=== PATIENT | male | born 1950 | race Caucasian/White ===

== ENCOUNTER 2016-03-14 17:41 | Inpatient (IN) | payer MEDICARE, OTHER ==
[~2016-03-14] VITALS: Ht 170.2 cm; Wt 72.0 kg
[~2016-03-14 17:41] MED LIST: ACET325T45 GTB; ALBU2.5V3 NEB; ASCO500C7 GTB; ASPI-535 GTB; BACL20TA GTB; BISA10SU58 PR; CHLO10TA4 GTB; CHOL2000 GTB; CRAN3875 GTB; DICY10CA60 GTB; DIPH25CA6 GTB; DOCU-159 PO; ENOX40DI14 SC; ESCI10TA48 GTB; FENO145T19 GTB; GLAT40SY SQ; HIPR1 GTB; IBAN3DIS2 IV; KEP100S GTB; LANS30CA GTB; LORA1TAB GTB; MAGN400O4 GTB; NA P118E PR; OMEG100011 GTB; POTA20LI5 GTB; SACC250C GTB; SALI44.32 MM; TYL500 GTB; UBID100T7 GTB; ZOLP5TAB6 GTB
[2016-03-14 18:00] VITALS: TEMP 97.8
[2016-03-14] MEDS ORDERED: SODIUM CHLORIDE 0.9% 1L BAG IV* STA (18:03)
[2016-03-14] MEDS ORDERED: CEFEPIME 2GM/50 ML (PMX) 50 ML IVPB STA (18:03)
[2016-03-14] MEDS ORDERED: ESCI10TA GTB (18:19)
[2016-03-14] MEDS ORDERED: FENO145T25 GTB (18:19)
[2016-03-14] MEDS ORDERED: LORA1TAB GTB (18:20)
[2016-03-14] MEDS ORDERED: ZOLP5TAB GTB (18:21)
[2016-03-14] MEDS ORDERED: LANS30CA GTB (18:22)
[2016-03-14 18:27] LABS: BASOPHILS % 0.6 % (0.0-2.0); EOSINOPHILS # 0.5 10^3/ul (0.0-0.5); EOSINOPHILS % 8.3 % (0.0-7.0); HEMATOCRIT 41.4 % (42.0-52.0); HEMOGLOBIN 13.8 g/dl (14.0-18.0); LYMPHOCYTES # 1.5 10^3/ul (0.8-2.9); LYMPHOCYTES % 26.5 % (15.0-51.0); MEAN CORPUSCULAR HEMOGLOBIN 31.8 pg (29.0-33.0); MEAN CORPUSCULAR HGB CONC 33.3 g/dl (32.0-37.0); MEAN CORPUSCULAR VOLUME 95.2 fl (82.0-101.0); MEAN PLATELET VOLUME 10.4 fl (7.4-10.4); MONOCYTE # 0.6 10^3/ul (0.3-0.9); MONOCYTES % 11.1 % (0.0-11.0); NEUTROPHIL # 2.9 10^3/ul (1.6-7.5); NEUTROPHILS % 53.5 % (39.0-77.0); PLATELET COUNT 230 10^3/UL (140-440); RED BLOOD COUNT 4.35 10^6/ul (4.70-6.10); RED CELL DISTRIBUTION WIDTH 13.7 % (11.5-14.5); UNCORRECTED WBC 5.5 10^3/ul (4.8-10.8); WHITE BLOOD COUNT 5.5 10^3/ul (4.8-10.8)
[2016-03-14] MEDS ORDERED: ENOX40DI14 SC (18:27)
[2016-03-14 18:28] LABS: CONDITION 1
[2016-03-14] MEDS ORDERED: VANCOMYCIN 1 GM (PMX) 250 ML IVPB ONE (18:30)
[2016-03-14 18:38] LABS: INR 1.04; PROTIME 13.6 Sec (12.2-14.2); PT RATIO 1.1
[2016-03-14 18:39] LABS: ALBUMIN 4.1 g/dl (3.3-4.9); CHLORIDE 102 mmol/L (97-110); PARTIAL THROMBOPLASTIN TIME 32.7 Sec (25.0-35.0); SODIUM 143 mmol/L (135-144)
[2016-03-14 18:41] LABS: CREATININE 0.72 mg/dl (0.61-1.24)
[2016-03-14 18:42] LABS: ALANINE AMINOTRANSFERASE 23 IU/L (13-69); ALBUMIN/GLOBULIN RATIO 1.07; ALKALINE PHOSPHATASE 55 IU/L (42-121); ANION GAP 16 (8-16); ASPARTATE AMINO TRANSFERASE 20 IU/L (15-46); BILIRUBIN,INDIRECT 0.1 mg/dl (0-1.1); BILIRUBIN,TOTAL 0.1 mg/dl (0.2-1.3); BLOOD UREA NITROGEN 12 mg/dl (7-20); CALCIUM 9.3 mg/dl (8.4-10.2); CARBON DIOXIDE 29 mmol/L (21-31); GLUCOSE 87 mg/dl (70-220); TOTAL PROTEIN 7.9 g/dl (6.1-8.1)
[2016-03-14 18:46] LABS: ADD UMIC YES; URINE BILIRUBIN (Dip) NEGATIVE (NEGATIVE); URINE BLOOD (Dip) 3+ (NEGATIVE); URINE COLOR DK. RED (YELLOW); URINE KETONES (Dip) 15 (NEGATIVE); URINE LEUKOCYTE ESTERASE (Dip) 2+ (NEGATIVE); URINE NITRITE (Dip) POSITIVE (NEGATIVE); URINE TOTAL PROTEIN (Dip) 4+ (NEGATIVE); URINE UROBILINOGEN (Dip) 4.0 E.U./dL (0.1-1.0)
[2016-03-14 18:50] LABS: URINE RBCS >200 /HPF (0)
[2016-03-14 18:51] LABS: BACTERIA,URINE FEW; SQUAMOUS EPITHELIAL CELL,UR OCCASIONAL
--- NOTE | 2016-03-14 18:52 | RADRPT ---
PROCEDURE: XR Chest. CLINICAL INDICATION: Sepsis TECHNIQUE: Anterior chest x-ray. COMPARISON: 01/11/2016 FINDINGS: Exam is limited due to rotated positioning. Tracheostomy is unchanged from previous exam. The lungs are clear. No pleural effusion identified. There is no evidence of pneumothorax. The cardiomediastinal silhouette is unremarkable. The soft tissues are normal. Osseous structures are unremarkable. IMPRESSION: 1. No acute disease is seen in the chest. No significant change from previous exam. RPTAT: QQ .Matheus Hearn MD, MD Date Time Electronically viewed and signed by .Matheus Hearn MD, MD on 03/14/2016 18:51 .M/
[2016-03-14 18:57] LABS: TROPONIN-I < 0.012 ng/ml (0.00-0.12)
[2016-03-14] MEDS ORDERED: ONDANSETRON 4 MG INJ IV PRN ×3 (19:30→22:00)
[2016-03-14] MEDS ORDERED: ACETAMINOPHEN 325 MG TAB PO PRN (19:30)
--- NOTE | 2016-03-14 19:51 | ERA ---
ER Documentation Chief Complaint Date/Time DATE: 03/14/16 TIME: 19:48 Chief Complaint blood in urine since this morning HPI Patient is a 65-year-old male with multiple sclerosis and previous UTI who presents with blood in his Brock catheter. He has a history of sepsis and UTI. He came from a nursing facility. He has a history of ESBL in the urine per the . His blood started this morning in the Brock catheter. He had fever night. His primary doctors Dr. Brown and his urologist in the past is Dr. Douglas. Upon review of old medical records this is the patient's ninth visit to the ER since 2009. ROS All systems reviewed and are negative except as per history of present illness. Medications Home Meds Reported Medications Enoxaparin Sodium* (Lovenox*) 40 Mg/0.4 Ml Syringe, 40 MG SC DAILY, SYR 03/14/16 Lansoprazole* (Lansoprazole*) 30 Mg Capsule.dr, 30 MG GTB DAILY, CAP 03/14/16 Zolpidem Tartrate* (Ambien*) 5 Mg Tablet, 5 MG GTB QHS Y for INSOMNIA, #30 TAB 03/14/16 Lorazepam* (Lorazepam*) 1 Mg Tablet, 1 MG GTB HS, #30 TAB 03/14/16 Fenofibrate Nanocrystallized* (Tricor*) 145 Mg Tablet, 145 MG GTB QHS, TAB 03/14/16 Escitalopram Oxalate* (Lexapro*) 10 Mg Tablet, 10 MG GTB DAILY, #30 TAB 03/14/16 Diphenhydramine Hcl* (Diphenhydramine Hcl*) 25 Mg Capsule, 25 MG GTB DAILY Y for ITCHING, CAP 01/11/16 Ubidecarenone (COENZYME Q10) 100 Mg Tablet, 200 MG GTB DAILY, TAB 07/18/15 Saliva Stimulant Agents Comb.2 (Biotene Oralbalance) 44.3 Ml Liquid, 1 TBS MM Q6 RINSE FOR 30 SECONDS THEN SPIT OUT 10/11/14 Saccharomyces Boulardii* (Florastor*) 250 Mg Cap, 250 MG GTB BID, CAP 10/11/14 Potassium Chloride* (Potassium Chloride*) 20 Meq/15 Ml Liquid, 20 MEQ GTB DAILY , ML 10/11/14 Voss-3 Fatty Acids/Fish Oil* (Fish Oil *) 1,000 Mg Capsule, 1000 MG GTB DAILY, CAP 10/11/14 Levetiracetam* (Keppra* (Ped)) 100 Mg/Ml Liq, 1000 MG GTB BID for 30 Days, BOTTLE 10/11/14 Ibandronate Sodium (Boniva) 3 Mg/3 Ml/Box Syringekit, 3 MG IV Q90 DAYS 10/11/14 Glatiramer Acetate (Copaxone) 40 Mg/1 Ml Syringe, 40 MG SQ MON,WED,Wed10/11/14 Dicyclomine Hcl* (Bentyl*) 10 Mg Capsule, 10 MG GTB BID, CAP 10/11/14 Cholecalciferol* (Vitamin D3*) 2,000 Unit Cap, 2000 UNIT GTB DAILY, CAP 10/11/14 Chlorpromazine Hcl* (Chlorpromazine Hcl*) 10 Mg Tablet, 10 MG GTB Q12 PRN, TAB 10/11/14 Baclofen* (Baclofen*) 20 Mg Tablet, 20 MG GTB QID, TAB 10/11/14 Methenamine Hippurate* (Hiprex*) 1 Gm Tab, 1 GM GTB BID 11/29/12 Aspirin Ec (Aspir 81) 81 Mg Tablet.dr, 81 MG GTB DAILY 11/29/12 Discontinued Reported Medications Escitalopram Oxalate* (Escitalopram Oxalate*) 10 Mg Tablet, 10 MG GTB DAILY, # 30 TAB 01/11/16 Docusate Sodium* (Docusate Sodium*) 100 Mg Capsule, 200 MG PO BID, #60 CAP 01/11/16 Lorazepam* (Lorazepam*) 1 Mg Tablet, 1 MG GTB DAILY Y for MUSCLE SPASMS, #30 TAB 01/11/16 Zolpidem Tartrate* (Zolpidem Tartrate*) 5 Mg Tablet, 5 MG GTB QHS Y for INSOMNIA , #30 TAB 01/11/16 Fenofibrate Nanocrystallized* (Fenofibrate*) 145 Mg Tablet, 145 MG GTB QHS, TAB 01/11/16 Acetaminophen* (Acetaminophen*) 325 Mg Tablet, 650 MG GTB Q6 Y for TEMP >101F, # 30 TAB 01/11/16 Ascorbic Acid* (Vitamin C*) 500 Mg Capsule.sa, 500 MG GTB DAILY, CAP 07/18/15 Cran/Vitc/Mannose/Inulin/Brom (Uti-Stat Liquid) 3,875 Mg/30 Ml Liquid, 3875 MG GTB 07/18/15 Magnesium Hydroxide* (Milk Of Magnesia*) 400 Mg/5 Ml Oral.susp, 30 ML GTB DAILY , ML 07/18/15 Na Phos,M-B/Na Phos,Di-Ba* (Fleet* Enema) 118 Ml Enema, 118 ML WV Q48H Y for CONSTIPATION, ENEMA 07/18/15 Bisacodyl* (Dulcolax*) 10 Mg/Supp.rect Supp.rect, 10 MG WV DAILY Y for CONSTIPATION, SUPP.RECT 07/18/15 Acetaminophen* (Tylenol*) 500 Mg Tab, 1000 MG GTB Q8H Y for PAIN 4-6, TAB TAKE EVERY DAY FOR PAIN AND PRIOR TO IVIG INFUSION 10/11/14 Albuterol Sulfate* (Albuterol Sulfate* Neb) 0.083%-3 Ml Neb, 2.5 MG NEB Q6 Y for WHEEZING AND SOB, EA WITH ATROVENT 0.5 MG UD VIA Q6H 10/11/14 Lansoprazole* (Lansoprazole*) 30 Mg Capsule.dr, 30 MG GTB DAILY, CAP 10/11/14 Enoxaparin Sodium* (Lovenox*) 40 Mg/0.4 Ml Syringe, 40 MG SC DAILY, SYR 10/11/14 Allergies Allergies: Coded Allergies: phenobarbital (Verified Allergy, Mild, UNK, 03/14/16) phenytoin (Verified Allergy, Mild, UNK, 03/14/16) PMhx/Soc History of Surgery: Yes (PEG, TRACH, RENAL STONES REMOVAL) Anesthesia Reaction: No Hx Neurological Disorder: Yes (MS) Hx Respiratory Disorders: Yes (VENT DEPENDENT) Hx Cardiac Disorders: Yes (CHF) Hx Psychiatric Problems: Yes Hx Miscellaneous Medical Probl: No Hx Alcohol Use: Yes Hx Substance Use: No Hx Tobacco Use: No Smoking Status: Unknown if ever smoked FmHx Family History: No diabetes Physical Exam Vitals Vital Signs Date Time Temp Pulse Resp B/P Pulse Ox O2 Delivery O2 Flow Rate FiO2 03/14/16 19:32 73 18 104/68 100 Room Air Trach Collar 03/14/16 18:00 97.8 74 20 107/65 97 Room Air 03/14/16 17:46 97.8 82 20 113/59 97 Physical Exam Const: Chronically ill Head: Atraumatic Eyes: Normal Conjunctiva ENT: Normal External Ears, Nose and Mouth. Neck: Full range of motion..~ No meningismus. Resp: Clear to auscultation bilaterally Cardio: Regular rate and rhythm, no murmurs Abd: Soft, non tender, non distended. Normal bowel sounds, G-tube in place Skin: No petechiae or rashes Back: No midline or flank tenderness Ext: No cyanosis, or edema Neur: Awake and alert : Brock catheter in place with gross hematuria in the tube and bag Result Diagram: 03/14/16181403/14/161814 Results 24 hrs Laboratory Tests Test 03/14/16 18:15 03/14/16 18:25 Activated Partial Thromboplast Time 32.7Sec Alanine Aminotransferase (ALT/SGPT) 23IU/L Albumin 4.1g/dl Albumin/Globulin Ratio 1.07 Alkaline Phosphatase 55IU/L Anion Gap 16 Aspartate Amino Transf (AST/SGOT) 20IU/L Basophils # 0.010^3/ul Basophils % 0.6% Blood Urea Nitrogen 12mg/dl Calcium Level 9.3mg/dl Carbon Dioxide Level 29mmol/L Chloride Level 102mmol/L Creatinine 0.72mg/dl Direct Bilirubin 0.00mg/dl Eosinophils # 0.510^3/ul Eosinophils % 8.3% Globulin 3.80g/dl Glucose Level 87mg/dl Hematocrit 41.4% Hemoglobin 13.8g/dl INR International Normalized Ratio 1.04 Indirect Bilirubin 0.1mg/dl Lactic Acid Level 1.2mmol/L Lymphocytes # 1.510^3/ul Lymphocytes % 26.5% Mean Corpuscular Hemoglobin 31.8pg Mean Corpuscular Hemoglobin Concent 33.3g/dl Mean Corpuscular Volume 95.2fl Mean Platelet Volume 10.4fl Monocytes # 0.610^3/ul Monocytes % 11.1% Neutrophils # 2.910^3/ul Neutrophils % 53.5% Nucleated Red Blood Cells # 0.010^3/ul Nucleated Red Blood Cells % 0.0/100WBC Platelet Count 71508^3/UL Potassium Level 4.0mmol/L Prothrombin Time 13.6Sec Prothrombin Time Ratio 1.1 Red Blood Count 4.3510^6/ul Red Cell Distribution Width 13.7% Sodium Level 143mmol/L Total Bilirubin 0.1mg/dl Total Protein 7.9g/dl Troponin I < 0.012ng/ml White Blood Count 5.510^3/ul Urine Bacteria FEW Urine Bilirubin NEGATIVE Urine Clarity BLOODY Urine Color DK. RED Urine Glucose 0.1%% Urine Hemoglobin 3+ Urine Ketones 15 Urine Leukocyte Esterase 2+ Urine Microscopic RBC >200/HPF Urine Microscopic WBC 10-25/HPF Urine Nitrite POSITIVE Urine Specific [place] 1.010 Urine Squamous Epithelial Cells OCCASIONAL Urine Total Protein 4+ Urine Urobilinogen 4.0 E.U./dL Urine pH 7.0 Current Medications Medications (Trade) Dose Ordered Sig/Kobe Route PRN Reason Start Time Stop Time Status Last Admin Dose Admin Sodium Chloride 2230 ml 2,230 ml BOLUS OVER 2 HOURS STAT IV* 03/14/16 18:03 03/14/16 18:05 DC 03/14/16 18:29 Cefepime HCl 50 ml @ 100 mls/hr ONCE STAT IVPB 03/14/16 18:03 03/14/16 18:32 DC 03/14/16 18:29 Vancomycin HCl (Vancocin) 250 ml @ 125 mls/hr ONCE ONCE IVPB 03/14/16 18:30 03/14/16 20:29 Ondansetron HCl (Zofran Inj) 4 mg BRIDGE ORDER PRN IV NAUSEA AND/OR VOMITING 03/14/16 19:30 03/15/16 19:29 Acetaminophen (Tylenol Tab) 650 mg ER BRIDGE PRN PO MILD PAIN/FEVER 03/14/16 19:30 03/15/16 19:29 Procedures/MDM EKG read by me: Rate/Rhythm: Regular rate and rhythm at a normal rate Intervals: Normal Impression: No evidence of ischemia or arrhythmia Chest x-ray negative per radiology. Patient is a 65-year-old male who presents with acute cystitis. He is complicated given the fact that he has MS and a chronic indwelling Brock catheter. The patient was given broad-spectrum antibiotics of vancomycin and cefepime. He was given at 30 mL/kg fluid bolus for fluid resuscitation as well. However at this point I doubt sepsis. I believe the patient has hematuria secondary to the cystitis. The patient will be admitted to the care of Dr. Hale who is covering for Dr. Brown. I will leave consultation for urology up to the inpatient team given the fact that treatment of the UTI may help the hematuria as well. The patient will be admitted to a medical surgical bed. I do believe that inpatient admission is required. The patient has anemia but no need for transfusion at this time. Departure Diagnosis: Primary Impression: Hematuria Additional Impressions: UTI (urinary tract infection) Qualified Code: N30.01 - Acute cystitis with hematuria Anemia Qualified Code: D64.9 - Anemia, unspecified type Condition: MARIE Stephen MD Mar 14, 2016 19:51
[2016-03-14 20:48] VITALS: Ht 170.2 cm; Wt 72.0 kg
[2016-03-14 21:03] VITALS: BP 121/60; PULSE 66; RESP 18
[2016-03-14] MEDS ORDERED: morphine 2 MG INJ IV PRN (21:30)
[2016-03-14] MEDS ORDERED: ZOLPIDEM 5 MG TAB GTB PRN (21:30)
[2016-03-14] MEDS ORDERED: NON-FORMULARY/PATIENT OWN MED (Glatiramer Acetate (Copaxone) 40 MG) SQ SCH (21:30)
[2016-03-14] MEDS ORDERED: IBANDRONATE SODIUM XX SCH (21:30)
[2016-03-14] MEDS: ALBUTEROL 0.083% (NEB) 2.5 MG/3 ML AMP HHN PRN (22:34)
[2016-03-15] MEDS: LORAZEPAM 1 MG TAB GTB SCH ×3 (00:40→23:49)
[2016-03-15 06:16] LABS: HEMATOCRIT 37.2 % (42.0-52.0); HEMOGLOBIN 12.6 g/dl (14.0-18.0); LYMPHOCYTES % 17.9 % (15.0-51.0); MEAN CORPUSCULAR HGB CONC 33.9 g/dl (32.0-37.0); MEAN CORPUSCULAR VOLUME 94.3 fl (82.0-101.0); MEAN PLATELET VOLUME 11.1 fl (7.4-10.4); NEUTROPHILS % 64.7 % (39.0-77.0); PLATELET COUNT 193 10^3/UL (140-440); RED BLOOD COUNT 3.95 10^6/ul (4.70-6.10); RED CELL DISTRIBUTION WIDTH 13.6 % (11.5-14.5); UNCORRECTED WBC 6.3 10^3/ul (4.8-10.8); WHITE BLOOD COUNT 6.3 10^3/ul (4.8-10.8)
[2016-03-15 06:17] LABS: BASOPHILS % 0.6 % (0.0-2.0); EOSINOPHILS # 0.5 10^3/ul (0.0-0.5); EOSINOPHILS % 7.8 % (0.0-7.0); LYMPHOCYTES # 1.1 10^3/ul (0.8-2.9); MONOCYTE # 0.6 10^3/ul (0.3-0.9); NEUTROPHIL # 4.1 10^3/ul (1.6-7.5)
[2016-03-15 06:18] LABS: POTASSIUM 3.8 mmol/L (3.5-5.1)
[2016-03-15 06:20] LABS: CREATININE 0.67 mg/dl (0.61-1.24)
[2016-03-15 06:21] LABS: CALCIUM 8.4 mg/dl (8.4-10.2)
[2016-03-15] MEDS: LANSOPRAZOLE 30 MG CAP GTB SCH (06:21)
[2016-03-15 07:01] LABS: CONDITION 1
[2016-03-15 08:10] VITALS: BP 105/60; RESP 18
[2016-03-15] MEDS: ALBUTEROL 0.083% (NEB) 2.5 MG/3 ML AMP HHN PRN (08:28)
[2016-03-15] MEDS: ASPIRIN (EC) 81 MG TAB PO SCH (09:00)
[2016-03-15] MEDS ORDERED: POTASSIUM CHLORIDE (1.33 MEQ/ML PO SYG) GTB SCH (09:00)
[2016-03-15] MEDS ORDERED: LEVETIRACETAM (100 MG/ML PO SYG) GTB SCH (09:00)
[2016-03-15] MEDS ORDERED: UBIDECARENONE 200 MG GTB SCH (09:00)
[2016-03-15] MEDS: ENOXAPARIN 30 MG/0.3 ML SYG SC SCH ×2 (09:00→21:00)
[2016-03-15] MEDS ORDERED: E LYTES MM PRN (10:30)
[2016-03-15] MEDS ORDERED: [UNRECOGNIZED DRUG - OTHER] MM PRN (10:30)
[2016-03-15] MEDS: ESCITALOPRAM 10 MG TAB GTB SCH (10:31)
[2016-03-15] MEDS: FISH OIL 1,000 MG CAP PO SCH (10:31)
[2016-03-15] MEDS: METHENAMINE 1 GM TAB GTB SCH ×2 (10:31→21:59)
[2016-03-15] MEDS: BACLOFEN 10 MG TAB GTB SCH ×4 (10:32→21:56)
[2016-03-15] MEDS: CHOLECALCIFEROL 2,000 UNIT CAP GTB SCH (10:32)
[2016-03-15] MEDS: SACCHAROMYCES BOULARDII 250 MG CAP GTB SCH ×2 (10:32→21:57)
[2016-03-15] MEDS: DICYCLOMINE 10 MG CAP GTB SCH ×2 (10:32→21:57)
[2016-03-15] MEDS: LEVETIRACETAM (100 MG/ML) 5ML CUP GTB SCH ×2 (10:32→21:56)
[2016-03-15] MEDS: CHLORPROMAZINE 10 MG TAB GTB SCH ×2 (10:33→21:00)
[2016-03-15] MEDS: POTASSIUM CHLORIDE 20 MEQ POWDER FOR ORAL SOLN GTB SCH (10:33)
[2016-03-15] MEDS: CEFEPIME 1GM/50 ML (PMX) 50 ML IVPB SCH ×2 (10:34→21:57)
--- NOTE | 2016-03-15 11:42 | HP ---
Date/Time of Note Date/Time of Note DATE: 03/15/16 TIME: 11:40 Assessment/Plan VTE Prophylaxis VTE Prophylaxis Intervention: other Lines/Catheters Urinary Cath still in place: Yes Reason Cath still needed: skin wounds contaminated by urine Assessment/Plan Chief Complaint/Hosp Course 1) hematuria - IV antibiotics - consult urology 2) respiratory failure - appear to be stable at this point 3) MS - continue medications 4) seizure disorder - continue medications Problems: HPI/ROS Admit Date/Time Admit Date/Time Mar 14, 2016 at 19:18 Hx of Present Illness Patient with multiple sclerosis, respiratory failure, and seizure disorder comes in with large amounts of hematuria. Patient has had this problem in the past. PMH/Family/Social Past Medical History multiple sclerosis seizure disorder respiratory failure Social History Alcohol Use: none Smoking Status: Never smoker Exam/Review of Systems Vital Signs Vitals Vital Signs Date Time Temp Pulse Resp B/P Pulse Ox O2 Delivery O2 Flow Rate FiO2 03/15/16 08:28 67 16 98 Nasal Cannula 2.0 03/15/16 08:10 97.4 105/60 03/14/16 22:35 21 Intake and Output 03/14/16 03/14/16 03/15/16 15:00 23:00 07:00 Intake Total 50 ml Output Total 600 ml Balance 50 ml -600 ml Exam Constitutional: alert, well developed Head: atraumatic, normocephalic Neck: supple Respiratory: clear to auscultation Cardiovascular: regular rate and rhythm Gastrointestinal: non-tender, soft Extremities: normal pulses Labs Result Diagram: 03/15/16 0500 03/15/16 0500 Medications Medications Current Medications Cefepime HCl (Maxipime 1gm/50 ml (Pmx)) 50 ml @ 100 mls/hr Q12 IVPB Last administered on 03/15/16 10:34; Admin Dose 100 MLS/HR; Start 03/15/16 at 09:00 Enoxaparin Sodium (Lovenox) 30 mg BID SC ; Start 03/15/16 at 09:00 Morphine Sulfate (morphine) 2 mg Q4H PRN IV pain; Start 03/14/16 at 21:30 Aspirin (Halfprin) 81 mg DAILY PO ; Start 03/15/16 at 09:00 Baclofen (Lioresal) 20 mg QID GTB Last administered on 03/15/16 10:32; Admin Dose 20 MG; Start 03/15/16 at 09:00 Chlorpromazine (Thorazine) 10 mg BID GTB Last administered on 03/15/16 10:33; Admin Dose 10 MG; Start 03/15/16 at 09:00 Cholecalciferol (Vitamin D) 2,000 unit DAILY GTB Last administered on 03/15/16 10:32; Admin Dose 2,000 UNIT; Start 03/15/16 at 09:00 Dicyclomine HCl (Bentyl) 10 mg BID GTB Last administered on 03/15/16 10:32; Admin Dose 10 MG; Start 03/15/16 at 09:00 Diphenhydramine HCl (Benadryl) 25 mg DAILY PRN GTB ITCHING; Start 03/14/16 at 21:30 Escitalopram Oxalate (Lexapro) 10 mg DAILY GTB Last administered on 03/15/16 10 :31; Admin Dose 10 MG; Start 03/15/16 at 09:00 Fenofibrate (Tricor) 145 mg QHS GTB ; Start 03/15/16 at 21:00 Lansoprazole (Prevacid) 30 mg DAILY@06 GTB Last administered on 03/15/16 06:21 ; Admin Dose 30 MG; Start 03/15/16 at 06:00 Lorazepam (Ativan) 1 mg HS GTB Last administered on 03/15/16 00:40; Admin Dose 1 MG; Start 03/15/16 at 00:00 Methenamine (Hiprex) 1 gm BID GTB Last administered on 03/15/16 10:31; Admin Dose 1 GM; Start 03/15/16 at 09:00 Fish Oil (Fish Oil) 1,000 mg DAILY PO Last administered on 03/15/16 10:31; Admin Dose 1,000 MG; Start 03/15/16 at 09:00 Saccharomyces Boulardii (Florastor) 250 mg BID GTB Last administered on 10:32; Admin Dose 250 MG; Start 03/15/16 at 09:00 Zolpidem Tartrate (Ambien) 5 mg QHS PRN GTB INSOMNIA; Start 03/14/16 at 21:30 Miscellaneous Information 40 mg MON,WED,FRI SQ ; Start 03/14/16 at 21:30; Status UNV Miscellaneous Information 1 tbs Q6 MM ; Start 03/15/16 at 00:00; Status UNV Levetiracetam (Keppra Liquid) 1,000 mg BID GTB Last administered on 03/15/16 10 :32; Admin Dose 1,000 MG; Start 03/15/16 at 09:00 Ondansetron HCl (Zofran Inj) 4 mg Q6H PRN IV NAUSEA AND/OR VOMITING; Start at 22:00 Potassium Chloride (Potassium Chloride Pwd/Soln) 20 meq DAILY GTB Last administered on 03/15/16 10:33; Admin Dose 20 MEQ; Start 03/15/16 at 09:00 Miscellaneous Information (*Order Clarification Bulletin) GLATIRAMER (COPAXONE) PLEASE H... Q8H XX ; Start 03/15/16 at 10:00 Miscellaneous Information (*Order Clarification Bulletin) IBANDRONATE (BONIVA) 3MG IV Q90DA... Q8H XX ; Start 03/15/16 at 10:00 RYAN MULLER Mar 15, 2016 11:42
[2016-03-15] MEDS: ALBUTEROL 0.083% (NEB) 2.5 MG/3 ML AMP HHN SCH ×3 (15:02→23:45)
--- NOTE | 2016-03-15 19:16 | CONS ---
DATE OF ADMISSION: 03/14/2016 DATE OF CONSULTATION: 03/15/2016 REQUESTING PHYSICIAN: Dr. Lupe Hale/Dr. Brown HISTORY OF PRESENT ILLNESS: This is a 65-year-old male who is well known to me for many years. He is known to have a history of multiple sclerosis and neurogenic bladder, history of urinary retentio n, urethral stricture, bladder stones, recurrent urinary tract infections. The patient was admitted to the hospital from the half-way facility because of gross hematuria. He did have gross he maturia in his catheter, then they removed the catheter, put a new one. He continued to have hematu jalen and therefore he was sent to the hospital and admitted. Patient was here earlier in December and at that time also was having a urinary tract infection. The patient also has a history of respirat ory failure, in fact he has a tracheostomy, seizure disorder, which the patient is bedridden and has a chronic indwelling Brock catheter. SOCIAL HISTORY: The patient does not smoke, does not drink any alcohol, and there is no history of drug abuse. ALLERGIES: ALLERGIC TO 1. PHENOBARBITAL. 2. PHENYTOIN. PHYSICAL EXAMINATION: GENERAL: Reveals a 65-year-old male who is bedridden and has a tracheostomy tube in place. ABDOMEN: Soft. There is no abdominal mass palpable. GENITOURINARY: The patient does have an indwelling Brock catheter that seems to be in good position and is draining blood-tinged urine. VITAL SIGNS: Temperature is 97.4, the pulse is 68, respiration 18, blood pressure 105/60. LABORATORY DATA: His CBC shows a white count of 6.3, hemoglobin 12.6, hematocrit 37.2, and the plat elet count is 193,000. BUN is 12, creatinine 0.67, sodium 144, potassium 3.8, chloride 105, CO2 28. PT is 13.6, INR 1.04. Urine culture is too young to evaluate. The blood culture is no growth. IMPRESSION: Gross hematuria in a patient with a history of bladder stones in the past and urinary t ract infection. PLAN: To continue him on the antibiotic. He is already on cefepime and will get the KUB to see tomeka t there are no bladder stones and we will continue him on the antibiotic and if there is any bladder stones, we will address that later on. I do thank you for allowing me to help in his care. Dictated By: ARIAN CORTES/DORON Conf#: [id number] DID#: [id number]
[2016-03-15 19:45] VITALS: BP 105/59; RESP 20
[2016-03-15] MEDS: FENOFIBRATE 145 MG TAB GTB SCH (21:57)
--- NOTE | 2016-03-16 02:07 | RADRPT ---
PROCEDURE: XR Abdomen. CLINICAL INDICATION: Bladder stones. TECHNIQUE: AP abdomen x-ray. COMPARISON: 08/11/2015 FINDINGS: An enterostomy tube is seen in the left abdomen. There is no evidence of bowel obstruction. There a re calcifications overlying both renal shadows most compatible with nonobstructive calculi. A oblon g, 2.1 cm long by 8 mm wide calcification is seen in the right hemipelvis, likely within the distal ureter. IMPRESSION: Bilateral nephrolithiasis. Probable calculus in the right distal ureter. RPTAT: HIKT .Jarad Arthur MD, MD Date Time Electronically viewed and signed by .Jarad Arthur MD, MD on 03/16/2016 02:07 .T/
[2016-03-16] MEDS: LANSOPRAZOLE 30 MG CAP GTB SCH (06:26)
[2016-03-16] MEDS: ALBUTEROL 0.083% (NEB) 2.5 MG/3 ML AMP HHN SCH ×3 (07:57→20:03)
[2016-03-16 08:11] VITALS: BP 96/57; RESP 16
[2016-03-16] MEDS: FISH OIL 1,000 MG CAP PO SCH (08:53)
[2016-03-16] MEDS: DICYCLOMINE 10 MG CAP GTB SCH ×2 (08:53→21:50)
[2016-03-16] MEDS: CHLORPROMAZINE 10 MG TAB GTB SCH ×2 (08:54→21:00)
[2016-03-16] MEDS: BACLOFEN 10 MG TAB GTB SCH ×4 (08:54→21:50)
[2016-03-16] MEDS: METHENAMINE 1 GM TAB GTB SCH ×2 (08:54→21:50)
[2016-03-16] MEDS: LEVETIRACETAM (100 MG/ML) 5ML CUP GTB SCH ×2 (08:54→22:07)
[2016-03-16] MEDS: ESCITALOPRAM 10 MG TAB GTB SCH (08:54)
[2016-03-16] MEDS: CHOLECALCIFEROL 2,000 UNIT CAP GTB SCH (08:54)
[2016-03-16] MEDS: POTASSIUM CHLORIDE 20 MEQ POWDER FOR ORAL SOLN GTB SCH (08:54)
[2016-03-16] MEDS: SACCHAROMYCES BOULARDII 250 MG CAP GTB SCH ×2 (08:54→21:50)
[2016-03-16] MEDS: ENOXAPARIN 30 MG/0.3 ML SYG SC SCH ×2 (08:55→21:00)
[2016-03-16] MEDS: ASPIRIN (EC) 81 MG TAB PO SCH (08:55)
[2016-03-16] MEDS: CEFEPIME 1GM/50 ML (PMX) 50 ML IVPB SCH ×2 (08:55→21:50)
--- NOTE | 2016-03-16 10:09 | PN ---
DATE: 03/16/2016 SUBJECTIVE: Gross hematuria. The patient has a chronic indwelling Brock catheter for urinary reten tion secondary to neurogenic bladder from multiple sclerosis, history of bladder stones. The patient is comfortable and has no complaints this morning. OBJECTIVE: VITAL SIGNS: His temperature is 97.8, pulse is 68, respiration is 16, blood pressure 96/57. ABDOMEN: Soft. There is no tenderness. Brock catheter is draining blood-tinged urine. IMAGING: The patient did have a KUB done yesterday, and that was reported as that there are bilatera l kidney stones and there is a possible stone in the distal right ureter measuring 2.1 cm x 8 mm. Th e patient is not taking any oral pills to think that this could be a pill in the bowel, so because o f the hematuria and that calcification and also the question of possibly even a bladder stone, the p manish is to do a CT scan of the abdomen and pelvis without IV contrast. LABORATORY: The laboratory data is from yesterday: His BUN is 12, creatinine 0.67. CBC: White coun t 6.3, hemoglobin 12.6, hematocrit 37 . IMPRESSION AND PLAN: I discussed the possible findings with the patient and his and will wait f or the result of the CT scan. Dictated By: ARIAN CORTES/DORON Conf#: [id number] DID#: [id number]
--- NOTE | 2016-03-16 12:48 | PN ---
Date/Time of Note Date/Time of Note DATE: 03/16/16 TIME: 12:47 Assessment/Plan VTE Prophylaxis VTE Prophylaxis Intervention: LMWH Lines/Catheters IV Catheter Type (from Nrs): Saline Lock Urinary Cath still in place: Yes Reason Cath still needed: skin wounds contaminated by urine Assessment/Plan Chief Complaint/Hosp Course 1) hematuria - IV antibiotics - appreciate urology input - seem to be improving 2) respiratory failure - appear to be stable at this point 3) MS - continue medications 4) seizure disorder - continue medications Problems: Subjective 24 Hr Interval Summary Free Text/Dictation Patient has no complaints Exam/Review of Systems Vital Signs Vitals Vital Signs Date Time Temp Pulse Resp B/P Pulse Ox O2 Delivery O2 Flow Rate FiO2 03/16/16 08:11 97.8 68 16 96/57 100 03/16/16 08:03 21 03/15/16 08:28 Nasal Cannula 2.0 Intake and Output 03/15/16 03/15/16 03/16/16 14:59 22:59 06:59 Intake Total 1250 ml 50 ml Output Total 900 ml 700 ml Balance 350 ml -650 ml Exam Constitutional: well developed Neck: supple Respiratory: clear to auscultation Cardiovascular: regular rate and rhythm Gastrointestinal: non-tender, soft Extremities: normal pulses Results Result Diagram: 03/15/16 0500 03/15/16 0500 Medications Medications Current Medications Cefepime HCl (Maxipime 1gm/50 ml (Pmx)) 50 ml @ 100 mls/hr Q12 IVPB Last administered on 03/16/16 08:55; Admin Dose 100 MLS/HR; Start 03/15/16 at 09:00 Enoxaparin Sodium (Lovenox) 30 mg BID SC ; Start 03/15/16 at 09:00 Morphine Sulfate (morphine) 2 mg Q4H PRN IV pain; Start 03/14/16 at 21:30 Aspirin (Halfprin) 81 mg DAILY PO ; Start 03/15/16 at 09:00 Baclofen (Lioresal) 20 mg QID GTB Last administered on 03/16/16 12:08; Admin Dose 20 MG; Start 03/15/16 at 09:00 Chlorpromazine (Thorazine) 10 mg BID GTB Last administered on 03/16/16 08:54; Admin Dose 10 MG; Start 03/15/16 at 09:00 Cholecalciferol (Vitamin D) 2,000 unit DAILY GTB Last administered on 03/16/16 08:54; Admin Dose 2,000 UNIT; Start 03/15/16 at 09:00 Dicyclomine HCl (Bentyl) 10 mg BID GTB Last administered on 03/16/16 08:53; Admin Dose 10 MG; Start 03/15/16 at 09:00 Diphenhydramine HCl (Benadryl) 25 mg DAILY PRN GTB ITCHING; Start 03/14/16 at 21:30 Escitalopram Oxalate (Lexapro) 10 mg DAILY GTB Last administered on 03/16/16 08 :54; Admin Dose 10 MG; Start 03/15/16 at 09:00 Fenofibrate (Tricor) 145 mg QHS GTB Last administered on 03/15/16 21:57; Admin Dose 145 MG; Start 03/15/16 at 21:00 Lansoprazole (Prevacid) 30 mg DAILY@06 GTB Last administered on 03/16/16 06:26 ; Admin Dose 30 MG; Start 03/15/16 at 06:00 Lorazepam (Ativan) 1 mg HS GTB Last administered on 03/15/16 23:49; Admin Dose 1 MG; Start 03/15/16 at 00:00 Methenamine (Hiprex) 1 gm BID GTB Last administered on 03/16/16 08:54; Admin Dose 1 GM; Start 03/15/16 at 09:00 Fish Oil (Fish Oil) 1,000 mg DAILY PO Last administered on 03/16/16 08:53; Admin Dose 1,000 MG; Start 03/15/16 at 09:00 Saccharomyces Boulardii (Florastor) 250 mg BID GTB Last administered on 08:54; Admin Dose 250 MG; Start 03/15/16 at 09:00 Zolpidem Tartrate (Ambien) 5 mg QHS PRN GTB INSOMNIA; Start 03/14/16 at 21:30 Miscellaneous Information 40 mg MON,WED,FRI SQ ; Start 03/14/16 at 21:30; Status UNV Miscellaneous Information 1 tbs Q6 MM ; Start 03/15/16 at 00:00; Status UNV Levetiracetam (Keppra Liquid) 1,000 mg BID GTB Last administered on 03/16/16 08 :54; Admin Dose 1,000 MG; Start 03/15/16 at 09:00 Ondansetron HCl (Zofran Inj) 4 mg Q6H PRN IV NAUSEA AND/OR VOMITING; Start at 22:00 Potassium Chloride (Potassium Chloride Pwd/Soln) 20 meq DAILY GTB Last administered on 03/16/16 08:54; Admin Dose 20 MEQ; Start 03/15/16 at 09:00 RYAN MULLER Mar 16, 2016 12:48
--- NOTE | 2016-03-16 15:30 | RADRPT ---
PROCEDURE: CT Abdomen and Pelvis without contrast. CLINICAL INDICATION: Flank pain. Renal stones. TECHNIQUE: CT scan of the abdomen and pelvis without contrast was performed on a multidetector hig h-resolution CT scanner. The patient was scanned without intravenous contrast. Coronal and sagittal reformatted images were obtained from the axial source images. Images were reviewed on a high-resol [employer] PACS workstation. The total exam CTDI equals 12.71 mGy and the total exam DLP equals 740.38 mG y-cm. One or more of the following dose reduction techniques were used: Automated exposure control. Adjustment of the mA and/or kV according to patient size. Use of iterative reconstruction technique. COMPARISON: KUB 03/15/2016 and 08/11/2015 FINDINGS: CT abdomen: The lung bases are remarkable for mild bibasilar atelectasis. The heart size is normal, without per icardial thickening or effusion. The liver is normal in size and density without focal mass or intr ahepatic biliary dilatation. The spleen is normal in size and homogeneous in density. Gastrostomy tube is in place. The stomach is partially collapsed, but is grossly unremarkable. The pancreas as visualized is normal. The gallbladder is remarkable for multiple calcified gallstones. biliary murtaza e are unremarkable and there is no evidence for biliary dilatation. The adrenal glands are symmetri c and normal. There are multiple bilateral renal stones measures up to 7 mm in the interpolar region of the left k idney and 6 mm in the lower pole right kidney. There is no hydronephrosis. There is approximately 2 x 0.8 cm stone in the distal right ureter. There is no definite stone in the urinary bladder. Th e urinary bladder is decompressed with Brock catheter in place. There is mild perivesical fatty str anding. Multifocal cortical atrophy of the upper and lower pole of the of the right kidney. There is approximately 2.2 cm partially exophytic cyst in the interpolar region of the left kidney. The aorta is of normal caliber. Aortic vascular calcifications are present. There is no retroperit solares lymphadenopathy. The jarocho hepatis region is clear. The bowel and mesentery, as visualized, are equally unremarkable. CT pelvis: The small bowel loops situated within the pelvis are unremarkable. There is mild prostatomegaly. Th e pelvic sidewalls and inguinal regions are clear. The sigmoid colon and rectum are unremarkable. No mass, lymphadenopathy, or free fluid is seen. No acute inflammation is seen. The surrounding os seous structures are remarkable for degenerative spondylosis of the spine. No osteolytic or osteobl astic lesion is detected. IMPRESSION: 1. Multiple bilateral nonobstructing renal stones measures up to 7 mm in the left kidney and 6 mm in the lower pole right kidney. 2. Approximately 2 x 0.8 cm stone in the distal right ureter. No hydronephrosis. 3. Multifocal cortical scarring in the right kidney. 4. Decompressed urinary bladder with perivesical fatty stranding. Brock catheter is identified in the urinary bladder. 5. Mild prostatomegaly. 6. Cholelithiasis without evidence of acute cholecystitis. 7. Gastrostomy tube is in satisfactory position. 8. Scattered aortic vascular calcifications. RPTAT: BB .Gabriela Chapa MD, Date Time Electronically viewed and signed by .Gabriela Chapa MD, on 03/16/2016 15:30 .O/
[2016-03-16] MEDS: DIPHENHYDRAMINE 25 MG CAP GTB PRN (16:05)
[2016-03-16 20:17] VITALS: BP 106/58; RESP 17
[2016-03-16] MEDS: LORAZEPAM 1 MG TAB GTB SCH (21:00)
[2016-03-16] MEDS: FENOFIBRATE 145 MG TAB GTB SCH (21:50)
[2016-03-17] MEDS: ALBUTEROL 0.083% (NEB) 2.5 MG/3 ML AMP HHN SCH ×4 (01:39→19:33)
[2016-03-17] MEDS: LANSOPRAZOLE 30 MG CAP GTB SCH (06:25)
[2016-03-17 08:04] VITALS: BP 109/56; RESP 18
[2016-03-17] MEDS: CEFEPIME 1GM/50 ML (PMX) 50 ML IVPB SCH ×2 (10:57→21:24)
[2016-03-17] MEDS: LEVETIRACETAM (100 MG/ML) 5ML CUP GTB SCH ×2 (10:57→21:24)
[2016-03-17] MEDS: ESCITALOPRAM 10 MG TAB GTB SCH (10:59)
[2016-03-17] MEDS: POTASSIUM CHLORIDE 20 MEQ POWDER FOR ORAL SOLN GTB SCH (10:59)
[2016-03-17] MEDS: FISH OIL 1,000 MG CAP PO SCH (10:59)
[2016-03-17] MEDS: SACCHAROMYCES BOULARDII 250 MG CAP GTB SCH ×2 (10:59→21:25)
[2016-03-17] MEDS: DICYCLOMINE 10 MG CAP GTB SCH ×2 (10:59→21:25)
[2016-03-17] MEDS: CHOLECALCIFEROL 2,000 UNIT CAP GTB SCH (10:59)
[2016-03-17] MEDS: BACLOFEN 10 MG TAB GTB SCH ×4 (11:00→21:24)
[2016-03-17] MEDS: ASPIRIN (EC) 81 MG TAB PO SCH (11:00)
[2016-03-17] MEDS: METHENAMINE 1 GM TAB GTB SCH ×2 (11:00→21:25)
[2016-03-17] MEDS: CHLORPROMAZINE 10 MG TAB GTB SCH ×2 (11:00→21:25)
[2016-03-17] MEDS: ENOXAPARIN 30 MG/0.3 ML SYG SC SCH ×2 (11:09→21:40)
--- NOTE | 2016-03-17 11:39 | PN ---
Date/Time of Note Date/Time of Note DATE: 03/17/16 TIME: 11:37 Assessment/Plan VTE Prophylaxis VTE Prophylaxis Intervention: LMWH Lines/Catheters IV Catheter Type (from Nrs): Saline Lock Urinary Cath still in place: Yes Reason Cath still needed: skin wounds contaminated by urine Assessment/Plan Chief Complaint/Hosp Course 1) hematuria, found to have kidney stones - IV antibiotics - urology to evaluate - seem to be improving 2) respiratory failure - appear to be stable at this point 3) MS - continue medications 4) seizure disorder - continue medications Problems: Subjective 24 Hr Interval Summary Free Text/Dictation Patient is doing ok, has no complaints Exam/Review of Systems Vital Signs Vitals Vital Signs Date Time Temp Pulse Resp B/P Pulse Ox O2 Delivery O2 Flow Rate FiO2 03/17/16 08:04 98.2 70 18 109/56 96 03/17/16 01:39 21 03/15/16 08:28 Nasal Cannula 2.0 Intake and Output 03/16/16 03/16/16 03/17/16 15:00 23:00 07:00 Intake Total 50 ml 950 ml Output Total 950 ml 600 ml Balance -900 ml 350 ml Exam Constitutional: well developed Head: atraumatic, normocephalic Neck: supple Respiratory: diminished breath sounds Cardiovascular: regular rate and rhythm Gastrointestinal: non-tender, soft Extremities: normal pulses Results Result Diagram: 03/15/16 0500 03/15/16 0500 Medications Medications Current Medications Cefepime HCl (Maxipime 1gm/50 ml (Pmx)) 50 ml @ 100 mls/hr Q12 IVPB Last administered on 03/17/16 10:57; Admin Dose 100 MLS/HR; Start 03/15/16 at 09:00 Enoxaparin Sodium (Lovenox) 30 mg BID SC Last administered on 03/17/16 11:09; Admin Dose 30 MG; Start 03/15/16 at 09:00 Morphine Sulfate (morphine) 2 mg Q4H PRN IV pain; Start 03/14/16 at 21:30 Aspirin (Halfprin) 81 mg DAILY PO Last administered on 03/17/16 11:00; Admin Dose 81 MG; Start 03/15/16 at 09:00 Baclofen (Lioresal) 20 mg QID GTB Last administered on 03/17/16 11:00; Admin Dose 20 MG; Start 03/15/16 at 09:00 Chlorpromazine (Thorazine) 10 mg BID GTB Last administered on 03/17/16 11:00; Admin Dose 10 MG; Start 03/15/16 at 09:00 Cholecalciferol (Vitamin D) 2,000 unit DAILY GTB Last administered on 03/17/16 10:59; Admin Dose 2,000 UNIT; Start 03/15/16 at 09:00 Dicyclomine HCl (Bentyl) 10 mg BID GTB Last administered on 03/17/16 10:59; Admin Dose 10 MG; Start 03/15/16 at 09:00 Diphenhydramine HCl (Benadryl) 25 mg DAILY PRN GTB ITCHING Last administered on 03/16/16 16:05; Admin Dose 25 MG; Start 03/14/16 at 21:30 Escitalopram Oxalate (Lexapro) 10 mg DAILY GTB Last administered on 03/17/16 10 :59; Admin Dose 10 MG; Start 03/15/16 at 09:00 Fenofibrate (Tricor) 145 mg QHS GTB Last administered on 03/16/16 21:50; Admin Dose 145 MG; Start 03/15/16 at 21:00 Lansoprazole (Prevacid) 30 mg DAILY@06 GTB Last administered on 03/17/16 06:25 ; Admin Dose 30 MG; Start 03/15/16 at 06:00 Lorazepam (Ativan) 1 mg HS GTB Last administered on 03/17/16 00:00; Admin Dose 1 MG; Start 03/15/16 at 00:00 Methenamine (Hiprex) 1 gm BID GTB Last administered on 03/17/16 11:00; Admin Dose 1 GM; Start 03/15/16 at 09:00 Fish Oil (Fish Oil) 1,000 mg DAILY PO Last administered on 03/17/16 10:59; Admin Dose 1,000 MG; Start 03/15/16 at 09:00 Saccharomyces Boulardii (Florastor) 250 mg BID GTB Last administered on 10:59; Admin Dose 250 MG; Start 03/15/16 at 09:00 Zolpidem Tartrate (Ambien) 5 mg QHS PRN GTB INSOMNIA; Start 03/14/16 at 21:30 Miscellaneous Information 40 mg MON,WED,FRI SQ ; Start 03/14/16 at 21:30; Status UNV Miscellaneous Information 1 tbs Q6 MM ; Start 03/15/16 at 00:00; Status UNV Levetiracetam (Keppra Liquid) 1,000 mg BID GTB Last administered on 03/17/16 10 :57; Admin Dose 1,000 MG; Start 03/15/16 at 09:00 Ondansetron HCl (Zofran Inj) 4 mg Q6H PRN IV NAUSEA AND/OR VOMITING; Start at 22:00 Potassium Chloride (Potassium Chloride Pwd/Soln) 20 meq DAILY GTB Last administered on 03/17/16 10:59; Admin Dose 20 MEQ; Start 03/15/16 at 09:00 RYAN MULLER Mar 17, 2016 11:39
--- NOTE | 2016-03-17 13:30 | PN ---
DATE: 03/17/2016 SUBJECTIVE: Urinary retention, urinary tract infection, right ureteral stone and bilateral kidney s tones. The patient himself has a history of neurogenic bladder secondary to multiple sclerosis and he does not complain of any pain. OBJECTIVE: The patient is afebrile. His temperature is 98.2, respiration is 18, pulse is 70, blood pressure 109/56. He did have a KUB that raised the possibility of a stone in the distal right ureter, and because of that, we did do a CT scan of the abdomen and pelvis, and the CT scan of the abdomen and pelvis indee d did show a 2 x 0.8 cm stone in the distal right ureter, and there are multiple bilateral nonobstru cting renal stones measuring up to 7 mm in the left kidney and 6 mm in the lower pole of the right k idney. The patient does also have gallstones without evidence of cholecystitis, mild prostatomegaly , gastrostomy tube in satisfactory position, and aortic calcifications and multifocal cortical scarr ing in the right kidney. The patient has pseudomonas and Providencia stuartii in his urine. MEDICATIONS: He is on includes cefepime. LABORATORY DATA: The CBC shows a white count of 6.3, hemoglobin 12.6, hematocrit 37.2. BUN is 12, creatinine 0.67. Electrolytes are normal. IMPRESSION: A 2 x 0.8 cm stone in the distal right ureter and there is a possible stone in the blad yaya. PLAN: To do a cystoscopy, right ureteroscopy, laser lithotripsy and insertion of a JJ stent. The p rocedure, the benefits, the risks and the complications were discussed with the patient, especially that this patient is bedridden with a tracheostomy and also a G tube in place and the infection that he has. He did understand that and he is agreeable to proceed. Dictated By: ARIAN CORTES/DORON Conf#: [id number] DID#: [id number]
[2016-03-17 20:13] VITALS: BP 110/58; RESP 18
[2016-03-17] MEDS: FENOFIBRATE 145 MG TAB GTB SCH (21:25)
[2016-03-17] MEDS: LORAZEPAM 1 MG TAB GTB SCH ×2 (23:03)
[2016-03-18] VITALS (24 sets, daily range): BP systolic 102–143; BP diastolic 55–72; PULSE 64–88; RESP 13–20
[2016-03-18] MEDS: ALBUTEROL 0.083% (NEB) 2.5 MG/3 ML AMP HHN SCH ×4 (01:01→19:52)
[2016-03-18] MEDS: LANSOPRAZOLE 30 MG CAP GTB SCH (06:00)
[2016-03-18] MEDS ORDERED: DEXAMETHASONE 4 MG/ML 1 ML INJ ONE (07:00)
[2016-03-18] MEDS ORDERED: ONDANSETRON 4 MG INJ ONE (07:00)
[2016-03-18] MEDS ORDERED: IOHEXOL 300MG/ML 30 ML BTL ONE (07:08)
[2016-03-18] MEDS ORDERED: LIDOCAINE 2% 20 ML UROJET SYRINGE ONE (07:17)
[2016-03-18] MEDS ORDERED: PROPOFOL 20 ML ONE (07:43)
[2016-03-18] MEDS ORDERED: MIDAZOLAM 1 MG/ML 2 ML INJ ONE ×2 (07:52→08:04)
[2016-03-18] MEDS ORDERED: PHENYLephrine (100 MCG/ML) 5ML SYG ONE (08:24)
[2016-03-18] MEDS: ENOXAPARIN 30 MG/0.3 ML SYG SC SCH ×2 (09:00→21:44)
[2016-03-18] MEDS ORDERED: EPHEDrine SULFATE 50 MG/5 ML SYG IV PRN (09:30)
[2016-03-18] MEDS ORDERED: FENTAnyl 50 MCG/ML VIAL IV PRN ×3 (09:30)
[2016-03-18] MEDS ORDERED: DIPHENHYDRAMINE 50 MG INJ IV PRN (09:30)
[2016-03-18] MEDS ORDERED: ONDANSETRON 4 MG INJ IV PRN (09:30)
[2016-03-18] MEDS ORDERED: morphine (1 MG/ML) 10ML SYRINGE IV PRN ×3 (09:30)
[2016-03-18] MEDS ORDERED: PROPOFOL 100 ML ONE (09:37)
[2016-03-18] MEDS: LEVETIRACETAM (100 MG/ML) 5ML CUP GTB SCH ×2 (11:31→21:30)
[2016-03-18] MEDS: DICYCLOMINE 10 MG CAP GTB SCH ×2 (11:32→21:30)
[2016-03-18] MEDS: ASPIRIN (EC) 81 MG TAB PO SCH (11:32)
[2016-03-18] MEDS: BACLOFEN 10 MG TAB GTB SCH ×4 (11:32→21:30)
[2016-03-18] MEDS: CHLORPROMAZINE 10 MG TAB GTB SCH ×2 (11:33→21:30)
[2016-03-18] MEDS: METHENAMINE 1 GM TAB GTB SCH ×2 (11:33→21:30)
[2016-03-18] MEDS: SACCHAROMYCES BOULARDII 250 MG CAP GTB SCH ×2 (11:33→21:29)
[2016-03-18] MEDS: FISH OIL 1,000 MG CAP PO SCH (11:33)
[2016-03-18] MEDS: CHOLECALCIFEROL 2,000 UNIT CAP GTB SCH (11:33)
[2016-03-18] MEDS: ESCITALOPRAM 10 MG TAB GTB SCH (11:33)
[2016-03-18] MEDS: POTASSIUM CHLORIDE 20 MEQ POWDER FOR ORAL SOLN GTB SCH (11:33)
[2016-03-18] MEDS: CEFEPIME 1GM/50 ML (PMX) 50 ML IVPB SCH ×2 (11:34→21:30)
--- NOTE | 2016-03-18 11:57 | PN ---
Date/Time of Note Date/Time of Note DATE: 03/18/16 TIME: 11:56 Assessment/Plan VTE Prophylaxis VTE Prophylaxis Intervention: LMWH Lines/Catheters IV Catheter Type (from Nrs): Peripheral IV Urinary Cath still in place: Yes Reason Cath still needed: skin wounds contaminated by urine Assessment/Plan Chief Complaint/Hosp Course 1) hematuria, found to have kidney stones - IV antibiotics - urology to evaluate - seem to be improving 2) respiratory failure - appear to be stable at this point 3) MS - continue medications 4) seizure disorder - continue medications Problems: Subjective 24 Hr Interval Summary Free Text/Dictation Patient just returned from procedure with Dr. Douglas. Exam/Review of Systems Vital Signs Vitals Vital Signs Date Time Temp Pulse Resp B/P Pulse Ox O2 Delivery O2 Flow Rate FiO2 03/18/16 11:11 98.2 71 18 121/61 94 Room Air 03/18/16 10:49 8.0 03/18/16 01:01 21 Intake and Output 03/17/16 03/17/16 03/18/16 15:00 23:00 07:00 Intake Total 50 ml 1270 ml Output Total 2000 ml Balance 50 ml -730 ml Exam Constitutional: well developed Head: atraumatic, normocephalic Neck: supple Respiratory: clear to auscultation Cardiovascular: regular rate and rhythm Gastrointestinal: non-tender, soft Extremities: normal pulses Results Result Diagram: 03/15/16 0500 03/15/16 0500 Medications Medications Current Medications Cefepime HCl (Maxipime 1gm/50 ml (Pmx)) 50 ml @ 100 mls/hr Q12 IVPB Last administered on 03/18/16 11:34; Admin Dose 100 MLS/HR; Start 03/15/16 at 09:00 Enoxaparin Sodium (Lovenox) 30 mg BID SC Last administered on 03/17/16 21:40; Admin Dose 30 MG; Start 03/15/16 at 09:00 Morphine Sulfate (morphine) 2 mg Q4H PRN IV pain; Start 03/14/16 at 21:30 Aspirin (Halfprin) 81 mg DAILY PO Last administered on 03/18/16 11:32; Admin Dose 81 MG; Start 03/15/16 at 09:00 Baclofen (Lioresal) 20 mg QID GTB Last administered on 03/18/16 11:32; Admin Dose 20 MG; Start 03/15/16 at 09:00 Chlorpromazine (Thorazine) 10 mg BID GTB Last administered on 03/18/16 11:33; Admin Dose 10 MG; Start 03/15/16 at 09:00 Cholecalciferol (Vitamin D) 2,000 unit DAILY GTB Last administered on 03/18/16 11:33; Admin Dose 2,000 UNIT; Start 03/15/16 at 09:00 Dicyclomine HCl (Bentyl) 10 mg BID GTB Last administered on 03/18/16 11:32; Admin Dose 10 MG; Start 03/15/16 at 09:00 Diphenhydramine HCl (Benadryl) 25 mg DAILY PRN GTB ITCHING Last administered on 03/16/16 16:05; Admin Dose 25 MG; Start 03/14/16 at 21:30 Escitalopram Oxalate (Lexapro) 10 mg DAILY GTB Last administered on 03/18/16 11 :33; Admin Dose 10 MG; Start 03/15/16 at 09:00 Fenofibrate (Tricor) 145 mg QHS GTB Last administered on 03/17/16 21:25; Admin Dose 145 MG; Start 03/15/16 at 21:00 Lansoprazole (Prevacid) 30 mg DAILY@06 GTB Last administered on 03/17/16 06:25 ; Admin Dose 30 MG; Start 03/15/16 at 06:00 Lorazepam (Ativan) 1 mg HS GTB Last administered on 03/17/16 23:03; Admin Dose 1 MG; Start 03/15/16 at 00:00 Methenamine (Hiprex) 1 gm BID GTB Last administered on 03/18/16 11:33; Admin Dose 1 GM; Start 03/15/16 at 09:00 Fish Oil (Fish Oil) 1,000 mg DAILY PO Last administered on 03/18/16 11:33; Admin Dose 1,000 MG; Start 03/15/16 at 09:00 Saccharomyces Boulardii (Florastor) 250 mg BID GTB Last administered on 11:33; Admin Dose 250 MG; Start 03/15/16 at 09:00 Zolpidem Tartrate (Ambien) 5 mg QHS PRN GTB INSOMNIA; Start 03/14/16 at 21:30 Miscellaneous Information 40 mg MON,WED,FRI SQ ; Start 03/14/16 at 21:30; Status UNV Miscellaneous Information 1 tbs Q6 MM ; Start 03/15/16 at 00:00; Status UNV Levetiracetam (Keppra Liquid) 1,000 mg BID GTB Last administered on 03/18/16 11 :31; Admin Dose 1,000 MG; Start 03/15/16 at 09:00 Ondansetron HCl (Zofran Inj) 4 mg Q6H PRN IV NAUSEA AND/OR VOMITING; Start at 22:00 Potassium Chloride (Potassium Chloride Pwd/Soln) 20 meq DAILY GTB Last administered on 03/18/16 11:33; Admin Dose 20 MEQ; Start 03/15/16 at 09:00 RYAN MULLER Mar 18, 2016 11:56
[2016-03-18] MEDS ORDERED: [UNRECOGNIZED DRUG - REMARK] XX SCH (14:30)
--- NOTE | 2016-03-18 14:46 | RADRPT ---
PROCEDURE: X-ray fluoroscopy guidance CLINICAL INDICATION: Cystoscopy fluoroscopic guidance. TECHNIQUE: Fluoroscopic guidance was utilized for an intraoperative procedure. COMPARISON: None available FINDINGS: Fluoroscopic guidance was utilized for and intraoperative procedure. 0.7 minutes of fluoroscopy ti me was utilized for the procedure. 7 intraoperative images obtained. IMPRESSION: 1. X-ray fluoroscopic guidance utilized for intraoperative procedure. RPTAT: PP Elvi Cordero Physician Date Time Electronically viewed and signed by Physician Alvarado on 03/18/2016 12:15 ABNER/
--- NOTE | 2016-03-18 17:05 | RADRPT ---
PROCEDURE: XR Abdomen. CLINICAL INDICATION: Abdomen pain. TECHNIQUE: AP supine abdomen x-ray. COMPARISON: 03/15/2016. FINDINGS: The bowel gas pattern is normal with no evidence of obstruction. There is a gastrostomy tube overlying the stomach. A right ureteral stent is present in satisfactor y position. Bilateral renal calculi are noted as seen previously. There are degenerative changes of the spine. IMPRESSION: 1. Gastrostomy tube overlying the stomach. 2. Right ureteral stent in satisfactory position. 3. Bilateral renal calculi as seen previously. 4. Degenerative changes of the spine. RPTAT: QQ .Jasen Spicer MD, MD Date Time Electronically viewed and signed by .Jasen Spicer MD, MD on 03/18/2016 17:05 .R/
--- NOTE | 2016-03-18 17:38 | OPR ---
DATE OF OPERATION: 03/18/2016 POSTOPERATIVE DIAGNOSIS: Distal right ureteral stone. OPERATION PERFORMED: Cystoscopy and right ureteroscopy, laser lithotripsy, and insertion of right u reteral JJ stent. POSTOPERATIVE DIAGNOSIS: Distal right ureteral stone. TECHNIQUE: The patient was brought to the operating room. He has a tracheostomy that was capped; t herefore, the anesthesiologist, with the help of the respiratory therapy team, removed the tracheost huma and put another one where he could inflate the balloon around it and then gave him general anest hesia. Then the patient was positioned in the lithotomy position, and his lower extremity were cont racted, but we managed to get him in the proper position. Then the genital area was prepped and josue ped in the usual sterile manner. Time out was done. The patient was identified by his name, the pro cedure, and the site of the procedure. As far as antibiotic, he was on antibiotic, and he was due t o have the antibiotic around 9:00, so we got the antibiotic and gave it to him at the time of the pr ocedure. Then I passed a #21 Maldivian cystoscope sheath under direct vision through the penile urethr a all the way to the bladder. Once in the bladder, the right ureteral orifice was identified and th en cannulated with a 5-Maldivian open-ended ureteral catheter. A Glidewire was passed all the way up t o the kidney, and then the open-ended was removed, leaving the Glidewire in. Then another Glidewire was passed through the second working channel and again passed all the way up to the kidney. Once the 2 Glidewires were up to the kidney, then at that moment, the scope was removed, leaving the [address] One Glidewire was used as a safety wire, and the other wire was used to advance the rigid ureteroscope on it. That was advanced all the way into the bladder and into the right ure ter, and I passed it, and the stone in the right ureter was visualized. Then the Glidewire was jayjay naomie, and the 365 micron laser fiber was passed into the working channel of the ureteroscope, and the stone was broken into numerous smaller pieces. Then I basketed these pieces with the 1.9 Maldivian 0- tip basket. I did have to, however, treat the stone multiple times because there were fragments tomeka t were larger and would not come out when basketed, so I had to dislodge them from the basket and tr eat them again with the holmium laser to break them into smaller pieces. Once all these were broken into small pieces, then all the pieces were basketed and dropped into the bladder. At the end, I r emoved the ureteroscope, and the ureter was clean from stone fragments. I then passed the cystoscop e and drained out all the stone fragments. Once the stone fragments were drained, then I removed th e cystoscope and reintroduced it this time on the safety wire, and then on the safety wire, I passed a 6-Maldivian x 22 cm long JJ stent. It had its proximal end curling into the kidney and the distal e nd curling into the bladder. The distal end is attached to a black string that was brought through the penile urethra all the way to the outside. Then I inserted an 18 Maldivian Brock catheter. I infl ated the balloon with 10 mL of sterile water and taped the string of the JJ stent on the Brock sandra ter so later on, in about 3, 4, or 5 days, we could take out the JJ stent without having to do a cys toscopy. The Brock catheter was then connected to a drainage bag, and the patient was transferred b [facility] to the recovery room in stable and satisfactory condition. Dictated By: ARIAN CORTES/DORON Conf#: [id number] DID#: [id number]
[2016-03-18] MEDS: FENOFIBRATE 145 MG TAB GTB SCH (21:30)
[2016-03-18] MEDS: LORAZEPAM 1 MG TAB GTB SCH (23:09)
[2016-03-19] MEDS: ALBUTEROL 0.083% (NEB) 2.5 MG/3 ML AMP HHN SCH ×5 (01:57→20:49)
[2016-03-19] MEDS: LANSOPRAZOLE 30 MG CAP GTB SCH (05:49)
[2016-03-19 08:06] VITALS: BP 109/71; RESP 18
[2016-03-19] MEDS: LEVETIRACETAM (100 MG/ML) 5ML CUP GTB SCH ×2 (08:38→21:12)
[2016-03-19] MEDS: SACCHAROMYCES BOULARDII 250 MG CAP GTB SCH ×2 (08:39→21:12)
[2016-03-19] MEDS: METHENAMINE 1 GM TAB GTB SCH ×2 (08:39→21:14)
[2016-03-19] MEDS: ASPIRIN (EC) 81 MG TAB PO SCH (08:39)
[2016-03-19] MEDS: DICYCLOMINE 10 MG CAP GTB SCH ×2 (08:39→21:11)
[2016-03-19] MEDS: ESCITALOPRAM 10 MG TAB GTB SCH (08:39)
[2016-03-19] MEDS: FISH OIL 1,000 MG CAP PO SCH (08:39)
[2016-03-19] MEDS: SOD CHLORIDE 0.9% 1,000 ML IV SCH ×3 (08:39→20:03)
[2016-03-19] MEDS: CHLORPROMAZINE 10 MG TAB GTB SCH ×2 (08:39→21:00)
[2016-03-19] MEDS: POTASSIUM CHLORIDE 20 MEQ POWDER FOR ORAL SOLN GTB SCH (08:39)
[2016-03-19] MEDS: BACLOFEN 10 MG TAB GTB SCH ×4 (08:39→21:13)
[2016-03-19] MEDS: CHOLECALCIFEROL 2,000 UNIT CAP GTB SCH (08:39)
[2016-03-19] MEDS: CEFEPIME 1GM/50 ML (PMX) 50 ML IVPB SCH ×2 (08:40→21:14)
[2016-03-19] MEDS: ENOXAPARIN 30 MG/0.3 ML SYG SC SCH (09:00)
--- NOTE | 2016-03-19 11:33 | PN ---
DATE: 03/19/2016 SUBJECTIVE: The patient is status post right ureteroscopy, laser lithotripsy and insertion of a JJ stent yesterday. The patient is comfortable. The urine is bloody dark old blood. The patient als o has multiple sclerosis and he does not feel much pain in the area of the bladder. OBJECTIVE VITAL SIGNS: Show temperature of 98.6, pulse is 82, respiration 18, blood pressure 109/71. ABDOMEN: Soft. There is no mass palpable. There is no tenderness. He does have the G-tube in shalonda ce. Brock catheter is draining bloody urine. It is dark old blood. The urine culture that he has had on March 18, no growth after 24 hours. PLAN: To give him some IV fluid, increase some water into his G-tube to hydrate him in an effort to flush the blood out of the catheter, and also hold on his Lovenox for the time being until the urin e is clear. Dictated By: ARIAN CORTES/DORON Conf#: [id number] DID#: [id number]
--- NOTE | 2016-03-19 12:08 | PN ---
Date/Time of Note Date/Time of Note DATE: 03/19/16 TIME: 12:07 Assessment/Plan VTE Prophylaxis VTE Prophylaxis Intervention: LMWH Lines/Catheters IV Catheter Type (from Nrs): Peripheral IV Urinary Cath still in place: Yes Reason Cath still needed: skin wounds contaminated by urine Assessment/Plan Chief Complaint/Hosp Course 1) hematuria, found to have kidney stones - IV antibiotics - urology to evaluate - seem to be improving 2) respiratory failure - appear to be stable at this point 3) MS - continue medications 4) seizure disorder - continue medications Problems: Subjective 24 Hr Interval Summary Free Text/Dictation Nurse notes redness around PEG, still has hematuria Exam/Review of Systems Vital Signs Vitals Vital Signs Date Time Temp Pulse Resp B/P Pulse Ox O2 Delivery O2 Flow Rate FiO2 03/19/16 08:18 96 21 03/19/16 08:18 76 20 03/19/16 08:06 98.6 109/71 03/18/16 11:40 Mask 03/18/16 11:20 5.0 Intake and Output 03/18/16 03/18/16 03/19/16 15:00 23:00 07:00 Intake Total 1420 ml 750 ml Output Total 0 ml 500 ml 800 ml Balance 1420 ml 250 ml -800 ml Exam skin on abdomen around PEG is slightly red but does not appear to have the signs of cellulitis at this time Constitutional: well developed Head: atraumatic, normocephalic Neck: supple Respiratory: clear to auscultation Cardiovascular: regular rate and rhythm Gastrointestinal: non-tender, soft Extremities: normal pulses Results Result Diagram: 03/15/16 0500 03/15/16 0500 Medications Medications Current Medications Cefepime HCl (Maxipime 1gm/50 ml (Pmx)) 50 ml @ 100 mls/hr Q12 IVPB Last administered on 03/19/16 08:40; Admin Dose 100 MLS/HR; Start 03/15/16 at 09:00 Enoxaparin Sodium (Lovenox) 30 mg BID SC Last administered on 03/18/16 21:44; Admin Dose 30 MG; Start 03/15/16 at 09:00 Morphine Sulfate (morphine) 2 mg Q4H PRN IV pain; Start 03/14/16 at 21:30 Aspirin (Halfprin) 81 mg DAILY PO Last administered on 03/19/16 08:39; Admin Dose 81 MG; Start 03/15/16 at 09:00 Baclofen (Lioresal) 20 mg QID GTB Last administered on 03/19/16 08:39; Admin Dose 20 MG; Start 03/15/16 at 09:00 Chlorpromazine (Thorazine) 10 mg BID GTB Last administered on 03/19/16 08:39; Admin Dose 10 MG; Start 03/15/16 at 09:00 Cholecalciferol (Vitamin D) 2,000 unit DAILY GTB Last administered on 03/19/16 08:39; Admin Dose 2,000 UNIT; Start 03/15/16 at 09:00 Dicyclomine HCl (Bentyl) 10 mg BID GTB Last administered on 03/19/16 08:39; Admin Dose 10 MG; Start 03/15/16 at 09:00 Diphenhydramine HCl (Benadryl) 25 mg DAILY PRN GTB ITCHING Last administered on 03/16/16 16:05; Admin Dose 25 MG; Start 03/14/16 at 21:30 Escitalopram Oxalate (Lexapro) 10 mg DAILY GTB Last administered on 03/19/16 08 :39; Admin Dose 10 MG; Start 03/15/16 at 09:00 Fenofibrate (Tricor) 145 mg QHS GTB Last administered on 03/18/16 21:30; Admin Dose 145 MG; Start 03/15/16 at 21:00 Lansoprazole (Prevacid) 30 mg DAILY@06 GTB Last administered on 03/19/16 05:49 ; Admin Dose 30 MG; Start 03/15/16 at 06:00 Lorazepam (Ativan) 1 mg HS GTB Last administered on 03/18/16 23:09; Admin Dose 1 MG; Start 03/15/16 at 00:00 Methenamine (Hiprex) 1 gm BID GTB Last administered on 03/19/16 08:39; Admin Dose 1 GM; Start 03/15/16 at 09:00 Fish Oil (Fish Oil) 1,000 mg DAILY PO Last administered on 03/19/16 08:39; Admin Dose 1,000 MG; Start 03/15/16 at 09:00 Saccharomyces Boulardii (Florastor) 250 mg BID GTB Last administered on 08:39; Admin Dose 250 MG; Start 03/15/16 at 09:00 Zolpidem Tartrate (Ambien) 5 mg QHS PRN GTB INSOMNIA; Start 03/14/16 at 21:30 Miscellaneous Information 1 tbs Q6 MM ; Start 03/15/16 at 00:00; Status UNV Levetiracetam (Keppra Liquid) 1,000 mg BID GTB Last administered on 03/19/16 08 :38; Admin Dose 1,000 MG; Start 03/15/16 at 09:00 Ondansetron HCl (Zofran Inj) 4 mg Q6H PRN IV NAUSEA AND/OR VOMITING; Start at 22:00 Potassium Chloride 20 meq 20 meq DAILY GTB Last administered on 03/19/16 08:39 ; Admin Dose 20 MEQ; Start 03/15/16 at 09:00 Sodium Chloride (NS) 1,000 ml @ 100 mls/hr Q10H IV Last administered on 08:39; Admin Dose 100 MLS/HR; Start 03/19/16 at 08:00; Stop 03/20/16 at 09:00 RYAN MULLER Mar 19, 2016 12:08
[2016-03-19 19:38] VITALS: BP 101/52; RESP 16
[2016-03-19] MEDS: LORAZEPAM 1 MG TAB GTB SCH (21:00)
[2016-03-19] MEDS: FENOFIBRATE 145 MG TAB GTB SCH (21:14)
[2016-03-20] MEDS: LORAZEPAM 1 MG TAB GTB SCH ×2 (00:26→23:06)
[2016-03-20] MEDS: ALBUTEROL 0.083% (NEB) 2.5 MG/3 ML AMP HHN SCH ×4 (01:27→20:04)
[2016-03-20 02:00] VITALS: BP 105/62; PULSE 74
[2016-03-20 05:47] LABS: POTASSIUM 3.5 mmol/L (3.5-5.1)
[2016-03-20 05:50] LABS: CREATININE 0.64 mg/dl (0.61-1.24)
[2016-03-20 05:50] LABS: BASOPHILS % 0.4 % (0.0-2.0); EOSINOPHILS # 0.3 10^3/ul (0.0-0.5); EOSINOPHILS % 4.7 % (0.0-7.0); HEMATOCRIT 32.2 % (42.0-52.0); LYMPHOCYTES # 1.2 10^3/ul (0.8-2.9); LYMPHOCYTES % 17.5 % (15.0-51.0); MEAN CORPUSCULAR HEMOGLOBIN 32.1 pg (29.0-33.0); MEAN CORPUSCULAR HGB CONC 34.1 g/dl (32.0-37.0); MEAN CORPUSCULAR VOLUME 94.1 fl (82.0-101.0); MEAN PLATELET VOLUME 10.5 fl (7.4-10.4); MONOCYTE # 0.7 10^3/ul (0.3-0.9); MONOCYTES % 9.7 % (0.0-11.0); NEUTROPHIL # 4.8 10^3/ul (1.6-7.5); NEUTROPHILS % 67.7 % (39.0-77.0); PLATELET COUNT 185 10^3/UL (140-440); RED BLOOD COUNT 3.42 10^6/ul (4.70-6.10); RED CELL DISTRIBUTION WIDTH 13.7 % (11.5-14.5); UNCORRECTED WBC 7.1 10^3/ul (4.8-10.8); WHITE BLOOD COUNT 7.1 10^3/ul (4.8-10.8)
[2016-03-20 05:51] LABS: CONDITION 1
[2016-03-20 05:51] LABS: CALCIUM 8.3 mg/dl (8.4-10.2)
[2016-03-20] MEDS: LANSOPRAZOLE 30 MG CAP GTB SCH (06:03)
[2016-03-20 07:20] VITALS: BP 107/57; RESP 18
[2016-03-20] MEDS: CHLORPROMAZINE 10 MG TAB GTB SCH ×2 (09:00→21:00)
--- NOTE | 2016-03-20 09:09 | PN ---
DATE: 03/20/2016 SUBJECTIVE: Gross hematuria, status post cystoscopy, right ureteroscopy, laser lithotripsy and jayjay belle of distal right ureteral stone. The patient himself is feeling comfortable and has no complaints . OBJECTIVE: VITAL SIGNS: His temperature is 98.1, pulse is 75, respirations are 18, blood pressure 107/57. ABDOMEN: Soft and the Brock catheter is draining bloody urine. 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 LABORATORY DATA: CBC shows a white count of 7.1, hemoglobin 11.0, hematocrit 32.2. BUN is 11, creat inine 0.64. Electrolytes are normal. The urine culture that was done on 03/18/2016 is reported no growth after 24 hours. We still need the final report on that. The patient is on cefepime and IV a ntibiotic and he is also getting some IV fluid to hydrate him well and also some extra fluid in the G-tube to try to make more urine and flush the blood out. He does have the JJ stent in place. PLAN: To keep him hydrated, continue his IV antibiotic, and once the urine is clear, then I will ta ke out the JJ stent. Dictated By: ARIAN CORTES/DORON Conf#: [id number] DID#: [id number]
[2016-03-20] MEDS: LEVETIRACETAM (100 MG/ML) 5ML CUP GTB SCH ×2 (09:57→21:39)
[2016-03-20] MEDS: CEFEPIME 1GM/50 ML (PMX) 50 ML IVPB SCH ×2 (09:57→21:39)
[2016-03-20] MEDS: BACLOFEN 10 MG TAB GTB SCH ×4 (09:58→21:39)
[2016-03-20] MEDS: METHENAMINE 1 GM TAB GTB SCH ×2 (09:58→21:38)
[2016-03-20] MEDS: FISH OIL 1,000 MG CAP PO SCH (09:58)
[2016-03-20] MEDS: SACCHAROMYCES BOULARDII 250 MG CAP GTB SCH ×2 (09:58→21:39)
[2016-03-20] MEDS: POTASSIUM CHLORIDE 20 MEQ POWDER FOR ORAL SOLN GTB SCH (09:59)
[2016-03-20] MEDS: ESCITALOPRAM 10 MG TAB GTB SCH (09:59)
[2016-03-20] MEDS: CHOLECALCIFEROL 2,000 UNIT CAP GTB SCH (09:59)
[2016-03-20] MEDS: ASPIRIN (EC) 81 MG TAB PO SCH (09:59)
[2016-03-20] MEDS: SOD CHLORIDE 0.9% 1,000 ML IV SCH ×3 (10:01→21:49)
[2016-03-20] MEDS: DICYCLOMINE 10 MG CAP GTB SCH ×2 (10:02→21:38)
--- NOTE | 2016-03-20 14:30 | PN ---
Date/Time of Note Date/Time of Note DATE: 03/20/16 TIME: 14:29 Assessment/Plan VTE Prophylaxis VTE Prophylaxis Intervention: LMWH Lines/Catheters [facility] IV Urinary Cath still in place: Yes Assessment/Plan Chief Complaint/Hosp Course 1) hematuria, found to have kidney stones - IV antibiotics - urology to evaluate - seem to be improving 2) respiratory failure - appear to be stable at this point 3) MS - continue medications 4) seizure disorder - continue medications Problems: Subjective 24 Hr Interval Summary Free Text/Dictation Patient denies dysuria but still have significant hematuria Exam/Review of Systems Vital Signs Vitals Vital Signs Date Time Temp Pulse Resp B/P Pulse Ox O2 Delivery O2 Flow Rate FiO2 03/20/16 13:13 69 20 96 21 03/20/16 07:20 98.1 107/57 03/18/16 11:40 Mask 03/18/16 11:20 5.0 Intake and Output 03/19/16 03/19/16 03/20/16 15:00 23:00 07:00 Intake Total 3600 ml 2700 ml Output Total 1700 ml 800 ml Balance 1900 ml 1900 ml Results Result Diagram: 03/20/16 0448 03/20/16 0445 Results 24 hrs Laboratory Tests Test 03/20/16 04:45 03/20/16 04:48 Anion Gap 14 Blood Urea Nitrogen 11 Calcium Level 8.3 L Carbon Dioxide Level 28 Chloride Level 106 Creatinine 0.64 Glucose Level 96 Potassium Level 3.5 Sodium Level 144 Basophils # 0.0 Basophils % 0.4 Blood Morphology Comment Eosinophils # 0.3 Eosinophils % 4.7 Hematocrit 32.2 L Hemoglobin 11.0 L Lymphocytes # 1.2 Lymphocytes % 17.5 Mean Corpuscular Hemoglobin 32.1 Mean Corpuscular Hemoglobin Concent 34.1 Mean Corpuscular Volume 94.1 Mean Platelet Volume 10.5 H Monocytes # 0.7 Monocytes % 9.7 Neutrophils # 4.8 Neutrophils % 67.7 Nucleated Red Blood Cells # 0.0 Nucleated Red Blood Cells % 0.0 Platelet Count 185 Red Blood Count 3.42 L Red Cell Distribution Width 13.7 White Blood Count 7.1 Medications Medications Current Medications Cefepime HCl (Maxipime 1gm/50 ml (Pmx)) 50 ml @ 100 mls/hr Q12 IVPB Last administered on 03/20/16 09:57; Admin Dose 100 MLS/HR; Start 03/15/16 at 09:00 Enoxaparin Sodium (Lovenox) 30 mg BID SC Last administered on 03/18/16 21:44; Admin Dose 30 MG; Start 03/15/16 at 09:00; Status Future Hold Morphine Sulfate (morphine) 2 mg Q4H PRN IV pain; Start 03/14/16 at 21:30 Aspirin (Halfprin) 81 mg DAILY PO Last administered on 03/20/16 09:59; Admin Dose 81 MG; Start 03/15/16 at 09:00 Baclofen (Lioresal) 20 mg QID GTB Last administered on 03/20/16 13:50; Admin Dose 20 MG; Start 03/15/16 at 09:00 Chlorpromazine (Thorazine) 10 mg BID GTB Last administered on 03/19/16 08:39; Admin Dose 10 MG; Start 03/15/16 at 09:00 Cholecalciferol (Vitamin D) 2,000 unit DAILY GTB Last administered on 03/20/16 09:59; Admin Dose 2,000 UNIT; Start 03/15/16 at 09:00 Dicyclomine HCl (Bentyl) 10 mg BID GTB Last administered on 03/20/16 10:02; Admin Dose 10 MG; Start 03/15/16 at 09:00 Diphenhydramine HCl (Benadryl) 25 mg DAILY PRN GTB ITCHING Last administered on 03/16/16 16:05; Admin Dose 25 MG; Start 03/14/16 at 21:30 Escitalopram Oxalate (Lexapro) 10 mg DAILY GTB Last administered on 03/20/16 09 :59; Admin Dose 10 MG; Start 03/15/16 at 09:00 Fenofibrate (Tricor) 145 mg QHS GTB Last administered on 03/19/16 21:14; Admin Dose 145 MG; Start 03/15/16 at 21:00 Lansoprazole (Prevacid) 30 mg DAILY@06 GTB Last administered on 03/20/16 06:03 ; Admin Dose 30 MG; Start 03/15/16 at 06:00 Lorazepam (Ativan) 1 mg HS GTB Last administered on 03/20/16 00:26; Admin Dose 1 MG; Start 03/15/16 at 00:00 Methenamine (Hiprex) 1 gm BID GTB Last administered on 03/20/16 09:58; Admin Dose 1 GM; Start 03/15/16 at 09:00 Fish Oil (Fish Oil) 1,000 mg DAILY PO Last administered on 03/20/16 09:58; Admin Dose 1,000 MG; Start 03/15/16 at 09:00 Saccharomyces Boulardii (Florastor) 250 mg BID GTB Last administered on 09:58; Admin Dose 250 MG; Start 03/15/16 at 09:00 Zolpidem Tartrate (Ambien) 5 mg QHS PRN GTB INSOMNIA; Start 03/14/16 at 21:30 Miscellaneous Information 1 tbs Q6 MM ; Start 03/15/16 at 00:00; Status UNV Levetiracetam (Keppra Liquid) 1,000 mg BID GTB Last administered on 03/20/16 09 :57; Admin Dose 1,000 MG; Start 03/15/16 at 09:00 Ondansetron HCl (Zofran Inj) 4 mg Q6H PRN IV NAUSEA AND/OR VOMITING; Start at 22:00 Potassium Chloride 20 meq 20 meq DAILY GTB Last administered on 03/20/16 09:59 ; Admin Dose 20 MEQ; Start 03/15/16 at 09:00 Sodium Chloride (NS) 1,000 ml @ 100 mls/hr Q10H IV Last administered on 10:01; Admin Dose 100 MLS/HR; Start 03/20/16 at 08:15 RYAN MULLER Mar 20, 2016 14:30
[2016-03-20 19:49] VITALS: BP 118/58; RESP 20
[2016-03-20] MEDS: FENOFIBRATE 145 MG TAB GTB SCH (21:38)
[2016-03-21] MEDS: ALBUTEROL 0.083% (NEB) 2.5 MG/3 ML AMP HHN SCH ×4 (01:14→19:30)
[2016-03-21] MEDS: SOD CHLORIDE 0.9% 1,000 ML IV SCH ×2 (04:15→16:18)
[2016-03-21] MEDS: LANSOPRAZOLE 30 MG CAP GTB SCH (06:14)
[2016-03-21 07:40] VITALS: BP 130/57; RESP 18
[2016-03-21] MEDS: CEFEPIME 1GM/50 ML (PMX) 50 ML IVPB SCH ×2 (10:00→21:27)
[2016-03-21] MEDS: LEVETIRACETAM (100 MG/ML) 5ML CUP GTB SCH ×2 (10:01→21:23)
[2016-03-21] MEDS: BACLOFEN 10 MG TAB GTB SCH ×4 (10:01→21:24)
[2016-03-21] MEDS: FISH OIL 1,000 MG CAP PO SCH (10:01)
[2016-03-21] MEDS: SACCHAROMYCES BOULARDII 250 MG CAP GTB SCH ×2 (10:01→21:26)
[2016-03-21] MEDS: DICYCLOMINE 10 MG CAP GTB SCH ×2 (10:02→21:26)
[2016-03-21] MEDS: ASPIRIN (EC) 81 MG TAB PO SCH (10:02)
[2016-03-21] MEDS: CHOLECALCIFEROL 2,000 UNIT CAP GTB SCH (10:02)
[2016-03-21] MEDS: ESCITALOPRAM 10 MG TAB GTB SCH (10:02)
[2016-03-21] MEDS: CHLORPROMAZINE 10 MG TAB GTB SCH ×2 (10:02→21:00)
[2016-03-21] MEDS: METHENAMINE 1 GM TAB GTB SCH ×2 (10:02→21:25)
[2016-03-21] MEDS: POTASSIUM CHLORIDE 20 MEQ POWDER FOR ORAL SOLN GTB SCH (10:02)
--- NOTE | 2016-03-21 11:28 | PN ---
Date/Time of Note Date/Time of Note DATE: 03/21/16 TIME: 11:28 Assessment/Plan VTE Prophylaxis VTE Prophylaxis Intervention: LMWH Lines/Catheters IV Catheter Type (from Nrsg): Peripheral IV Urinary Cath still in place: Yes Reason Cath still needed: skin wounds contaminated by urine Assessment/Plan Chief Complaint/Hosp Course 1) hematuria, found to have kidney stones - IV antibiotics - urology to evaluate - seem to be improving 2) respiratory failure - appear to be stable at this point 3) MS - continue medications 4) seizure disorder - continue medications Problems: Subjective 24 Hr Interval Summary Free Text/Dictation Patient is feeling ok, still has hematuria Exam/Review of Systems Vital Signs Vitals Vital Signs Date Time Temp Pulse Resp B/P Pulse Ox O2 Delivery O2 Flow Rate FiO2 03/21/16 08:27 78 16 93 21 03/21/16 07:40 98.5 130/57 03/18/16 11:40 Mask 03/18/16 11:20 5.0 Intake and Output 03/20/16 03/20/16 03/21/16 15:00 23:00 07:00 Intake Total 1300 ml 1900 ml Output Total 2450 ml 1000 ml Balance -1150 ml 900 ml Exam Constitutional: well developed Head: atraumatic, normocephalic Neck: supple Respiratory: clear to auscultation Cardiovascular: regular rate and rhythm Gastrointestinal: non-tender, soft Extremities: normal pulses Results Result Diagram: 03/20/168 03/20/16444 Medications Medications Current Medications Cefepime HCl (Maxipime 1gm/50 ml (Pmx)) 50 ml @ 100 mls/hr Q12 IVPB Last administered on 03/21/16 10:00; Admin Dose 100 MLS/HR; Start 03/15/16 at 09:00 Enoxaparin Sodium (Lovenox) 30 mg BID SC Last administered on 03/18/16 21:44; Admin Dose 30 MG; Start 03/15/16 at 09:00; Status Future Hold Morphine Sulfate (morphine) 2 mg Q4H PRN IV pain; Start 03/14/16 at 21:30 Aspirin (Halfprin) 81 mg DAILY PO Last administered on 03/21/16 10:02; Admin Dose 81 MG; Start 03/15/16 at 09:00 Baclofen (Lioresal) 20 mg QID GTB Last administered on 03/21/16 10:01; Admin Dose 20 MG; Start 03/15/16 at 09:00 Chlorpromazine (Thorazine) 10 mg BID GTB Last administered on 03/19/16 08:39; Admin Dose 10 MG; Start 03/15/16 at 09:00 Cholecalciferol (Vitamin D) 2,000 unit DAILY GTB Last administered on 03/21/16 10:02; Admin Dose 2,000 UNIT; Start 03/15/16 at 09:00 Dicyclomine HCl (Bentyl) 10 mg BID GTB Last administered on 03/21/16 10:02; Admin Dose 10 MG; Start 03/15/16 at 09:00 Diphenhydramine HCl (Benadryl) 25 mg DAILY PRN GTB ITCHING Last administered on 03/16/16 16:05; Admin Dose 25 MG; Start 03/14/16 at 21:30 Escitalopram Oxalate (Lexapro) 10 mg DAILY GTB Last administered on 03/21/16 10 :02; Admin Dose 10 MG; Start 03/15/16 at 09:00 Fenofibrate (Tricor) 145 mg QHS GTB Last administered on 03/20/16 21:38; Admin Dose 145 MG; Start 03/15/16 at 21:00 Lansoprazole (Prevacid) 30 mg DAILY@06 GTB Last administered on 03/21/16 06:14 ; Admin Dose 30 MG; Start 03/15/16 at 06:00 Lorazepam (Ativan) 1 mg HS GTB Last administered on 03/20/16 23:06; Admin Dose 1 MG; Start 03/15/16 at 00:00 Methenamine (Hiprex) 1 gm BID GTB Last administered on 03/21/16 10:02; Admin Dose 1 GM; Start 03/15/16 at 09:00 Fish Oil (Fish Oil) 1,000 mg DAILY PO Last administered on 03/21/16 10:01; Admin Dose 1,000 MG; Start 03/15/16 at 09:00 Saccharomyces Boulardii (Florastor) 250 mg BID GTB Last administered on 10:01; Admin Dose 250 MG; Start 03/15/16 at 09:00 Zolpidem Tartrate (Ambien) 5 mg QHS PRN GTB INSOMNIA; Start 03/14/16 at 21:30 Miscellaneous Information 1 tbs Q6 MM ; Start 03/15/16 at 00:00; Status UNV Levetiracetam (Keppra Liquid) 1,000 mg BID GTB Last administered on 03/21/16 10 :01; Admin Dose 1,000 MG; Start 03/15/16 at 09:00 Ondansetron HCl (Zofran Inj) 4 mg Q6H PRN IV NAUSEA AND/OR VOMITING; Start at 22:00 Potassium Chloride 20 meq 20 meq DAILY GTB Last administered on 03/21/16 10:02 ; Admin Dose 20 MEQ; Start 03/15/16 at 09:00 Sodium Chloride (NS) 1,000 ml @ 100 mls/hr Q10H IV Last administered on 21:49; Admin Dose 100 MLS/HR; Start 03/20/16 at 08:15 RYAN MULLER Mar 21, 2016 11:28
[2016-03-21 20:04] VITALS: BP 108/54; RESP 18
--- NOTE | 2016-03-21 20:41 | PN ---
DATE: 03/21/2016 SUBJECTIVE: The patient is status post right ureteroscopy and laser lithotripsy to a large distal r ight ureteral stone and insertion of a JJ stent. Patient has gross hematuria. The patient himself is comfortable and denies having any pain. He does have a history of multiple sclerosis, and neurog enic bladder, and urinary retention, and has had urinary tract infections in the past, and bladder s tones as well. OBJECTIVE VITAL SIGNS: His temperature today is 98.5, respirations 18, blood pressure is 130/57, pulse is 80. ABDOMEN: Brock catheter is draining more clear urine today. If not bloody as it was yesterday, but it has still some stains in it of blood. LABORATORY DATA: Urine culture showed no growth after 48 hours. The CBC from yesterday shows a whi te count of 7.1, hemoglobin 11.2, hematocrit 32.2. BUN is 11, creatinine 0.64. Electrolytes are no rmal. IMPRESSION: Gross hematuria that has cleared, status post right ureteroscopy, laser lithotripsy, an d removal of right ureteral stone and insertion of a JJ stent. PLAN: To watch him today, keep him hydrated, and tomorrow if the urine remains clear, then I will t jennifer the JJ stent out and keep the Brock catheter in place. Dictated By: ARIAN CORTES/DORON Conf#: [id number] DID#: [id number]
[2016-03-21] MEDS: FENOFIBRATE 145 MG TAB GTB SCH (21:23)
[2016-03-21] MEDS: LORAZEPAM 1 MG TAB GTB SCH (23:17)
[2016-03-22] MEDS: ALBUTEROL 0.083% (NEB) 2.5 MG/3 ML AMP HHN SCH ×4 (02:07→19:41)
[2016-03-22] MEDS: LANSOPRAZOLE 30 MG CAP GTB SCH (06:06)
[2016-03-22 07:35] VITALS: BP 130/59; RESP 17
[2016-03-22] MEDS: CHLORPROMAZINE 10 MG TAB GTB SCH ×2 (09:00→21:19)
[2016-03-22] MEDS: ESCITALOPRAM 10 MG TAB GTB SCH (09:18)
[2016-03-22] MEDS: CHOLECALCIFEROL 2,000 UNIT CAP GTB SCH (09:18)
[2016-03-22] MEDS: BACLOFEN 10 MG TAB GTB SCH ×4 (09:18→21:20)
[2016-03-22] MEDS: FISH OIL 1,000 MG CAP PO SCH (09:18)
[2016-03-22] MEDS: LEVETIRACETAM (100 MG/ML) 5ML CUP GTB SCH ×2 (09:18→21:20)
[2016-03-22] MEDS: ASPIRIN (EC) 81 MG TAB PO SCH (09:19)
[2016-03-22] MEDS: SACCHAROMYCES BOULARDII 250 MG CAP GTB SCH ×2 (09:19→21:19)
[2016-03-22] MEDS: METHENAMINE 1 GM TAB GTB SCH ×2 (09:19→21:19)
[2016-03-22] MEDS: POTASSIUM CHLORIDE 20 MEQ POWDER FOR ORAL SOLN GTB SCH (09:20)
[2016-03-22] MEDS: DICYCLOMINE 10 MG CAP GTB SCH ×2 (09:20→21:19)
[2016-03-22] MEDS: SOD CHLORIDE 0.9% 1,000 ML IV SCH ×2 (09:22→12:41)
[2016-03-22] MEDS: CEFEPIME 1GM/50 ML (PMX) 50 ML IVPB SCH ×2 (09:30→21:20)
--- NOTE | 2016-03-22 11:16 | PN ---
Date/Time of Note Date/Time of Note DATE: 03/22/16 TIME: 11:16 Assessment/Plan VTE Prophylaxis VTE Prophylaxis Intervention: LMWH Lines/Catheters IV Catheter Type (from Nrsg): Peripheral IV Urinary Cath still in place: Yes Reason Cath still needed: skin wounds contaminated by urine Assessment/Plan Chief Complaint/Hosp Course 1) hematuria, found to have kidney stones - IV antibiotics - urology to evaluate - seem to be improving 2) respiratory failure - appear to be stable at this point 3) MS - continue medications 4) seizure disorder - continue medications Problems: Subjective 24 Hr Interval Summary Free Text/Dictation Patient has no complaints, hematuria is improved Exam/Review of Systems Vital Signs Vitals Vital Signs Date Time Temp Pulse Resp B/P Pulse Ox O2 Delivery O2 Flow Rate FiO2 03/22/16 09:03 96 21 03/22/16 08:56 66 18 03/22/16 07:35 97.7 130/59 03/18/16 11:40 Mask 03/18/16 11:20 5.0 Intake and Output 03/21/16 03/21/16 03/22/16 15:00 23:00 07:00 Intake Total 850 ml 230 ml Output Total 1700 ml Balance -850 ml 230 ml Exam Head: atraumatic, normocephalic Neck: supple Respiratory: clear to auscultation Cardiovascular: regular rate and rhythm Gastrointestinal: non-tender, soft Results Result Diagram: 03/20/16 0448 03/20/16 0445 Medications Medications Current Medications Cefepime HCl (Maxipime 1gm/50 ml (Pmx)) 50 ml @ 100 mls/hr Q12 IVPB Last administered on 03/22/16 09:30; Admin Dose 100 MLS/HR; Start 03/15/16 at 09:00 Enoxaparin Sodium (Lovenox) 30 mg BID SC Last administered on 03/18/16 21:44; Admin Dose 30 MG; Start 03/15/16 at 09:00; Status Future Hold Morphine Sulfate (morphine) 2 mg Q4H PRN IV pain; Start 03/14/16 at 21:30 Aspirin (Halfprin) 81 mg DAILY PO Last administered on 03/22/16 09:19; Admin Dose 81 MG; Start 03/15/16 at 09:00 Baclofen (Lioresal) 20 mg QID GTB Last administered on 03/22/16 09:18; Admin Dose 20 MG; Start 03/15/16 at 09:00 Chlorpromazine (Thorazine) 10 mg BID GTB Last administered on 03/19/16 08:39; Admin Dose 10 MG; Start 03/15/16 at 09:00 Cholecalciferol (Vitamin D) 2,000 unit DAILY GTB Last administered on 03/22/16 09:18; Admin Dose 2,000 UNIT; Start 03/15/16 at 09:00 Dicyclomine HCl (Bentyl) 10 mg BID GTB Last administered on 03/22/16 09:20; Admin Dose 10 MG; Start 03/15/16 at 09:00 Diphenhydramine HCl (Benadryl) 25 mg DAILY PRN GTB ITCHING Last administered on 03/16/16 16:05; Admin Dose 25 MG; Start 03/14/16 at 21:30 Escitalopram Oxalate (Lexapro) 10 mg DAILY GTB Last administered on 03/22/16 09 :18; Admin Dose 10 MG; Start 03/15/16 at 09:00 Fenofibrate (Tricor) 145 mg QHS GTB Last administered on 03/21/16 21:23; Admin Dose 145 MG; Start 03/15/16 at 21:00 Lansoprazole (Prevacid) 30 mg DAILY@06 GTB Last administered on 03/22/16 06:06 ; Admin Dose 30 MG; Start 03/15/16 at 06:00 Lorazepam (Ativan) 1 mg HS GTB Last administered on 03/21/16 23:17; Admin Dose 1 MG; Start 03/15/16 at 00:00 Methenamine (Hiprex) 1 gm BID GTB Last administered on 03/22/16 09:19; Admin Dose 1 GM; Start 03/15/16 at 09:00 Fish Oil (Fish Oil) 1,000 mg DAILY PO Last administered on 03/22/16 09:18; Admin Dose 1,000 MG; Start 03/15/16 at 09:00 Saccharomyces Boulardii (Florastor) 250 mg BID GTB Last administered on 09:19; Admin Dose 250 MG; Start 03/15/16 at 09:00 Zolpidem Tartrate (Ambien) 5 mg QHS PRN GTB INSOMNIA; Start 03/14/16 at 21:30 Miscellaneous Information 1 tbs Q6 MM ; Start 03/15/16 at 00:00; Status UNV Levetiracetam (Keppra Liquid) 1,000 mg BID GTB Last administered on 03/22/16 09 :18; Admin Dose 1,000 MG; Start 03/15/16 at 09:00 Ondansetron HCl (Zofran Inj) 4 mg Q6H PRN IV NAUSEA AND/OR VOMITING; Start at 22:00 Potassium Chloride 20 meq 20 meq DAILY GTB Last administered on 03/22/16 09:20 ; Admin Dose 20 MEQ; Start 03/15/16 at 09:00 Sodium Chloride (NS) 1,000 ml @ 50 mls/hr Q20H IV Last administered on 16:18; Admin Dose 50 MLS/HR; Start 03/20/16 at 08:15 RYAN MULLER Mar 22, 2016 11:16
--- NOTE | 2016-03-22 18:18 | PN ---
DATE: 03/22/2016 SUBJECTIVE: The patient is status post right ureteroscopy, laser lithotripsy and insertion of a JJ stent. The patient had gross hematuria and he does have a history of multiple sclerosis, neurogenic bladder, urinary retention and urinary tract infection. The patient has been hydrated and the urin e has gradually cleared and the patient has no pain and he is tolerating his diet well. OBJECTIVE VITAL SIGNS: His temperature is 97.7, pulse 74, respiration is 17, blood pressure 130/59. ABDOMEN: Soft. The Brock catheter is draining clear urine with the string of the JJ stent taped on to it. IMPRESSION: Improving and clearing hematuria status post right ureteroscopy, removal of right urete ral stone and insertion of a JJ stent. PLAN: To remove the JJ stent, indeed I did go ahead and separate the string of the JJ stent from the Brock catheter that he has and then pulled it out and it came out intact and the patient had no cecelia n. Plan is that from a urological standpoint if his vitals are normal and he is afebrile he may be discharged back to the intermediate facility tomorrow. Dictated By: ARIAN CORTES/DORON Conf#: [id number] DID#: [id number]
[2016-03-22 19:29] VITALS: BP 130/73; RESP 18
[2016-03-22] MEDS: LORAZEPAM 1 MG TAB GTB SCH (21:19)
[2016-03-22] MEDS: FENOFIBRATE 145 MG TAB GTB SCH (21:19)
[2016-03-23] MEDS: ALBUTEROL 0.083% (NEB) 2.5 MG/3 ML AMP HHN SCH ×4 (01:15→20:40)
[2016-03-23] MEDS: LANSOPRAZOLE 30 MG CAP GTB SCH (05:29)
[2016-03-23 06:25] LABS: BASOPHILS % 0.3 % (0.0-2.0); EOSINOPHILS # 0.4 10^3/ul (0.0-0.5); EOSINOPHILS % 4.2 % (0.0-7.0); HEMATOCRIT 36.7 % (42.0-52.0); HEMOGLOBIN 12.3 g/dl (14.0-18.0); LYMPHOCYTES # 1.4 10^3/ul (0.8-2.9); LYMPHOCYTES % 14.3 % (15.0-51.0); MEAN CORPUSCULAR HEMOGLOBIN 31.6 pg (29.0-33.0); MEAN CORPUSCULAR HGB CONC 33.5 g/dl (32.0-37.0); MEAN CORPUSCULAR VOLUME 94.3 fl (82.0-101.0); MEAN PLATELET VOLUME 11.4 fl (7.4-10.4); MONOCYTE # 0.7 10^3/ul (0.3-0.9); MONOCYTES % 6.9 % (0.0-11.0); NEUTROPHIL # 7.3 10^3/ul (1.6-7.5); NEUTROPHILS % 74.3 % (39.0-77.0); PLATELET COUNT 234 10^3/UL (140-440); RED CELL DISTRIBUTION WIDTH 13.3 % (11.5-14.5); UNCORRECTED WBC 9.8 10^3/ul (4.8-10.8); WHITE BLOOD COUNT 9.8 10^3/ul (4.8-10.8)
[2016-03-23 06:28] LABS: CONDITION 1
[2016-03-23 06:40] LABS: POTASSIUM 4.1 mmol/L (3.5-5.1)
[2016-03-23 06:43] LABS: CREATININE 0.73 mg/dl (0.61-1.24)
[2016-03-23 07:57] VITALS: BP 144/66; RESP 18
[2016-03-23] MEDS: CHLORPROMAZINE 10 MG TAB GTB SCH ×2 (09:00→21:00)
[2016-03-23] MEDS: FISH OIL 1,000 MG CAP PO SCH (09:03)
[2016-03-23] MEDS: SACCHAROMYCES BOULARDII 250 MG CAP GTB SCH ×2 (09:03→21:14)
[2016-03-23] MEDS: LEVETIRACETAM (100 MG/ML) 5ML CUP GTB SCH ×2 (09:03→21:14)
[2016-03-23] MEDS: ESCITALOPRAM 10 MG TAB GTB SCH (09:03)
[2016-03-23] MEDS: ASPIRIN (EC) 81 MG TAB PO SCH (09:03)
[2016-03-23] MEDS: CHOLECALCIFEROL 2,000 UNIT CAP GTB SCH (09:04)
[2016-03-23] MEDS: DICYCLOMINE 10 MG CAP GTB SCH ×2 (09:04→21:14)
[2016-03-23] MEDS: BACLOFEN 10 MG TAB GTB SCH ×4 (09:04→21:14)
[2016-03-23] MEDS: POTASSIUM CHLORIDE 20 MEQ POWDER FOR ORAL SOLN GTB SCH (09:05)
[2016-03-23] MEDS: SOD CHLORIDE 0.9% 1,000 ML IV SCH (09:17)
[2016-03-23] MEDS: CEFEPIME 1GM/50 ML (PMX) 50 ML IVPB SCH ×2 (09:17→21:13)
[2016-03-23] MEDS: METHENAMINE 1 GM TAB GTB SCH ×2 (09:17→21:14)
--- NOTE | 2016-03-23 17:52 | PN ---
DATE: 03/23/2016 SUBJECTIVE: Follow up on 65-year-old gentleman with advanced multiple sclerosis, tracheostomy and G -tube, cystitis. The patient is status post removal of JJ stent by Dr. Douglas, continues to have h ematuria. The patient denies any fever, chills, denies nausea, vomiting. OBJECTIVE: VITAL SIGNS: Temperature is 98.0, pulse is 85, blood pressure 144/66, respiratory rate 18, oxygen s aturation 93% on 21% FIO2. GENERAL: Well-developed, well-nourished male in no acute disease. HEENT: Head is atraumatic, normocephalic. PERRLA. NECK: Supple. Tracheostomy is in place. LUNGS: Scattered rhonchi bilaterally. HEART: Normal S1, S2. No murmurs, gallops, clicks, rubs noted. ABDOMEN: Round, soft, nondistended, nontender. G-tube present. EXTREMITIES: No edema, clubbing, cyanosis. Pulses equal bilaterally 2+. SKIN: There is no rash, petechiae noted. NEUROLOGIC: Patient is awake, alert and oriented x3. LABORATORY AND DIAGNOSTIC DATA FOR TODAY: CBC: White blood cells 9.8, hemoglobin 12.3, hematocrit 36.7, platelets 234. Chemistry: Sodium is 143, potassium 4.1, chloride 103, carbon dioxide 26, ani on gap 18, BUN is 16, creatinine 0.73, glucose 91, calcium 9.0. ASSESSMENT AND PLAN: 1. Acute cystitis, continue patient on cefepime. 2. Kidney stones, status post cystoscopy and right ureteroscopy, laser lithotripsy and insertion of right ureteral JJ stent and subsequent removal of JJ stent. The patient is followed by Dr. Douglas in urology consultation. Continues to have mild hematuria. Continue to monitor. Continue IV fluid s. Monitor hemoglobin and hematocrit. 3. Advanced multiple sclerosis. Continue Bentyl. 4. Hyperlipidemia. Continue Tricor. 5. Chronic respiratory failure with tracheostomy. Continue breathing treatment and oxygen suppleme ntation. 6. Dysphagia with G-tube. Continue aspiration precaution. Continue G-tube feeding, monitor residu al. We will continue sequential compression device for deep venous thrombosis prophylaxis and Prevacid f or peptic ulcer disease prophylaxis. Further recommendations based on clinical course. Plan of car e discussed with Dr. Brown. Dictated By: TAYA PATINO WET MIXER for IGNACIO BROWN MD SR/NTS Conf#: [id number] DID#: [id number]
[2016-03-23 20:10] VITALS: BP 122/66; RESP 18
[2016-03-23] MEDS: FENOFIBRATE 145 MG TAB GTB SCH (21:14)
[2016-03-23] MEDS: LORAZEPAM 1 MG TAB GTB SCH (21:15)
[2016-03-24] MEDS: ALBUTEROL 0.083% (NEB) 2.5 MG/3 ML AMP HHN SCH ×4 (02:09→19:31)
[2016-03-24] MEDS: SOD CHLORIDE 0.9% 1,000 ML IV SCH (05:16)
[2016-03-24] MEDS: LANSOPRAZOLE 30 MG CAP GTB SCH (05:16)
[2016-03-24 06:01] LABS: POTASSIUM 3.9 mmol/L (3.5-5.1)
[2016-03-24 06:03] LABS: CREATININE 0.76 mg/dl (0.61-1.24)
[2016-03-24 06:04] LABS: CALCIUM 9.6 mg/dl (8.4-10.2)
[2016-03-24 07:08] LABS: BASOPHILS % 0.4 % (0.0-2.0); EOSINOPHILS # 0.4 10^3/ul (0.0-0.5); EOSINOPHILS % 3.5 % (0.0-7.0); HEMATOCRIT 37.1 % (42.0-52.0); HEMOGLOBIN 12.5 g/dl (14.0-18.0); LYMPHOCYTES # 1.5 10^3/ul (0.8-2.9); LYMPHOCYTES % 14.6 % (15.0-51.0); MEAN CORPUSCULAR HEMOGLOBIN 32.1 pg (29.0-33.0); MEAN CORPUSCULAR HGB CONC 33.7 g/dl (32.0-37.0); MEAN CORPUSCULAR VOLUME 95.2 fl (82.0-101.0); MEAN PLATELET VOLUME 11.8 fl (7.4-10.4); MONOCYTE # 0.7 10^3/ul (0.3-0.9); MONOCYTES % 6.6 % (0.0-11.0); NEUTROPHIL # 7.6 10^3/ul (1.6-7.5); NEUTROPHILS % 74.9 % (39.0-77.0); PLATELET COUNT 227 10^3/UL (140-440); RED CELL DISTRIBUTION WIDTH 13.4 % (11.5-14.5); UNCORRECTED WBC 10.2 10^3/ul (4.8-10.8); WHITE BLOOD COUNT 10.2 10^3/ul (4.8-10.8)
[2016-03-24 07:15] LABS: CONDITION 1
[2016-03-24 08:44] VITALS: BP 112/58; RESP 20
[2016-03-24] MEDS: CHLORPROMAZINE 10 MG TAB GTB SCH ×2 (09:00→22:22)
[2016-03-24] MEDS: LEVETIRACETAM (100 MG/ML) 5ML CUP GTB SCH ×2 (09:25→22:22)
[2016-03-24] MEDS: CEFEPIME 1GM/50 ML (PMX) 50 ML IVPB SCH ×2 (09:25→22:21)
[2016-03-24] MEDS: POTASSIUM CHLORIDE 20 MEQ POWDER FOR ORAL SOLN GTB SCH (09:26)
[2016-03-24] MEDS: BACLOFEN 10 MG TAB GTB SCH ×4 (09:26→22:23)
[2016-03-24] MEDS: FISH OIL 1,000 MG CAP PO SCH (09:26)
[2016-03-24] MEDS: ESCITALOPRAM 10 MG TAB GTB SCH (09:26)
[2016-03-24] MEDS: CHOLECALCIFEROL 2,000 UNIT CAP GTB SCH (09:26)
[2016-03-24] MEDS: DICYCLOMINE 10 MG CAP GTB SCH ×2 (09:26→22:22)
[2016-03-24] MEDS: METHENAMINE 1 GM TAB GTB SCH ×2 (09:26→22:23)
[2016-03-24] MEDS: ASPIRIN (EC) 81 MG TAB PO SCH (09:27)
[2016-03-24] MEDS: SACCHAROMYCES BOULARDII 250 MG CAP GTB SCH ×2 (09:28→22:22)
--- NOTE | 2016-03-24 17:46 | PN ---
Date/Time of Note Date/Time of Note DATE: 03/24/16 TIME: 17:44 Assessment/Plan VTE Prophylaxis VTE Prophylaxis Intervention: SCD's Lines/Catheters IV [facility]ter Type (from [facility]): Peripheral IV Urinary Cath still in place: Yes Reason Cath still needed: urinary retention Assessment/Plan Chief Complaint/Hosp Course ASSESSMENT AND PLAN: 1. Acute cystitis, continue patient on cefepime. 2. Kidney stones, status post cystoscopy and right ureteroscopy, laser lithotripsy and insertion of right ureteral JJ stent and subsequent removal of JJ stent. The patient is followed by Dr. Douglas in urology consultation. Continues to have mild hematuria. Continue to monitor. Continue IV fluids. Monitor hemoglobin and hematocrit. 3. Advanced multiple sclerosis. Continue Bentyl. 4. Hyperlipidemia. Continue Tricor. 5. Chronic respiratory failure with tracheostomy. Continue breathing treatment and oxygen supplementation. 6. Dysphagia with G-tube. Continue aspiration precaution. Continue G-tube feeding, monitor residual. Continue sequential compression device for deep venous thrombosis prophylaxis and Prevacid for peptic ulcer disease prophylaxis. Further recommendations based on clinical course. Plan of care discussed with Dr. Brown. Problems: Subjective 24 Hr Interval Summary Free Text/Dictation Patient continues to have mild hematuria however improved compared to yesterday. Exam/Review of Systems Vital Signs Vitals Vital Signs Date Time Temp Pulse Resp B/P Pulse Ox O2 Delivery O2 Flow Rate FiO2 03/24/16 14:36 77 20 94 21 03/24/16 08:44 97.8 112/58 Intake and Output 03/23/16 03/23/16 03/24/16 15:00 23:00 07:00 Intake Total 700 ml 400 ml Output Total 900 ml 1000 ml Balance -200 ml -600 ml Exam GENERAL: Well-developed, well-nourished male in no acute disease. HEENT: Head is atraumatic, normocephalic. PERRLA. NECK: Supple. Tracheostomy is in place. LUNGS: Scattered rhonchi bilaterally. HEART: Normal S1, S2. No murmurs, gallops, clicks, rubs noted. ABDOMEN: Round, soft, nondistended, nontender. G-tube present. EXTREMITIES: No edema, clubbing, cyanosis. Pulses equal bilaterally 2+. SKIN: There is no rash, petechiae noted. NEUROLOGIC: Patient is awake, alert and oriented x3. Results Result Diagram: 03/24/16 0507 03/24/16 0507 Results 24 hrs Laboratory Tests Test 03/24/16 05:07 Anion Gap 17 H Basophils # 0.0 Basophils % 0.4 Blood Morphology Comment Blood Urea Nitrogen 18 Calcium Level 9.6 Carbon Dioxide Level 30 Chloride Level 104 Creatinine 0.76 Eosinophils # 0.4 Eosinophils % 3.5 Glucose Level 100 Hematocrit 37.1 L Hemoglobin 12.5 L Lymphocytes # 1.5 Lymphocytes % 14.6 L Mean Corpuscular Hemoglobin 32.1 Mean Corpuscular Hemoglobin Concent 33.7 Mean Corpuscular Volume 95.2 Mean Platelet Volume 11.8 H Monocytes # 0.7 Monocytes % 6.6 Neutrophils # 7.6 H Neutrophils % 74.9 Nucleated Red Blood Cells # 0.0 Nucleated Red Blood Cells % 0.0 Platelet Count 227 Potassium Level 3.9 Red Blood Count 3.90 L Red Cell Distribution Width 13.4 Sodium Level 147 H White Blood Count 10.2 Medications Medications Current Medications Cefepime HCl (Maxipime 1gm/50 ml (Pmx)) 50 ml @ 100 mls/hr Q12 IVPB Last administered on 03/24/16 09:25; Admin Dose 100 MLS/HR; Start 03/15/16 at 09:00; Stop 03/24/16 at 22:00 Enoxaparin Sodium (Lovenox) 30 mg BID SC Last administered on 03/18/16 21:44; Admin Dose 30 MG; Start 03/15/16 at 09:00; Status Future Hold Morphine Sulfate (morphine) 2 mg Q4H PRN IV pain; Start 03/14/16 at 21:30 Aspirin (Halfprin) 81 mg DAILY PO Last administered on 03/24/16 09:27; Admin Dose 81 MG; Start 03/15/16 at 09:00 Baclofen (Lioresal) 20 mg QID GTB Last administered on 03/24/16 13:28; Admin Dose 20 MG; Start 03/15/16 at 09:00 Chlorpromazine (Thorazine) 10 mg BID GTB Last administered on 03/22/16 21:19; Admin Dose 10 MG; Start 03/15/16 at 09:00 Cholecalciferol (Vitamin D) 2,000 unit DAILY GTB Last administered on 09:26; Admin Dose 2,000 UNIT; Start 03/15/16 at 09:00 Dicyclomine HCl (Bentyl) 10 mg BID GTB Last administered on 03/24/16 09:26; Admin Dose 10 MG; Start 03/15/16 at 09:00 Diphenhydramine HCl (Benadryl) 25 mg DAILY PRN GTB ITCHING Last administered on 03/16/16 16:05; Admin Dose 25 MG; Start 03/14/16 at 21:30 Escitalopram Oxalate (Lexapro) 10 mg DAILY GTB Last administered on 03/24/16 09:26; Admin Dose 10 MG; Start 03/15/16 at 09:00 Fenofibrate (Tricor) 145 mg QHS GTB Last administered on 03/23/16 21:14; Admin Dose 145 MG; Start 03/15/16 at 21:00 Lansoprazole (Prevacid) 30 mg DAILY@06 GTB Last administered on 03/24/16 05:16 ; Admin Dose 30 MG; Start 03/15/16 at 06:00 Lorazepam (Ativan) 1 mg HS GTB Last administered on 03/23/16 21:15; Admin Dose 1 MG; Start 03/15/16 at 00:00 Methenamine (Hiprex) 1 gm BID GTB Last administered on 03/24/16 09:26; Admin Dose 1 GM; Start 03/15/16 at 09:00 Fish Oil (Fish Oil) 1,000 mg DAILY PO Last administered on 03/24/16 09:26; Admin Dose 1,000 MG; Start 03/15/16 at 09:00 Saccharomyces Boulardii (Florastor) 250 mg BID GTB Last administered on 09:28; Admin Dose 250 MG; Start 03/15/16 at 09:00 Zolpidem Tartrate (Ambien) 5 mg QHS PRN GTB INSOMNIA; Start 03/14/16 at 21:30 Miscellaneous Information 1 tbs Q6 MM ; Start 03/15/16 at 00:00; Status UNV Levetiracetam (Keppra Liquid) 1,000 mg BID GTB Last administered on 03/24/16 09:25; Admin Dose 1,000 MG; Start 03/15/16 at 09:00 Ondansetron HCl (Zofran Inj) 4 mg Q6H PRN IV NAUSEA AND/OR VOMITING; Start at 22:00 Potassium Chloride 20 meq 20 meq DAILY GTB Last administered on 03/24/16 09:26 ; Admin Dose 20 MEQ; Start 03/15/16 at 09:00 Sodium Chloride (NS) 1,000 ml @ 50 mls/hr Q20H IV Last administered on 05:16; Admin Dose 50 MLS/HR; Start 03/20/16 at 08:15 TAYA PATINO Mar 24, 2016 17:45
[2016-03-24] MEDS: SOD CHLORIDE 0.45% 1,000 ML IV SCH (18:41)
[2016-03-24 19:18] VITALS: BP 93/53; RESP 20
[2016-03-24] MEDS: LORAZEPAM 1 MG TAB GTB SCH (22:21)
[2016-03-24] MEDS: FENOFIBRATE 145 MG TAB GTB SCH (22:23)
[2016-03-25] MEDS: ALBUTEROL 0.083% (NEB) 2.5 MG/3 ML AMP HHN SCH ×3 (01:43→14:01)
[2016-03-25 06:04] LABS: POTASSIUM 4.4 mmol/L (3.5-5.1)
[2016-03-25 06:06] LABS: CREATININE 0.71 mg/dl (0.61-1.24)
[2016-03-25 06:07] LABS: BASOPHILS % 0.6 % (0.0-2.0); CALCIUM 9.3 mg/dl (8.4-10.2); EOSINOPHILS # 0.5 10^3/ul (0.0-0.5); EOSINOPHILS % 5.5 % (0.0-7.0); HEMOGLOBIN 11.8 g/dl (14.0-18.0); LYMPHOCYTES # 1.8 10^3/ul (0.8-2.9); LYMPHOCYTES % 21.5 % (15.0-51.0); MEAN CORPUSCULAR HEMOGLOBIN 31.9 pg (29.0-33.0); MEAN CORPUSCULAR HGB CONC 33.7 g/dl (32.0-37.0); MEAN CORPUSCULAR VOLUME 94.8 fl (82.0-101.0); MONOCYTE # 0.6 10^3/ul (0.3-0.9); MONOCYTES % 6.9 % (0.0-11.0); NEUTROPHIL # 5.4 10^3/ul (1.6-7.5); NEUTROPHILS % 65.5 % (39.0-77.0); PLATELET COUNT 217 10^3/UL (140-440); RED BLOOD COUNT 3.69 10^6/ul (4.70-6.10); RED CELL DISTRIBUTION WIDTH 13.4 % (11.5-14.5); UNCORRECTED WBC 8.3 10^3/ul (4.8-10.8); WHITE BLOOD COUNT 8.3 10^3/ul (4.8-10.8)
[2016-03-25 06:11] LABS: CONDITION 1
[2016-03-25] MEDS: LANSOPRAZOLE 30 MG CAP GTB SCH (06:13)
[2016-03-25 08:04] VITALS: BP 93/51; RESP 20
[2016-03-25] MEDS: CHLORPROMAZINE 10 MG TAB GTB SCH (09:00)
[2016-03-25] MEDS: DIPHENHYDRAMINE 25 MG CAP GTB PRN (09:08)
[2016-03-25] MEDS: ASPIRIN (EC) 81 MG TAB PO SCH (09:08)
[2016-03-25] MEDS: ESCITALOPRAM 10 MG TAB GTB SCH (09:08)
[2016-03-25] MEDS: LEVETIRACETAM (100 MG/ML) 5ML CUP GTB SCH (09:08)
[2016-03-25] MEDS: CHOLECALCIFEROL 2,000 UNIT CAP GTB SCH (09:08)
[2016-03-25] MEDS: POTASSIUM CHLORIDE 20 MEQ POWDER FOR ORAL SOLN GTB SCH (09:08)
[2016-03-25] MEDS: BACLOFEN 10 MG TAB GTB SCH ×3 (09:08→13:25)
[2016-03-25] MEDS: SACCHAROMYCES BOULARDII 250 MG CAP GTB SCH (09:08)
[2016-03-25] MEDS: FISH OIL 1,000 MG CAP PO SCH (09:08)
[2016-03-25] MEDS: DICYCLOMINE 10 MG CAP GTB SCH (09:08)
[2016-03-25] MEDS: METHENAMINE 1 GM TAB GTB SCH (09:21)
--- NOTE | 2016-03-25 11:20 | PN ---
DATE: 03/25/2016 SUBJECTIVE: The patient with a history of right distal ureteral stone, status post right ureterosco py and laser lithotripsy, bilateral kidney stones, urinary retention with an indwelling Brock cathet er. The patient had a JJ stent which was removed a few days back and the patient still has the Fole y catheter because of the history of urinary retention and neurogenic bladder secondary to multiple sclerosis. The urine is now clear and the patient is very comfortable. PHYSICAL EXAMINATION: VITAL SIGNS: Temperature 97.9, the pulse is 69, the respiration is 20, blood pressure 93/51. ABDOMEN: Soft. The Brock catheter is draining clear urine. In the bag it will look darker because of the concentration in the bag, but in the tubing it perfectly yellow clear. LABORATORY DATA: CBC shows a white count of 8.3, hemoglobin 11.8, hematocrit 35.0, BUN is 20, creat inine 0.71. Electrolytes are normal. Urine culture: No growth after 48 hours. IMPRESSION: From a urological standpoint, he is doing well. He does have bilateral renal stones wh ich we will leave alone. As far as his urinary retention he should have the catheter all the time a nd that catheter will be changed as needed and/or at least once a month. He may be discharged from a urological standpoint. Dictated By: ARIAN CORTES/DORON Conf#: [id number] DID#: [id number]
[2016-03-25] MEDS: SOD CHLORIDE 0.45% 1,000 ML IV SCH (14:00)
--- NOTE | 2016-03-25 21:52 | DS ---
DATE OF ADMISSION: 03/14/2016 DATE OF DISCHARGE: 03/25/2016 FINAL DIAGNOSES: 1. Acute cystitis, status post treatment. 2. Kidney stones, status post cystoscopy and right ureteroscopy, laser lithotripsy, and insertion o f right ureteral JJ stent and subsequent removal of JJ stent. 3. Advanced multiple sclerosis. 4. Hyperlipidemia. 5. Chronic respiratory failure with tracheostomy. 6. Dysphagia with gastrostomy tube. BRIEF HISTORY: The patient is a 65-year-old gentleman with history of multiple sclerosis, neurogeni c bladder, history of urinary retention, and bladder stones. The patient was admitted from half-way facility because of the gross hematuria. The patient was diagnosed with urinary tract infec tion, and admitted for further evaluation and management. HOSPITAL COURSE: Patient's urine culture grew Providencia stuartii and Pseudomonas aeruginosa. The patient was given cefepime. The patient was also evaluated by Dr. Douglas in urology consultation, and underwent the above-mentioned procedures. The patient has mild hematuria status post procedure , and hemoglobin was closely monitored and well controlled. Patient's condition improved and the thiago ware will be discharged to half-way facility. CONDITION ON DISCHARGE: Hemodynamically stable. ACTIVITY: As patient tolerates. DISCHARGE DIET: Continue current G-tube feeding formula at current rate. DISCHARGE MEDICATIONS 1. Aspirin. 2. Baclofen. 3. Thorazine. 4. Cholecalciferol. 5. Bentyl. 6. Benadryl. 7. Lexapro. 8. Tricor. 9. [place] 3 fatty acids fish oil. 10. Prevacid. 11. Keppra. 12. Ativan at bedtime. 13. Hiprex. 14. Potassium chloride. 15. Florastor. 16. Ambien p.r.n. for insomnia. 17. Copaxone. 18. Boniva. 19. Saliva stimulants. 20. Coenzyme Q10 Interdisciplinary care was established for this patient. Plan of care was discussed with Dr. Juan C lew. Dictated By: TAYA PATINO CAPACITOR REPAIRER for IGNACIO MCGUIRE MD, SR/NTS Conf#: [id number] DID#: [id number]
== END 2016-03-25 15:05 | DRG 669 ==
LOC: E/R 17:41 → MS2 19:18
PROVIDERS: ADMIT Internal Medicine; ATTEND Internal Medicine
PROC: 0T768DZ Dilation of Right Ureter with Intraluminal Device, Via Natural or Artificial Opening Endoscopic (ICD-10-PCS; 2016-03-18)
PROC: 0TC68ZZ Extirpation of Matter from Right Ureter, Via Natural or Artificial Opening Endoscopic (ICD-10-PCS; principal; 2016-03-18 07:30)
DX: N20.1 Calculus of ureter (principal); N30.01 Acute cystitis with hematuria; G35 Multiple sclerosis; N20.0 Calculus of kidney; R13.10 Dysphagia, unspecified; Z87.442 Personal history of urinary calculi; N31.9 Neuromuscular dysfunction of bladder, unspecified; R33.8 Other retention of urine; G40.909 Epilepsy, unspecified, not intractable, without status epilepticus; Z74.01 Bed confinement status; B96.5 Pseudomonas (aeruginosa) (mallei) (pseudomallei) as the cause of diseases classified elsewhere; B96.89 Other specified bacterial agents as the cause of diseases classified elsewhere; Z93.1 Gastrostomy status
CPT/HCPCS: 36415; 71010; 74000; 74176; 74430; 80048; 80053; 81001; 81003; 83605; 84484; 85025; 85610; 85730; 87040; 87045; 87075; 87081; 87086; 88300; 93005; 94640; 94664; 96374; A4310; C2617; J0692; J1100; J1650; J2250; J2370; J2405; J3010; J3230; J3370; J7030; Q9967

== ENCOUNTER 2016-05-17 22:01 | Inpatient (IN) | payer MEDICARE, OTHER ==
[~2016-05-17] VITALS: Ht 177.8 cm; Wt 74.0 kg
[~2016-05-17 22:01] MED LIST changes: -ACET325T45 GTB; -ALBU2.5V3 NEB; -ASCO500C7 GTB; -BISA10SU58 PR; -CRAN3875 GTB; -DOCU-159 PO; +ESCI10TA GTB; -ESCI10TA48 GTB; -FENO145T19 GTB; +FENO145T25 GTB; -MAGN400O4 GTB; -NA P118E PR; -TYL500 GTB; +ZOLP5TAB GTB; -ZOLP5TAB6 GTB
--- NOTE | 2016-05-17 23:11 | RADRPT ---
PROCEDURE: XR Chest. CLINICAL INDICATION: Possible sepsis. TECHNIQUE: Portable AP semi supine view of the chest was obtained. COMPARISON: 03/14/2016 FINDINGS: The cardiomediastinal silhouette is borderline enlarged but unchanged. Tracheostomy is again noted in satisfactory position with right medial lower lobe and lingular infiltrates not appreciated previ ously. Small left larger than right pleural effusions are difficult to exclude. There is no eviden ce of pneumothorax. The osseous structures are intact with no evidence for acute abnormality. RPTAT:HJJR IMPRESSION: 1. Interval development of a medial right lower lobe and inferior lingula infiltrates compared to t he study of 03/14/2016 unable to exclude pneumonia. Consider follow-up evaluation. 2. Borderline cardiac silhouette enlargement. 3. Tracheostomy remains in good position. Physician Kristina Date Time Electronically viewed and signed by Physician Kristina on 05/17/2016 23:11 /
[2016-05-17 23:13] LABS: ADD SCAN DIFF NO
[2016-05-17 23:19] LABS: AADO2 Arterial 111.2 mmHg (7.0-24.0); Allen Test ACCEPTAB; Arterial Base Excess 0.9 mmol/L (-3.0-3); Arterial COHb 0.3 % (0.0-3.0); Arterial Fraction of Oxyhgb 95.1 % (93.0-99.0); Arterial MetHb 0.5 % (0.0-1.5); Arterial Total Hemglobin 14.4 g/dl (12.0-18.0); MODE NASAL CANNULA
[2016-05-17 23:20] LABS: BASOPHILS % 0.5 % (0.0-2.0); EOSINOPHILS # 0.1 10^3/ul (0.0-0.5); EOSINOPHILS % 1.3 % (0.0-7.0); HEMATOCRIT 43.7 % (42.0-52.0); HEMOGLOBIN 14.3 g/dl (14.0-18.0); LYMPHOCYTES # 0.8 10^3/ul (0.8-2.9); MEAN CORPUSCULAR HEMOGLOBIN 31.1 pg (29.0-33.0); MEAN CORPUSCULAR HGB CONC 32.7 g/dl (32.0-37.0); MEAN PLATELET VOLUME 12.7 fl (7.4-10.4); MONOCYTE # 0.6 10^3/ul (0.3-0.9); MONOCYTES % 6.9 % (0.0-11.0); NEUTROPHIL # 6.7 10^3/ul (1.6-7.5); NEUTROPHILS % 80.8 % (39.0-77.0); PLATELET COUNT 240 10^3/UL (140-415); RED CELL DISTRIBUTION WIDTH 13.2 % (11.5-14.5); WHITE BLOOD COUNT 8.2 10^3/ul (4.8-10.8)
[2016-05-17 23:25] LABS: ALBUMIN 4.2 g/dl (3.3-4.9); CHLORIDE 102 mmol/L (97-110); POTASSIUM 4.1 mmol/L (3.5-5.1); SODIUM 142 mmol/L (135-144)
[2016-05-17 23:26] LABS: INR 1.13; PROTIME 14.5 Sec (12.2-14.2); PT RATIO 1.1
[2016-05-17 23:27] LABS: PARTIAL THROMBOPLASTIN TIME 37.3 Sec (25.0-35.0)
[2016-05-17 23:28] LABS: ALANINE AMINOTRANSFERASE 35 IU/L (13-69); ALKALINE PHOSPHATASE 70 IU/L (42-121); ANION GAP 17 (8-16); ASPARTATE AMINO TRANSFERASE 47 IU/L (15-46); BLOOD UREA NITROGEN 16 mg/dl (7-20); CARBON DIOXIDE 27 mmol/L (21-31); CREATININE 0.79 mg/dl (0.61-1.24); GLUCOSE 122 mg/dl (70-220)
[2016-05-17 23:29] LABS: CALCIUM 9.1 mg/dl (8.4-10.2)
[2016-05-17 23:38] LABS: ADD UMIC YES; URINE BILIRUBIN (Dip) NEGATIVE (NEGATIVE); URINE BLOOD (Dip) TRACE (NEGATIVE); URINE COLOR LT. YELLOW (YELLOW); URINE GLUCOSE (Dip) NEGATIVE (NEGATIVE); URINE KETONES (Dip) NEGATIVE (NEGATIVE); URINE LEUKOCYTE ESTERASE (Dip) 1+ (NEGATIVE); URINE NITRITE (Dip) POSITIVE (NEGATIVE); URINE TOTAL PROTEIN (Dip) TRACE (NEGATIVE); URINE UROBILINOGEN (Dip) 0.2 E.U./dL (0.1-1.0)
[2016-05-17 23:42] LABS: TROPONIN-I < 0.012 ng/ml (0.00-0.12)
[2016-05-17 23:53] LABS: BACTERIA,URINE FEW; MUCUS,URINE OCCASIONAL; URINE RBCS 0-2 /HPF (0)
[2016-05-17] MEDS ORDERED: CEFEPIME 1GM/50 ML (PMX) 50 ML IVPB STA (23:54)
[2016-05-17] MEDS ORDERED: VANCOMYCIN 1 GM (PMX) 250 ML IVPB STA (23:54)
[2016-05-18] VITALS (12 sets, daily range): BP systolic 105–132; BP diastolic 55–62; PULSE 72–88; RESP 18–22; TEMP 98.4; Ht 177.8 cm; Wt 74.0 kg
--- NOTE | 2016-05-18 00:31 | ERA ---
ER Documentation Chief Complaint Date/Time DATE: 05/18/16 TIME: 00:30 Chief Complaint low O2 sat HPI This is a 65-year-old male sent by the skin that seems for low O2 saturation. Patient himself cannot give any relevant history. History stream as mentioned. ROS All systems reviewed and are negative except as per history of present illness. Medications Home Meds Reported Medications Enoxaparin Sodium* (Lovenox*) 40 Mg/0.4 Ml Syringe, 40 MG SC DAILY, SYR 03/14/16 Lansoprazole* (Lansoprazole*) 30 Mg Capsule.dr, 30 MG GTB DAILY, CAP 03/14/16 Zolpidem Tartrate* (Ambien*) 5 Mg Tablet, 5 MG GTB QHS Y for INSOMNIA, #30 TAB 03/14/16 Lorazepam* (Lorazepam*) 1 Mg Tablet, 1 MG GTB HS, #30 TAB 03/14/16 Fenofibrate Nanocrystallized* (Tricor*) 145 Mg Tablet, 145 MG GTB QHS, TAB 03/14/16 Escitalopram Oxalate* (Lexapro*) 10 Mg Tablet, 10 MG GTB DAILY, #30 TAB 03/14/16 Diphenhydramine Hcl* (Diphenhydramine Hcl*) 25 Mg Capsule, 25 MG GTB DAILY Y for ITCHING, CAP 01/11/16 Ubidecarenone (COENZYME Q10) 100 Mg Tablet, 200 MG GTB DAILY, TAB 07/18/15 Saliva Stimulant Agents Comb.2 (Biotene Oralbalance) 44.3 Ml Liquid, 1 TBS MM Q6 RINSE FOR 30 SECONDS THEN SPIT OUT 10/11/14 Saccharomyces Boulardii* (Florastor*) 250 Mg Cap, 250 MG GTB BID, CAP 10/11/14 Potassium Chloride* (Potassium Chloride*) 20 Meq/15 Ml Liquid, 20 MEQ GTB DAILY , ML 10/11/14 [place]-3 Fatty Acids/Fish Oil* (Fish Oil *) 1,000 Mg Capsule, 1000 MG GTB DAILY, CAP 10/11/14 Levetiracetam* (Keppra* (Ped)) 100 Mg/Ml Liq, 1000 MG GTB BID for 30 Days, BOTTLE 10/11/14 Ibandronate Sodium (Boniva) 3 Mg/3 Ml/Box Syringekit, 3 MG IV Q90 DAYS 10/11/14 Glatiramer Acetate (Copaxone) 40 Mg/1 Ml Syringe, 40 MG SQ MON,WED,Wed10/11/14 Dicyclomine Hcl* (Bentyl*) 10 Mg Capsule, 10 MG GTB BID, CAP 10/11/14 Cholecalciferol* (Vitamin D3*) 2,000 Unit Cap, 2000 UNIT GTB DAILY, CAP 10/11/14 Chlorpromazine Hcl* (Chlorpromazine Hcl*) 10 Mg Tablet, 10 MG GTB Q12 PRN, TAB 10/11/14 Baclofen* (Baclofen*) 20 Mg Tablet, 20 MG GTB QID, TAB 10/11/14 Methenamine Hippurate* (Hiprex*) 1 Gm Tab, 1 GM GTB BID 11/29/12 Aspirin Ec (Aspir 81) 81 Mg Tablet.dr, 81 MG GTB DAILY 11/29/12 Allergies Allergies: Coded Allergies: phenobarbital (Verified Allergy, Mild, UNK, 03/14/16) phenytoin (Verified Allergy, Mild, UNK, 03/14/16) PMhx/Soc History of Surgery: Yes (PEG) Anesthesia Reaction: No Hx Neurological Disorder: Yes (MS) Hx Respiratory Disorders: Yes (respiratory failure -on trach to PMV ) Hx Cardiac Disorders: Yes (hyperccolestyerolnemia) Hx Psychiatric Problems: Yes (depressions) Hx Miscellaneous Medical Probl: Yes (hiccups, insomnia) Hx Alcohol Use: No Hx Substance Use: No Hx Tobacco Use: No Smoking Status: Unknown if ever smoked Physical Exam Vitals Vital Signs Date Time Temp Pulse Resp B/P Pulse Ox O2 Delivery O2 Flow Rate FiO2 05/17/16 22:19 4 05/17/16 22:17 97.8 93 20 116/66 98 Physical Exam Const: [] Head: Atraumatic Eyes: Normal Conjunctiva ENT: Normal External Ears, Nose and Mouth. Neck: Full range of motion..~ No meningismus. Resp: Clear to auscultation bilaterally Cardio: Regular rate and rhythm, no murmurs Abd: Soft, non tender, non distended. Normal bowel sounds Skin: No petechiae or rashes Back: No midline or flank tenderness Ext: No cyanosis, or edema Neur: Awake and alert Psych: Normal Mood and Affect Result Diagram: 05/17/16223905/17/162239 Results 24 hrs Laboratory Tests Test 05/17/16 22:12 05/17/16 22:40 05/17/16 22:50 Arterial Blood HCO3 25.0mmol/L Arterial Blood Base Excess 0.9mmol/L Arterial Blood Oxygen Saturation 95.9mmHG [place] Test ACCEPTAB Arterial Blood Gas Puncture Site Right Radial Arterial Blood Carboxyhemoglobin 0.3% Arterial Blood Date Drawn 05/17/2016 11:12:17 PM Arterial Blood Methemoglobin 0.5% Arterial Blood pCO2 (Temp correct) 38.3mmhg Arterial Blood pH (Temp corrected) 7.433 Arterial Blood pO2 (Temp corrected) 79.4mmHG Blood Gas A-a O2 Differential 111.2mmHg Blood Gas Actual Respiration Rate 26 Blood Gas Modality NASAL CANNULA Blood Gas Notified Time 05/17/2016 11:19:32 PM Blood Gas Notified Whom MG Blood Gas Specimen Source Blood arterial Blood Gas Temperature 37.0C FiO2 33.0% Oxyhemoglobin Percent 95.1% Total Hemoglobin 14.4g/dl Activated Partial Thromboplast Time 37.3Sec Alanine Aminotransferase (ALT/SGPT) 35IU/L Albumin 4.2g/dl Albumin/Globulin Ratio 1.10 Alkaline Phosphatase 70IU/L Anion Gap 17 Aspartate Amino Transf (AST/SGOT) 47IU/L Basophils # 0.010^3/ul Basophils % 0.5% Blood Urea Nitrogen 16mg/dl Calcium Level 9.1mg/dl Carbon Dioxide Level 27mmol/L Chloride Level 102mmol/L Creatinine 0.79mg/dl Direct Bilirubin 0.00mg/dl Eosinophils # 0.110^3/ul Eosinophils % 1.3% Globulin 3.80g/dl Glucose Level 122mg/dl Hematocrit 43.7% Hemoglobin 14.3g/dl INR International Normalized Ratio 1.13 Indirect Bilirubin 0.0mg/dl Lactic Acid Level 1.3mmol/L Lymphocytes # 0.810^3/ul Lymphocytes % 10.0% Mean Corpuscular Hemoglobin 31.1pg Mean Corpuscular Hemoglobin Concent 32.7g/dl Mean Corpuscular Volume 95.0fl Mean Platelet Volume 12.7fl Monocytes # 0.610^3/ul Monocytes % 6.9% Neutrophils # 6.710^3/ul Neutrophils % 80.8% Nucleated Red Blood Cells # 0.010^3/ul Nucleated Red Blood Cells % 0.0/100WBC Platelet Count 41504^3/UL Potassium Level 4.1mmol/L Prothrombin Time 14.5Sec Prothrombin Time Ratio 1.1 Red Blood Count 4.6010^6/ul Red Cell Distribution Width 13.2% Sodium Level 142mmol/L Total Bilirubin 0.0mg/dl Total Protein 8.0g/dl Troponin I < 0.012ng/ml White Blood Count 8.210^3/ul Urine Amorphous Urates OCCASIONAL Urine Bacteria FEW Urine Bilirubin NEGATIVE Urine Clarity SLIGHTLY CLOUDY Urine Color LT. YELLOW Urine Glucose NEGATIVE% Urine Hemoglobin TRACE Urine Ketones NEGATIVE Urine Leukocyte Esterase 1+ Urine Microscopic RBC 0-2/HPF Urine Microscopic WBC >50/HPF Urine Mucus OCCASIONAL Urine Nitrite POSITIVE Urine Specific [place] 1.015 Urine Total Protein TRACE Urine Urobilinogen 0.2 E.U./dL Urine pH 6.0 Current Medications Medications (Trade) Dose Ordered Sig/Kobe Route PRN Reason Start Time Stop Time Status Last Admin Dose Admin Cefepime HCl 50 ml @ 100 mls/hr ONCE STAT IVPB 05/17/16 23:54 05/18/16 00:23 DC Vancomycin HCl (Vancocin) 250 ml @ 125 mls/hr ONCE STAT IVPB 05/17/16 23:54 05/18/16 01:53 Procedures/MDM Chest X-ray 1V Interpreted by me: Soft Tissue: No acute abnormalities Bones: No acute abnormalities Mediastinum/Cardiac Silhouette/Lungs: Right lower lobe pneumonia EKG: Rate/Rhythm: Normal Sinus Rhythm QRS, ST, T-waves: No changes consistent w/ acute ischemia Impression: No evidence of ischemia or arrhythmia Medical decision-makin-year-old male was evidence of right lower lobe pneumonia. This hospital-acquired likely. Patient has been started on broad- spectrum antibodies post blood cultures. Patient will be admitted to Dr. Hale who is on-call for primary care physician. Departure Diagnosis: Primary Impression: Pneumonia Qualified Code: J18.9 - Pneumonia of right lower lobe due to infectious organism Condition: Stable YASH CUENCAHola May 18, 2016 00:31
[2016-05-18] MEDS ORDERED: DIPHENHYDRAMINE 25 MG CAP GTB PRN (04:30)
[2016-05-18] MEDS ORDERED: NON-FORMULARY/PATIENT OWN MED (Glatiramer Acetate (Copaxone) 40 MG) SQ SCH (04:30)
[2016-05-18] MEDS: LANSOPRAZOLE 30 MG CAP GTB SCH (06:33)
[2016-05-18] MEDS: ALBUTEROL/IPRATROPIUM (NEB) 3 ML AMP HHN SCH ×3 (07:44→20:51)
[2016-05-18] MEDS: GLATIRAMER ACETATE 40 MG XX SCH ×2 (08:00→16:00)
[2016-05-18] MEDS: [UNRECOGNIZED DRUG - OTHER] MM SCH ×3 (08:30→17:37)
[2016-05-18] MEDS: E LYTES MM SCH ×3 (08:30→17:37)
[2016-05-18] MEDS ORDERED: UBIDECARENONE 200 MG GTB SCH (09:00)
[2016-05-18] MEDS ORDERED: LEVETIRACETAM (100 MG/ML PO SYG) GTB SCH (09:00)
[2016-05-18] MEDS ORDERED: POTASSIUM CHLORIDE (1.33 MEQ/ML PO SYG) GTB SCH (09:00)
[2016-05-18] MEDS: CHLORPROMAZINE 10 MG TAB GTB SCH ×2 (09:00→21:31)
[2016-05-18] MEDS ORDERED: ASPIRIN (EC) 81 MG TAB PO SCH (09:00)
[2016-05-18] MEDS: POTASSIUM CHLORIDE 20 MEQ POWDER FOR ORAL SOLN GTB SCH (09:16)
[2016-05-18] MEDS: METHENAMINE 1 GM TAB GTB SCH ×2 (09:16→21:31)
[2016-05-18] MEDS: ASPIRIN 81 MG TAB GTB SCH (09:16)
[2016-05-18] MEDS: SACCHAROMYCES BOULARDII 250 MG CAP GTB SCH ×2 (09:16→21:31)
[2016-05-18] MEDS: LEVETIRACETAM (100 MG/ML) 5ML CUP GTB SCH ×2 (09:16→21:30)
[2016-05-18] MEDS: BACLOFEN 10 MG TAB GTB SCH ×4 (09:17→21:31)
[2016-05-18] MEDS: DICYCLOMINE 10 MG CAP GTB SCH ×2 (09:17→21:31)
[2016-05-18] MEDS: CHOLECALCIFEROL 2,000 UNIT CAP GTB SCH (09:17)
[2016-05-18] MEDS: FISH OIL 1,000 MG CAP PO SCH (09:17)
[2016-05-18] MEDS: ESCITALOPRAM 10 MG TAB GTB SCH (09:17)
[2016-05-18] MEDS: ENOXAPARIN 40 MG/0.4 ML SYG SC SCH (09:34)
[2016-05-18] MEDS ORDERED: VANCOMYCIN IV PER PHARMACY XX SCH (13:00)
--- NOTE | 2016-05-18 13:18 | CONS ---
Date/Time of Note Date/Time of Note DATE: 05/18/16 TIME: 13:13 Assessment/Plan Assessment/Plan Additional Assessment/Plan Chest x-ray was reviewed from yesterday which is showing a scant right lower lobe infiltrate. Urinalysis grossly positive for UTI. Assessment recommendations; 1. Patient admitted with pneumonia and UTI with sepsis. 2. History of multiple sclerosis. Status post tracheostomy currently maintained on Passy-Liz valve. 3. 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 Continue current treatment. Obtain a follow-up chest x-ray tomorrow morning. Further antibiotic adjustment to be done once urine culture results are obtained. I did have a detailed discussion the patient's at bedside on throughout her questions patient potentially could be event candidate for long- term maintenance antibiotic for UTI prophylaxis however that will depend upon the ID and sensitivity of the offending organism. Consultation Date/Type/Reason Admit Date/Time May 17, 2016 at 23:55 Date of Consultation: May 18, 2016 Type of Consultation: Pulmonary Reason for Consultation Pulmonary consultation obtained for evaluation of hypoxemia. History presenting; patient is a pleasant 65-year-old white male who was admitted yesterday transferred [facility] from [facility] living with low pulse oximetry reading. Upon evaluation he had a chest x-ray was done which is showing a right lower lobe infiltrate patient also been diagnosed with UTI. According to him he is feeling much better now denies any shortness of breath, cough sputum production fever or chills. Past medical history; next 1. Patient with a history of multiple sclerosis status post tracheostomy currently on Passy-Liz valve. 2. Multiple episodes of pneumonia as well as UTI and sepsis. 3. History of hyperlipidemia. Medications; were reviewed. Allergies; R to phenytoin and phenobarbital. Social history; patient never smoked. No swelling or drug abuse. Family history; patient is he has 2 children. Most of any multiple sclerosis in the family. Occupational history; patient on disability. Review of systems; denies any headache, seizures. Any abdominal pain, nausea vomiting. Patient has dysphagia, is being fed through G-tube. Denies any fever chills. Complains of scant cough with scant sputum production. Denies any visual changes,any sinus symptoms or postnasal drip. Denies any orthopnea. General exam; elderly male, currently in no distress, awake and alert. Social History Smoking Status: Never smoker Exam/Review of Systems Vital Signs Vitals Vital Signs Date Time Temp Pulse Resp B/P Pulse Ox O2 Delivery O2 Flow Rate FiO2 05/18/16 12:18 78 05/18/16 11:29 98.0 18 107/62 95 05/18/16 07:56 4.0 05/18/16 07:52 Nasal Cannula 05/18/16 03:24 33 Intake and Output 05/17/16 05/17/16 05/18/16 15:00 23:00 07:00 Intake Total 150 ml Output Total 300 ml Balance -150 ml Exam H EENT examination; supple neck, no JVD. No lymphadenopathy. Midline trachea. No thyromegaly. Pharynx is clear. Patient has fair dentition. Pupils are midsize and reactive to light. Tracheostomy in place with clean insertion site. Passy-Liz valve in place. Next Chest examination; diminished breath sounds right lung with scattered crackles left lung is clear S1-S2 audible no murmurs regular rhythm. Abdomen soft, G-tube in place. Bowel sounds audible. Abdomen is nondistended no organomegaly felt. Extremity exam; no peripheral edema. Pulses 2+ bilaterally. 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 He is able to move upper extremities to some extent. Results Result Diagram: 05/17/16223905/17/162239 Results 24 hrs Laboratory Tests Test 05/17/16 22:12 05/17/16 22:40 05/17/16 22:50 05/18/16 03:11 Arterial Blood HCO3 25.0 Arterial Blood Base Excess 0.9 Arterial Blood Oxygen Saturation 95.9 Grayson Test ACCEPTAB Arterial Blood Gas Puncture Site Right Radial Arterial Blood Carboxyhemoglobin 0.3 Arterial Blood Date Drawn 05/17/2016 11:12:17 PM Arterial Blood Methemoglobin 0.5 Arterial Blood pCO2 (Temp correct) 38.3 Arterial Blood pH (Temp corrected) 7.433 Arterial Blood pO2 (Temp corrected) 79.4 L Blood Gas A-a O2 Differential 111.2 H Blood Gas Actual Respiration Rate 26 Blood Gas Modality NASAL CANNULA Blood Gas Notified Time 05/17/2016 11:19:32 PM Blood Gas Notified Whom MG Blood Gas Specimen Source Blood arterial Blood Gas Temperature 37.0 FiO2 33.0 Oxyhemoglobin Percent 95.1 Total Hemoglobin 14.4 Activated Partial Thromboplast Time 37.3 H Alanine Aminotransferase (ALT/SGPT) 35 Albumin 4.2 Albumin/Globulin Ratio 1.10 Alkaline Phosphatase 70 Anion Gap 17 H Aspartate Amino Transf (AST/SGOT) 47 H Basophils # 0.0 Basophils % 0.5 Blood Urea Nitrogen 16 Calcium Level 9.1 Carbon Dioxide Level 27 Chloride Level 102 Creatinine 0.79 Direct Bilirubin 0.00 Eosinophils # 0.1 Eosinophils % 1.3 Globulin 3.80 H Glucose Level 122 Hematocrit 43.7 # Hemoglobin 14.3 # INR International Normalized Ratio 1.13 Indirect Bilirubin 0.0 Lactic Acid Level 1.3 1.7 Lymphocytes # 0.8 Lymphocytes % 10.0 L Mean Corpuscular Hemoglobin 31.1 Mean Corpuscular Hemoglobin Concent 32.7 Mean Corpuscular Volume 95.0 Mean Platelet Volume 12.7 H Monocytes # 0.6 Monocytes % 6.9 Neutrophils # 6.7 Neutrophils % 80.8 H Nucleated Red Blood Cells # 0.0 Nucleated Red Blood Cells % 0.0 Platelet Count 240 Potassium Level 4.1 Prothrombin Time 14.5 H Prothrombin Time Ratio 1.1 Red Blood Count 4.60 #L Red Cell Distribution Width 13.2 Sodium Level 142 Total Bilirubin 0.0 L Total Protein 8.0 Troponin I < 0.012 White Blood Count 8.2 Urine Amorphous Urates OCCASIONAL Urine Bacteria FEW Urine Bilirubin NEGATIVE Urine Clarity SLIGHTLY CLOUDY Urine Color LT. YELLOW Urine Glucose NEGATIVE Urine Hemoglobin TRACE Urine Ketones NEGATIVE Urine Leukocyte Esterase 1+ H Urine Microscopic RBC 0-2 Urine Microscopic WBC >50 Urine Mucus OCCASIONAL Urine Nitrite POSITIVE H Urine Specific [place] 1.015 Urine Total Protein TRACE Urine Urobilinogen 0.2 E.U./dL Urine pH 6.0 Test 05/18/16 06:05 Lactic Acid Level 0.9 Medications Medications Current Medications Baclofen (Lioresal) 20 mg QID GTB Last administered on 05/18/16 12:24; Admin Dose 20 MG; Start 05/18/16 at 09:00 Chlorpromazine (Thorazine) 10 mg Q12 GTB ; Start 05/18/16 at 09:00 Cholecalciferol (Vitamin D) 2,000 unit DAILY GTB Last administered on 05/18/16 09:17; Admin Dose 2,000 UNIT; Start 05/18/16 at 09:00 Dicyclomine HCl (Bentyl) 10 mg BID GTB Last administered on 05/18/16 09:17; Admin Dose 10 MG; Start 05/18/16 at 09:00 Diphenhydramine HCl (Benadryl) 25 mg DAILY PRN GTB ITCHING; Start 05/18/16 at 04 :30 Enoxaparin Sodium (Lovenox) 40 mg DAILY SC Last administered on 05/18/16 09:34 ; Admin Dose 40 MG; Start 05/18/16 at 09:00 Escitalopram Oxalate (Lexapro) 10 mg DAILY GTB Last administered on 05/18/16 09 :17; Admin Dose 10 MG; Start 05/18/16 at 09:00 Fenofibrate (Tricor) 145 mg QHS GTB ; Start 05/18/16 at 21:00 Lansoprazole (Prevacid) 30 mg DAILY@06 GTB Last administered on 05/18/16 06:33 ; Admin Dose 30 MG; Start 05/18/16 at 06:00 Lorazepam (Ativan) 1 mg HS GTB ; Start 05/18/16 at 21:00 Methenamine (Hiprex) 1 gm BID GTB Last administered on 05/18/16 09:16; Admin Dose 1 GM; Start 05/18/16 at 09:00 Fish Oil (Fish Oil) 1,000 mg DAILY PO Last administered on 05/18/16 09:17; Admin Dose 1,000 MG; Start 05/18/16 at 09:00 Saccharomyces Boulardii (Florastor) 250 mg BID GTB Last administered on 09:16; Admin Dose 250 MG; Start 05/18/16 at 09:00 Zolpidem Tartrate (Ambien) 5 mg QHS PRN GTB INSOMNIA; Start 05/18/16 at 04:30 Miscellaneous Information 40 mg MON,WED,FRI SQ ; Start 05/18/16 at 04:30; Status UNV Miscellaneous Information 1 tbs Q6 MM ; Start 05/18/16 at 06:00; Status UNV Levetiracetam (Keppra Liquid) 1,000 mg BID GTB Last administered on 05/18/16 09 :16; Admin Dose 1,000 MG; Start 05/18/16 at 09:00 Potassium Chloride (Potassium Chloride Pwd/Soln) 20 meq DAILY GTB Last administered on 05/18/16 09:16; Admin Dose 20 MEQ; Start 05/18/16 at 09:00 Aspirin (Aspirin) 81 mg DAILY GTB Last administered on 05/18/16 09:16; Admin Dose 81 MG; Start 05/18/16 at 09:00 Miscellaneous Information (*Order Clarification Bulletin) Ibandronate Sodium ( Boniva) 3 ... Q8H XX ; Start 05/18/16 at 08:00 Miscellaneous Information Glatiramer Acetate (Copaxone)... Q8H XX ; Start at 08:00 Cefepime HCl (Maxipime 1gm/50 ml (Pmx)) 50 ml @ 100 mls/hr Q12 IVPB ; Start 05/18/16 at 21:00; Status BEN PINTO May 18, 2016 13:18
--- NOTE | 2016-05-18 13:37 | HP ---
DATE OF ADMISSION: 05/17/2016 CHIEF COMPLAINT: Fever and oxygen desaturation. HISTORY OF PRESENT ILLNESS: The patient is a 65-year-old gentleman known to me from previous admiss ion. Patient with history of advanced multiple sclerosis with chronic respiratory failure with trac heostomy, neurogenic bladder with chronic Brock catheter, dysphagia with G-tube, hyperlipidemia, and history of kidney stones. Patient is bed bound. The patient is a resident of detention [facility]. The patient spiked fever to 101.0 last night at detention facility. Also, the patient' s oxygen saturation was in the 80s, and patient was transferred to [facility]. Patient underwent a chest x-ray with impression of interval development of the medial r ight lower lobe and inferior lingula infiltrates compared to the study of 03/14/2016. Unable to exc lude pneumonia. 2. Borderline cardiac silhouette enlargement. 3. Tracheostomy remains in good po sition. The patient did not have any leukocytosis. Lactic acid was 1.3. Patient's urinalysis was positive for nitrites and leukocyte esterase and few bacteria. The patient was started on broad spe ctrum antibiotics, vancomycin and cefepime for possible healthcare-acquired pneumonia and admitted f or further evaluation and management to telemetry floor. PAST MEDICAL HISTORY: Per HPI. PAST SURGICAL HISTORY: Status post tonsillectomy, status post tracheostomy, status post G-tube plac ement, status post removal of the bladder stones and cystoscopy and right ureteropyeloscopy and lase r lithotripsy, insertion of right ureteral JJ stent and subsequent removal of JJ stent. FAMILY HISTORY: Noncontributory. SOCIAL HISTORY: Patient is a resident of detention facility. The patient denies any tobacco use, denies any alcohol use, denies any illicit drug use. ALLERGIES: PATIENT IS ALLERGIC TO PHENOBARBITAL AND PHENYTOIN. MEDICATIONS: On admission: 1. Lovenox. 2. Lansoprazole. 3. Ambien. 4. Lorazepam. 5. Tricor. 4. Lexapro. 6. Benadryl p.r.n., 7. Coenzyme Q10. 8. Saliva stimulant agent. 9. Florastor. 10. Potassium chloride. 11. Fish oil. 12. Keppra. 13. Boniva. 14. Copaxone. 15. Bentyl. 16. Vitamin D3. 17. Chlorpromazine. 18. Baclofen. 19. . 20. Aspirin. REVIEW OF SYSTEMS: A 12-point review of systems is negative unless what is mentioned in the HPI. P atient denies any nausea, vomiting. Denies any chest pain. PHYSICAL ASSESSMENT: GENERAL: Well-developed, well-nourished male, currently is awake, alert. VITAL SIGNS: Temperature is 98.0, pulse is 82, blood pressure 107/62, respiratory rate 18, oxygen s aturation is 95% on 4 liters nasal cannula. HEENT: Head is atraumatic, normocephalic. Pupils equal and reactive to light and accommodation. O ral mucosa is pink and moist. NECK: Supple. Patient has a tracheostomy at the base of the neck with Passy-[place] valve. CHEST: Scattered rhonchi bilaterally, diminished at the bases. No wheezes noted. CARDIOVASCULAR: Normal S1, S2. No murmurs, gallops, clicks, rubs noted. ABDOMEN: Round, soft, nondistended, nontender. G-tube with intact stoma. There is no guarding or rebound tenderness. GENITOURINARY: Patient has a Brock catheter with yellow urine with slight sediment. EXTREMITIES: There is no edema, clubbing, cyanosis. Pulses equal bilaterally, 2+. MUSCULOSKELETAL: There is bilateral lower extremity muscle wasting. SKIN: There is no rash, petechiae noted. NEUROLOGIC: Patient is awake, alert, and oriented x3. Neurological status at the baseline. LABORATORY DATA: On admission, CBC: White blood cells 8.2, hemoglobin 14.3, hematocrit 43.7, plate lets 240. Chemistry: Sodium 142, potassium 4.1, chloride 102, carbon dioxide 27, anion gap 17, BUN is 16, creatinine 0.79, glucose 122, calcium 9.1. AST is 47, ALT 35, alkaline phosphatase 70. Tro ponin less than 0.012. PT is 14.5, INR is 1.138, PTT is 37.3. ASSESSMENT AND PLAN: 1. Healthcare-acquired pneumonia. Will continue patient on broad-spectrum antibiotics. Obtain spu mariel culture. Dr. Restrepo will be following patient in infectious disease consultation. Dr. Newberry will be following patient in pulmonology consultation. Continue oxygen supplementation and bronchod ilators and pulmonary toilet. 2. Urinary tract infection per urinalysis. Will obtain urine culture. 3. Advanced multiple sclerosis. Continue patient on Copaxone. 4. Dysphagia with G-tube. Continue G-tube feeding, monitor residual. Continue aspiration precauti ons. 5. Neurogenic bladder with chronic Brock catheter. 6. Hyperlipidemia. Continue Tricor. 7. Bedbound status. Continue to assist patient with activities of daily living. Will continue No enox for deep venous thrombosis prophylaxis. Continue Prevacid for peptic ulcer disease prophylaxis . Further recommendations based on clinical course. Plan of care discussed with Dr. Mcguire. Dictated By: TAYA PATINO LOOP TACKER for IGNACIO MCGUIRE MD SR/NTS Conf#: [id number] DID#: [id number]
[2016-05-18] MEDS: VANCOMYCIN 750 MG in SOD CHLORIDE 0.9% 150 ML IVPB SCH (15:17)
--- NOTE | 2016-05-18 17:20 | CONS ---
DATE OF ADMISSION: 05/17/2016 DATE OF CONSULTATION: 05/18/2016 TYPE OF CONSULTATION: Infectious Disease. REASON FOR CONSULTATION: Antibiotic management. HISTORY OF PRESENT ILLNESS: Hammad Solomon is a 65-year-old male who comes in with fever and oxygen de saturation. PROBLEMS INCLUDE: 1. Advanced multiple sclerosis with chronic respiratory failure. He has ventilator-dependent respi ratory failure, status post tracheostomy. 2. Neurogenic bladder with chronic Brock catheter, dysphagia with G-tube placement. 3. Hyperlipidemia. 4. History of kidney stones. Patient spiked a fever to 101 last night at [facility]. Transferred to [facility]. Chest x-ray showed interval development of medial, right lower lobe and inferior lingula inf iltrates compared to the study of 03/14/2016. Unable to exclude pneumonia, borderline cardiac silho uette enlargement and tracheostomy remains in good position. Urinalysis positive for nitrites and l eukocyte esterase and few bacteria. The patient was started on broad spectrum antibiotics, vancomyc in and cefepime for healthcare-associated pneumonia and admitted for further evaluation. PAST SURGICAL PROBLEMS: Include: 1. Status post T and A. 2. Status post tracheostomy. 3. Status post G-tube placement. 4. Status post removal of bladder stones and cystoscopy and right ureteral pyeloscopy and laser lit hotripsy. 5. Insertion of right ureteral JJ stent and subsequent removal of the JJ stent. ALLERGIES: THE PATIENT ALSO IS ALLERGIC TO PHENOBARBITAL AND PHENYTOIN. FAMILY HISTORY: Noncontributory. SOCIAL HISTORY: He does not smoke, drink or abuse drugs. MEDICATIONS: Per chart. REVIEW OF SYSTEMS: As per HPI. PHYSICAL EXAMINATION: GENERAL: The patient is a well-developed, well-nourished male who is alert, responsive, in no acute distress. VITAL SIGNS: Stable. He is afebrile. SKIN: Without generalized rash. HEENT: Within normal limits. NECK: Supple. Tracheostomy in place. He has a Passy-Liz valve. LYMPH NODES: None palpable. CHEST: Decreased breath sounds at the bases with scattered rhonchi bilaterally HEART: Without murmur or gallop. ABDOMEN: Soft, nontender. G-tube in place without organosplenomegaly or masses. EXTREMITIES: Without cyanosis, clubbing, or edema. RECTAL AND GENITAL: Deferred. NEUROLOGIC: No focal neurological abnormalities. ANCILLARY LABORATORY DATA: Shows a white count of 8.2, H and H of 14.3 and 43.7, platelet count 240 ,000. BUN and creatinine 16/0.79. AST of 47, ALT 35, alkaline phosphatase 70. IMPRESSION AND PLAN: The patient has healthcare-associated pneumonia. He is on vancomycin and cefe pime. His urine so far is growing gram-negative rods greater than 10 to the 5th. Chest x-ray show ed interval development of medial and right lower lobe and inferior lingular infiltrates compared to the study of 03/14/2016, unable to exclude pneumonia. Consider further followup evaluation of trac heostomy in good position. The patient has both pneumonia and urinary tract infection. He was see n in consultation by Dr. Onofre of pulmonary. The patient is paraplegic, able to move his upper ext remities to some extent. I am going to check to see if we have any sputum ordered. Respiratory cul tures were done. Blood cultures and urine cultures are pending. We will be happy to follow in his care. Dictated By: JOE TINOCO MD, JD/DORON Conf#: [id number] DID#: [id number]
[2016-05-18] MEDS: FENOFIBRATE 145 MG TAB GTB SCH (21:31)
[2016-05-18] MEDS: CEFEPIME 1GM/50 ML (PMX) 50 ML IVPB SCH (21:40)
[2016-05-18] MEDS: LORAZEPAM 1 MG TAB GTB SCH (21:40)
[2016-05-18] MEDS: ZOLPIDEM 5 MG TAB GTB PRN (23:54)
[2016-05-19] VITALS (14 sets, daily range): BP systolic 102–124; BP diastolic 52–73; PULSE 8–165; RESP 15–18
[2016-05-19] MEDS: [UNRECOGNIZED DRUG - OTHER] MM SCH ×4 (00:36→16:58)
[2016-05-19] MEDS: E LYTES MM SCH ×4 (00:36→16:58)
[2016-05-19] MEDS: ALBUTEROL/IPRATROPIUM (NEB) 3 ML AMP HHN SCH ×4 (01:55→19:31)
[2016-05-19] MEDS: VANCOMYCIN 750 MG in SOD CHLORIDE 0.9% 150 ML IVPB SCH ×2 (03:00→15:12)
[2016-05-19] MEDS: LANSOPRAZOLE 30 MG CAP GTB SCH (05:11)
[2016-05-19 07:56] LABS: ADD SCAN DIFF NO
[2016-05-19 07:59] LABS: BASOPHILS % 0.2 % (0.0-2.0); EOSINOPHILS # 0.2 10^3/ul (0.0-0.5); EOSINOPHILS % 2.3 % (0.0-7.0); HEMATOCRIT 38.7 % (42.0-52.0); HEMOGLOBIN 12.1 g/dl (14.0-18.0); LYMPHOCYTES % 11.7 % (15.0-51.0); MEAN CORPUSCULAR HEMOGLOBIN 30.2 pg (29.0-33.0); MEAN CORPUSCULAR HGB CONC 31.3 g/dl (32.0-37.0); MEAN CORPUSCULAR VOLUME 96.5 fl (82.0-101.0); MEAN PLATELET VOLUME 12.9 fl (7.4-10.4); MONOCYTE # 0.7 10^3/ul (0.3-0.9); MONOCYTES % 8.7 % (0.0-11.0); NEUTROPHIL # 6.2 10^3/ul (1.6-7.5); NEUTROPHILS % 76.7 % (39.0-77.0); PLATELET COUNT 209 10^3/UL (140-415); RED BLOOD COUNT 4.01 10^6/ul (4.70-6.10); RED CELL DISTRIBUTION WIDTH 13.6 % (11.5-14.5); WHITE BLOOD COUNT 8.1 10^3/ul (4.8-10.8)
[2016-05-19] MEDS: GLATIRAMER ACETATE 40 MG XX SCH ×3 (08:00→15:14)
[2016-05-19] MEDS: CEFEPIME 1GM/50 ML (PMX) 50 ML IVPB SCH ×2 (08:07→21:35)
[2016-05-19] MEDS: FISH OIL 1,000 MG CAP PO SCH (08:08)
[2016-05-19] MEDS: SACCHAROMYCES BOULARDII 250 MG CAP GTB SCH ×2 (08:08→21:36)
[2016-05-19] MEDS: DICYCLOMINE 10 MG CAP GTB SCH ×2 (08:08→21:36)
[2016-05-19] MEDS: BACLOFEN 10 MG TAB GTB SCH ×4 (08:09→21:36)
[2016-05-19] MEDS: CHOLECALCIFEROL 2,000 UNIT CAP GTB SCH (08:09)
[2016-05-19] MEDS: ESCITALOPRAM 10 MG TAB GTB SCH (08:09)
[2016-05-19] MEDS: METHENAMINE 1 GM TAB GTB SCH ×2 (08:09→21:00)
[2016-05-19] MEDS: ASPIRIN 81 MG TAB GTB SCH (08:10)
[2016-05-19] MEDS: POTASSIUM CHLORIDE 20 MEQ POWDER FOR ORAL SOLN GTB SCH (08:10)
[2016-05-19] MEDS: CHLORPROMAZINE 10 MG TAB GTB SCH ×2 (08:11→21:36)
[2016-05-19] MEDS: LEVETIRACETAM (100 MG/ML) 5ML CUP GTB SCH ×2 (08:12→21:36)
[2016-05-19] MEDS: ENOXAPARIN 40 MG/0.4 ML SYG SC SCH (08:16)
[2016-05-19 08:22] LABS: POTASSIUM 3.4 mmol/L (3.5-5.1)
[2016-05-19 08:24] LABS: CREATININE 0.64 mg/dl (0.61-1.24)
[2016-05-19 08:25] LABS: CALCIUM 8.7 mg/dl (8.4-10.2)
--- NOTE | 2016-05-19 08:52 | RADRPT ---
PROCEDURE: XR Chest. CLINICAL INDICATION: 65-year-old male with pneumonia. TECHNIQUE: Single frontal view of the chest was obtained COMPARISON: Chest x-ray 05/17/2016 10:49 p.m. FINDINGS: The soft tissues are normal. There are degenerative osteophytes in the thoracic spine. A tracheost huma tube is well-positioned at T4-5. There is bilateral apical pleural scarring. The heart is mild ly enlarged. The cardiomediastinal silhouette, pulmonary vasculature and hilar structures are hanna l. There is ectasia of the less aorta. There is interval development of plate-like atelectasis in th e left lower lobe and new consolidative infiltrate in the right lower lobe. The costophrenic angles are normal. IMPRESSION: 1. Worsening right lower lobe infiltrate with new subsegmental atelectasis in the left lower lung fi eld. 2. Bilateral apical pleural scarring. 3. The tracheostomy tube is in good position near T4-5. 4. Borderline cardiomegaly. RPTAT:AAJJ Physician Bi Date Time Electronically viewed and signed by Physician Bi on 05/19/2016 08:52 PAOLA/
--- NOTE | 2016-05-19 11:24 | CONS ---
Date/Time of Note Date/Time of Note DATE: 05/19/16 TIME: 11:21 Assessment/Plan Assessment/Plan Additional Assessment/Plan Urine culture is growing gram-negative rods. ID is pending. Chest x-ray was reviewed from today which is showing a right lower lobe infiltrate. Assessment and recommendations; 1. Patient admitted with UTI and right lower lobe pneumonia is responding well to current treatment regimen. 2. Chronic respiratory failure patient however maintained on tracheostomy with Passy-Liz valve. 3. History of multiple sclerosis with paraplegia. 4. History of multiple episodes of UTI as well as pneumonia. Continue current treatment. Further antibiotic adjustment to be done once ID and sensitivity of the offending organism is obtained. Consultation Date/Type/Reason Admit Date/Time May 18, 2016 at 12:33 Initial Consult Date 05/18/16 Type of Consultation: Pulmonary 24 HR Interval Summary Free Text/Dictation Patient condition stable. Denies any chest congestion, fever, chills. Any abdominal pain, nausea vomiting. General examination; elderly male, currently in no distress. Awake and alert. Patient maintained on Passy-Venus valve via tracheostomy. Exam/Review of Systems Vital Signs Vitals Vital Signs Date Time Temp Pulse Resp B/P Pulse Ox O2 Delivery O2 Flow Rate FiO2 05/19/16 11:09 98.2 78 18 106/73 95 05/19/16 08:42 Nasal Cannula 4.0 05/18/16 03:24 33 Intake and Output 05/18/16 05/18/16 05/19/16 15:00 23:00 07:00 Intake Total 400 ml 800 ml Output Total 450 ml 300 ml Balance -50 ml 500 ml Exam HEENT examination; supple neck, no JVD. No lymphadenopathy. Midline trachea. Pharynx is clear. Fair dentition. Pupils are midsize and reactive to light. Tracheostomy in place with clean insertion site. Passy-Venus valve in place. Chest examination; scattered crackles bilaterally. S1-S2 audible, no murmurs. Regular rhythm. Abdomen examination; soft, nondistended. No organomegaly. G-tube in place. Bowel sounds audible. Extremity examination; no peripheral edema. CREDENTIALING MANAGER examination : patient has paraplegia and able to move upper extremities to a moderate extent. Results Result Diagram: 05/19/16 0659 05/19/16 0700 Results 24 hrs Laboratory Tests Test 05/19/16 06:59 05/19/16 07:00 Basophils # 0.0 Basophils % 0.2 Eosinophils # 0.2 Eosinophils % 2.3 Hematocrit 38.7 L Hemoglobin 12.1 L Lymphocytes # 1.0 Lymphocytes % 11.7 L Mean Corpuscular Hemoglobin 30.2 Mean Corpuscular Hemoglobin Concent 31.3 L Mean Corpuscular Volume 96.5 Mean Platelet Volume 12.9 H Monocytes # 0.7 Monocytes % 8.7 Neutrophils # 6.2 Neutrophils % 76.7 Nucleated Red Blood Cells # 0.0 Nucleated Red Blood Cells % 0.0 Platelet Count 209 Red Blood Count 4.01 L Red Cell Distribution Width 13.6 White Blood Count 8.1 Anion Gap 14 Blood Urea Nitrogen 17 Calcium Level 8.7 Carbon Dioxide Level 29 Chloride Level 104 Creatinine 0.64 Glucose Level 92 Potassium Level 3.4 L Sodium Level 144 Medications Medications Current Medications Baclofen (Lioresal) 20 mg QID GTB Last administered on 05/19/16 08:09; Admin Dose 20 MG; Start 05/18/16 at 09:00 Chlorpromazine (Thorazine) 10 mg Q12 GTB Last administered on 05/18/16 21:31; Admin Dose 10 MG; Start 05/18/16 at 09:00 Cholecalciferol (Vitamin D) 2,000 unit DAILY GTB Last administered on 05/19/16 08:09; Admin Dose 2,000 UNIT; Start 05/18/16 at 09:00 Dicyclomine HCl (Bentyl) 10 mg BID GTB Last administered on 05/19/16 08:08; Admin Dose 10 MG; Start 05/18/16 at 09:00 Diphenhydramine HCl (Benadryl) 25 mg DAILY PRN GTB ITCHING; Start 05/18/16 at 04 :30 Enoxaparin Sodium (Lovenox) 40 mg DAILY SC Last administered on 05/19/16 08:16 ; Admin Dose 40 MG; Start 05/18/16 at 09:00 Escitalopram Oxalate (Lexapro) 10 mg DAILY GTB Last administered on 05/19/16 08 :09; Admin Dose 10 MG; Start 05/18/16 at 09:00 Fenofibrate (Tricor) 145 mg QHS GTB Last administered on 05/18/16 21:31; Admin Dose 145 MG; Start 05/18/16 at 21:00 Lansoprazole (Prevacid) 30 mg DAILY@06 GTB Last administered on 05/19/16 05:11 ; Admin Dose 30 MG; Start 05/18/16 at 06:00 Lorazepam (Ativan) 1 mg HS GTB Last administered on 05/18/16 21:40; Admin Dose 1 MG; Start 05/18/16 at 21:00 Methenamine (Hiprex) 1 gm BID GTB Last administered on 05/19/16 08:09; Admin Dose 1 GM; Start 05/18/16 at 09:00 Fish Oil (Fish Oil) 1,000 mg DAILY PO Last administered on 05/19/16 08:08; Admin Dose 1,000 MG; Start 05/18/16 at 09:00 Saccharomyces Boulardii (Florastor) 250 mg BID GTB Last administered on 08:08; Admin Dose 250 MG; Start 05/18/16 at 09:00 Zolpidem Tartrate (Ambien) 5 mg QHS PRN GTB INSOMNIA Last administered on 23:54; Admin Dose 5 MG; Start 05/18/16 at 04:30 Miscellaneous Information 40 mg MON,WED,FRI SQ ; Start 05/18/16 at 04:30; Status UNV Miscellaneous Information 1 tbs Q6 MM ; Start 05/18/16 at 06:00; Status UNV Levetiracetam (Keppra Liquid) 1,000 mg BID GTB Last administered on 05/19/16 08 :12; Admin Dose 1,000 MG; Start 05/18/16 at 09:00 Potassium Chloride (Potassium Chloride Pwd/Soln) 20 meq DAILY GTB Last administered on 05/19/16 08:10; Admin Dose 20 MEQ; Start 05/18/16 at 09:00 Aspirin (Aspirin) 81 mg DAILY GTB Last administered on 05/19/16 08:10; Admin Dose 81 MG; Start 05/18/16 at 09:00 Miscellaneous Information (*Order Clarification Bulletin) Ibandronate Sodium ( Boniva) 3 ... Q8H XX ; Start 05/18/16 at 08:00 Miscellaneous Information Glatiramer Acetate (Copaxone)... Q8H XX ; Start at 08:00 Cefepime HCl 50 ml @ 100 mls/hr Q12 IVPB Last administered on 05/19/16 08:07; Admin Dose 100 MLS/HR; Start 05/18/16 at 21:00 Vancomycin HCl/ Sodium Chloride (Vancocin/NS) 150 ml @ 75 mls/hr Q12H IVPB Last administered on 05/19/16 03:00; Admin Dose 75 MLS/HR; Start 05/18/16 at 14: 30 Miscellaneous Information (*Rx Drug Level Order Reminder*) VANCO TROUGH @ 1, 330 ON... ONCE ONCE XX ; Start 05/19/16 at 13:30; Stop 05/19/16 at 13:31 BEN AVALOS May 19, 2016 11:24
--- NOTE | 2016-05-19 13:53 | PN ---
DATE: 05/19/2016 INFECTIOUS DISEASE PROGRESS NOTE SUBJECTIVE: No acute events overnight. The patient is alert, looks comfortable. Denies pain, no f ever. at bedside. WBC today 8.1, platelets 209, neutrophils 76.7, no bands. BUN 17, creatini ne 0.64. MICROBIOLOGY: Blood cultures remain negative. Urine culture growing gram-negative jeremy. Sputum cul ture growing gram-negative rods. INDWELLINGS: Trach, PEG, Brock. DIAGNOSTICS: Chest x-ray revealed worsening right lower lobe infiltrate. ANTIMICROBIALS: The patient is on: 1. Vancomycin. 2. Cefepime. PHYSICAL EXAMINATION: GENERAL: This is a chronically ill-appearing, elderly man who is awake, in no distress. HEENT: Head atraumatic, normocephalic. Sclerae anicteric. Buccal mucosa dry. NECK: Supple. Tracheostomy present. CHEST: Rise symmetrical. Breath sounds diminished to bases. HEART: S1, S2. ABDOMEN: Soft, bowel tones present. EXTREMITIES: No cyanosis. ASSESSMENT: 1. Recurrent pneumonia, possibly aspiration. 2. Urinary tract infection. 3. History of kidney stones status post ureteroscopy and laser lithotripsy in the past. 4. Advanced multiple sclerosis. PLAN: The patient remains stable on appropriate antimicrobials. Final cultures pending. He is kevin ng seen by pulmonary team. Continue present care. Dictated By: BIANCA RUBIO DIRECTOR TEEN POST for JOE COULTER/DORON Conf#: [id number] DID#: [id number]
--- NOTE | 2016-05-19 16:05 | PN ---
Date/Time of Note Date/Time of Note DATE: 05/19/16 TIME: 16:00 Assessment/Plan VTE Prophylaxis VTE Prophylaxis Intervention: SCD's Lines/Catheters IV [facility] Type ([facility] Peripheral IV Central line still needed: Yes Urinary Cath still in place: Yes Reason Cath still needed: urinary retention Assessment/Plan Chief Complaint/Hosp Course ASSESSMENT AND PLAN: 1. Healthcare-acquired pneumonia. F/up on sputum culture. Dr. Restrepo is following patient in infectious disease consultation. Dr. Newberry is following patient in pulmonology consultation. Continue oxygen supplementation and bronchodilators and pulmonary toilet. 2. Urinary tract infection per urinalysis. F/up on final urine culture. 3. Advanced multiple sclerosis. Continue patient on Copaxone. 4. Dysphagia with G-tube. Continue G-tube feeding, monitor residual. Continue aspiration precautions. 5. Neurogenic bladder with chronic Brock catheter. 6. Hyperlipidemia. Continue Tricor. 7. Bedbound status. Continue to assist patient with activities of daily living. Continue Lovenox for deep venous thrombosis prophylaxis. Continue Prevacid for peptic ulcer disease prophylaxis. Further recommendations based on clinical course. Plan of care discussed with Dr. Brown. Problems: Subjective 24 Hr Interval Summary Free Text/Dictation Patient is comfortable on supplemental oxygen, denies any fever nausea vomiting. Exam/Review of Systems Vital Signs Vitals Vital Signs Date Time Temp Pulse Resp B/P Pulse Ox O2 Delivery O2 Flow Rate FiO2 05/19/16 14:58 98.0 78 18 105/65 95 05/19/16 13:17 Nasal Cannula 4.0 05/18/16 03:24 33 Intake and Output 05/18/16 05/18/16 05/19/16 15:00 23:00 07:00 Intake Total 400 ml 800 ml Output Total 450 ml 300 ml Balance -50 ml 500 ml Exam PHYSICAL ASSESSMENT: GENERAL: Well-developed, well-nourished male, currently is awake, alert. HEENT: Head is atraumatic, normocephalic. PERRLA. NECK: Supple. Patient has a tracheostomy at the base of the neck with Passy- [place] valve. CHEST: Scattered rhonchi bilaterally, diminished at the bases. No wheezes noted. CARDIOVASCULAR: Normal S1, S2. No murmurs, gallops, clicks, rubs noted. ABDOMEN: Round, soft, nondistended, nontender. G-tube with intact stoma. There is no guarding or rebound tenderness. GENITOURINARY: Patient has a Brock catheter with yellow urine with slight sediment. EXTREMITIES: There is no edema, clubbing, cyanosis. Pulses equal bilaterally, 2+. MUSCULOSKELETAL: There is bilateral lower extremity muscle wasting. SKIN: There is no rash, petechiae noted. NEUROLOGIC: Patient is awake, alert, and oriented x3. Neurological status at the baseline. Results Result Diagram: 05/19/16 0659 05/19/16 0700 Results 24 hrs Laboratory Tests Test 05/19/16 06:59 05/19/16 07:00 05/19/16 13:40 Basophils # 0.0 Basophils % 0.2 Eosinophils # 0.2 Eosinophils % 2.3 Hematocrit 38.7 L Hemoglobin 12.1 L Lymphocytes # 1.0 Lymphocytes % 11.7 L Mean Corpuscular Hemoglobin 30.2 Mean Corpuscular Hemoglobin Concent 31.3 L Mean Corpuscular Volume 96.5 Mean Platelet Volume 12.9 H Monocytes # 0.7 Monocytes % 8.7 Neutrophils # 6.2 Neutrophils % 76.7 Nucleated Red Blood Cells # 0.0 Nucleated Red Blood Cells % 0.0 Platelet Count 209 Red Blood Count 4.01 L Red Cell Distribution Width 13.6 White Blood Count 8.1 Anion Gap 14 Blood Urea Nitrogen 17 Calcium Level 8.7 Carbon Dioxide Level 29 Chloride Level 104 Creatinine 0.64 Glucose Level 92 Potassium Level 3.4 L Sodium Level 144 Vancomycin Level Trough 6.4 L Medications Medications Current Medications Baclofen (Lioresal) 20 mg QID GTB Last administered on 05/19/16 12:24; Admin Dose 20 MG; Start 05/18/16 at 09:00 Chlorpromazine (Thorazine) 10 mg Q12 GTB Last administered on 05/18/16 21:31; Admin Dose 10 MG; Start 05/18/16 at 09:00 Cholecalciferol (Vitamin D) 2,000 unit DAILY GTB Last administered on 05/19/16 08:09; Admin Dose 2,000 UNIT; Start 05/18/16 at 09:00 Dicyclomine HCl (Bentyl) 10 mg BID GTB Last administered on 05/19/16 08:08; Admin Dose 10 MG; Start 05/18/16 at 09:00 Diphenhydramine HCl (Benadryl) 25 mg DAILY PRN GTB ITCHING; Start 05/18/16 at 04 :30 Enoxaparin Sodium (Lovenox) 40 mg DAILY SC Last administered on 05/19/16 08:16 ; Admin Dose 40 MG; Start 05/18/16 at 09:00 Escitalopram Oxalate (Lexapro) 10 mg DAILY GTB Last administered on 05/19/16 08 :09; Admin Dose 10 MG; Start 05/18/16 at 09:00 Fenofibrate (Tricor) 145 mg QHS GTB Last administered on 05/18/16 21:31; Admin Dose 145 MG; Start 05/18/16 at 21:00 Lansoprazole (Prevacid) 30 mg DAILY@06 GTB Last administered on 05/19/16 05:11 ; Admin Dose 30 MG; Start 05/18/16 at 06:00 Lorazepam (Ativan) 1 mg HS GTB Last administered on 05/18/16 21:40; Admin Dose 1 MG; Start 05/18/16 at 21:00 Methenamine (Hiprex) 1 gm BID GTB Last administered on 05/19/16 08:09; Admin Dose 1 GM; Start 05/18/16 at 09:00 Fish Oil (Fish Oil) 1,000 mg DAILY PO Last administered on 05/19/16 08:08; Admin Dose 1,000 MG; Start 05/18/16 at 09:00 Saccharomyces Boulardii (Florastor) 250 mg BID GTB Last administered on 08:08; Admin Dose 250 MG; Start 05/18/16 at 09:00 Zolpidem Tartrate (Ambien) 5 mg QHS PRN GTB INSOMNIA Last administered on 23:54; Admin Dose 5 MG; Start 05/18/16 at 04:30 Miscellaneous Information 40 mg MON,WED,FRI SQ ; Start 05/18/16 at 04:30; Status UNV Miscellaneous Information 1 tbs Q6 MM ; Start 05/18/16 at 06:00; Status UNV Levetiracetam (Keppra Liquid) 1,000 mg BID GTB Last administered on 05/19/16 08 :12; Admin Dose 1,000 MG; Start 05/18/16 at 09:00 Potassium Chloride (Potassium Chloride Pwd/Soln) 20 meq DAILY GTB Last administered on 05/19/16 08:10; Admin Dose 20 MEQ; Start 05/18/16 at 09:00 Aspirin (Aspirin) 81 mg DAILY GTB Last administered on 05/19/16 08:10; Admin Dose 81 MG; Start 05/18/16 at 09:00 Miscellaneous Information (*Order Clarification Bulletin) Ibandronate Sodium ( Boniva) 3 ... Q8H XX ; Start 05/18/16 at 08:00 Miscellaneous Information Glatiramer Acetate (Copaxone)... Q8H XX ; Start at 08:00 Cefepime HCl 50 ml @ 100 mls/hr Q12 IVPB Last administered on 05/19/16 08:07; Admin Dose 100 MLS/HR; Start 05/18/16 at 21:00 Vancomycin HCl 750 mg/Sodium Chloride 150 ml @ 75 mls/hr Q12H IVPB Last administered on 05/19/16 15:12; Admin Dose 75 MLS/HR; Start 05/18/16 at 14:30; Stop 05/19/16 at 17:30 Vancomycin HCl/ Sodium Chloride (Vancocin/NS) 250 ml @ 83.333 mls/ hr Q12H IVPB ; Start 05/19/16 at 23:00 TAYA PATINO May 19, 2016 16:05
[2016-05-19] MEDS ORDERED: POTASSIUM CHLORIDE 20 MEQ POWDER FOR ORAL SOLN GTB ONE (16:30)
[2016-05-19] MEDS: LORAZEPAM 1 MG TAB GTB SCH (21:36)
[2016-05-19] MEDS: FENOFIBRATE 145 MG TAB GTB SCH (21:36)
[2016-05-20] VITALS (12 sets, daily range): BP systolic 108–137; BP diastolic 58–80; PULSE 75–87; RESP 15–20
[2016-05-20] MEDS: ZOLPIDEM 5 MG TAB GTB PRN (00:15)
[2016-05-20] MEDS: ALBUTEROL/IPRATROPIUM (NEB) 3 ML AMP HHN SCH ×4 (00:41→19:44)
[2016-05-20] MEDS: VANCOMYCIN 1.25 GM in SOD CHLORIDE 0.9% 250 ML IVPB SCH ×3 (01:53→23:08)
[2016-05-20] MEDS: LANSOPRAZOLE 30 MG CAP GTB SCH (06:49)
[2016-05-20] MEDS: [UNRECOGNIZED DRUG - OTHER] MM SCH ×5 (06:49→23:14)
[2016-05-20] MEDS: E LYTES MM SCH ×5 (06:49→23:14)
[2016-05-20 07:24] LABS: ADD SCAN DIFF NO
[2016-05-20 07:45] LABS: POTASSIUM 3.7 mmol/L (3.5-5.1)
[2016-05-20 07:47] LABS: CREATININE 0.65 mg/dl (0.61-1.24)
[2016-05-20 07:48] LABS: CALCIUM 8.7 mg/dl (8.4-10.2)
[2016-05-20 07:55] LABS: BASOPHILS % 0.5 % (0.0-2.0); EOSINOPHILS # 0.4 10^3/ul (0.0-0.5); EOSINOPHILS % 6.6 % (0.0-7.0); HEMATOCRIT 35.9 % (42.0-52.0); HEMOGLOBIN 11.7 g/dl (14.0-18.0); LYMPHOCYTES # 0.9 10^3/ul (0.8-2.9); MEAN CORPUSCULAR HEMOGLOBIN 31.1 pg (29.0-33.0); MEAN CORPUSCULAR HGB CONC 32.6 g/dl (32.0-37.0); MEAN CORPUSCULAR VOLUME 95.5 fl (82.0-101.0); MEAN PLATELET VOLUME 12.7 fl (7.4-10.4); MONOCYTE # 0.6 10^3/ul (0.3-0.9); NEUTROPHIL # 4.4 10^3/ul (1.6-7.5); NEUTROPHILS % 69.6 % (39.0-77.0); PLATELET COUNT 203 10^3/UL (140-415); RED BLOOD COUNT 3.76 10^6/ul (4.70-6.10); RED CELL DISTRIBUTION WIDTH 13.3 % (11.5-14.5); WHITE BLOOD COUNT 6.4 10^3/ul (4.8-10.8)
[2016-05-20] MEDS: GLATIRAMER ACETATE 40 MG XX SCH ×3 (08:00→23:58)
[2016-05-20] MEDS: LEVETIRACETAM (100 MG/ML) 5ML CUP GTB SCH ×2 (08:16→21:13)
[2016-05-20] MEDS: CEFEPIME 1GM/50 ML (PMX) 50 ML IVPB SCH (08:16)
[2016-05-20] MEDS: METHENAMINE 1 GM TAB GTB SCH ×2 (08:17→21:13)
[2016-05-20] MEDS: CHOLECALCIFEROL 2,000 UNIT CAP GTB SCH (08:17)
[2016-05-20] MEDS: ASPIRIN 81 MG TAB GTB SCH (08:17)
[2016-05-20] MEDS: BACLOFEN 10 MG TAB GTB SCH ×4 (08:17→21:13)
[2016-05-20] MEDS: DICYCLOMINE 10 MG CAP GTB SCH ×2 (08:17→21:12)
[2016-05-20] MEDS: FISH OIL 1,000 MG CAP PO SCH (08:17)
[2016-05-20] MEDS: ESCITALOPRAM 10 MG TAB GTB SCH (08:17)
[2016-05-20] MEDS: SACCHAROMYCES BOULARDII 250 MG CAP GTB SCH ×2 (08:18→21:12)
[2016-05-20] MEDS: POTASSIUM CHLORIDE 20 MEQ POWDER FOR ORAL SOLN GTB SCH (08:18)
[2016-05-20] MEDS: ENOXAPARIN 40 MG/0.4 ML SYG SC SCH (09:00)
[2016-05-20] MEDS: CHLORPROMAZINE 10 MG TAB GTB SCH ×2 (09:00→21:00)
--- NOTE | 2016-05-20 12:26 | CONS ---
Date/Time of Note Date/Time of Note DATE: 05/20/16 TIME: 12:22 Assessment/Plan Assessment/Plan Additional Assessment/Plan Assessment recommendations; 1. Patient admitted with pneumonia as well as UTI from E. coli with ESBL. 2. History of multiple sclerosis, patient doing fairly well on tracheostomy with Passy-[place] valve. Continue current supportive care. Continue current antibiotics. Consultation Date/Type/Reason Admit Date/Time May 18, 2016 at 12:33 Initial Consult Date 05/18/16 Type of Consultation: Pulmonary 24 HR Interval Summary Free Text/Dictation Patient condition is stable. Complaining of increasing sputum production requiring frequent tracheostomy suctioning. But denies any shortness of breath , chest pain fever or chills. General examination; elderly male, currently in no distress. Awake and alert. Exam/Review of Systems Vital Signs Vitals Vital Signs Date Time Temp Pulse Resp B/P Pulse Ox O2 Delivery O2 Flow Rate FiO2 05/20/16 12:05 75 05/20/16 11:23 98.3 108/58 97 05/20/16 08:05 18 05/20/16 08:00 Nasal Cannula 2.0 05/18/16 03:24 33 Intake and Output 05/19/16 05/19/16 05/20/16 15:00 23:00 07:00 Intake Total 920 ml 800 ml Output Total 1000 ml 800 ml Balance -80 ml 0 ml Exam H EENT examination; supple neck, no JVD. No lymphadenopathy. Midline trachea. Tracheostomy in place. Patient has a Passy-[place] valve in place. Chest examination; diminished breath sounds in lung bases bilaterally upper lobes are clear. S1-S2 audible, no murmurs. Regular rhythm. Abdomen examination; soft, nondistended. G-tube in place. Bowel sounds audible. Extremity examination; no peripheral edema. 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 Results Result Diagram: 05/20/16 0632 05/20/16 0632 Results 24 hrs Laboratory Tests Test 05/19/16 13:40 05/20/16 06:32 Vancomycin Level Trough 6.4 L Anion Gap 15 Basophils # 0.0 Basophils % 0.5 Blood Urea Nitrogen 15 Calcium Level 8.7 Carbon Dioxide Level 29 Chloride Level 102 Creatinine 0.65 Eosinophils # 0.4 Eosinophils % 6.6 Glucose Level 92 Hematocrit 35.9 L Hemoglobin 11.7 L Lymphocytes # 0.9 Lymphocytes % 14.0 L Mean Corpuscular Hemoglobin 31.1 Mean Corpuscular Hemoglobin Concent 32.6 Mean Corpuscular Volume 95.5 Mean Platelet Volume 12.7 H Monocytes # 0.6 Monocytes % 9.0 Neutrophils # 4.4 Neutrophils % 69.6 Nucleated Red Blood Cells # 0.0 Nucleated Red Blood Cells % 0.0 Platelet Count 203 Potassium Level 3.7 Red Blood Count 3.76 L Red Cell Distribution Width 13.3 Sodium Level 142 White Blood Count 6.4 # Medications Medications Current Medications Baclofen (Lioresal) 20 mg QID GTB Last administered on 05/20/16 08:17; Admin Dose 20 MG; Start 05/18/16 at 09:00 Chlorpromazine (Thorazine) 10 mg Q12 GTB Last administered on 05/19/16 21:36; Admin Dose 10 MG; Start 05/18/16 at 09:00 Cholecalciferol (Vitamin D) 2,000 unit DAILY GTB Last administered on 05/20/16 08:17; Admin Dose 2,000 UNIT; Start 05/18/16 at 09:00 Dicyclomine HCl (Bentyl) 10 mg BID GTB Last administered on 05/20/16 08:17; Admin Dose 10 MG; Start 05/18/16 at 09:00 Diphenhydramine HCl (Benadryl) 25 mg DAILY PRN GTB ITCHING; Start 05/18/16 at 04 :30 Enoxaparin Sodium (Lovenox) 40 mg DAILY SC Last administered on 05/20/16 09:00 ; Admin Dose 40 MG; Start 05/18/16 at 09:00 Escitalopram Oxalate (Lexapro) 10 mg DAILY GTB Last administered on 05/20/16 08 :17; Admin Dose 10 MG; Start 05/18/16 at 09:00 Fenofibrate (Tricor) 145 mg QHS GTB Last administered on 05/19/16 21:36; Admin Dose 145 MG; Start 05/18/16 at 21:00 Lansoprazole (Prevacid) 30 mg DAILY@06 GTB Last administered on 05/20/16 06:49 ; Admin Dose 30 MG; Start 05/18/16 at 06:00 Lorazepam (Ativan) 1 mg HS GTB Last administered on 05/19/16 21:36; Admin Dose 1 MG; Start 05/18/16 at 21:00 Methenamine (Hiprex) 1 gm BID GTB Last administered on 05/20/16 08:17; Admin Dose 1 GM; Start 05/18/16 at 09:00 Fish Oil (Fish Oil) 1,000 mg DAILY PO Last administered on 05/20/16 08:17; Admin Dose 1,000 MG; Start 05/18/16 at 09:00 Saccharomyces Boulardii (Florastor) 250 mg BID GTB Last administered on 08:18; Admin Dose 250 MG; Start 05/18/16 at 09:00 Zolpidem Tartrate (Ambien) 5 mg QHS PRN GTB INSOMNIA Last administered on 00:15; Admin Dose 5 MG; Start 05/18/16 at 04:30 Miscellaneous Information 40 mg MON,WED,FRI SQ ; Start 05/18/16 at 04:30; Status UNV Miscellaneous Information 1 tbs Q6 MM ; Start 05/18/16 at 06:00; Status UNV Levetiracetam (Keppra Liquid) 1,000 mg BID GTB Last administered on 05/20/16 08 :16; Admin Dose 1,000 MG; Start 05/18/16 at 09:00 Potassium Chloride (Potassium Chloride Pwd/Soln) 20 meq DAILY GTB Last administered on 05/20/16 08:18; Admin Dose 20 MEQ; Start 05/18/16 at 09:00 Aspirin (Aspirin) 81 mg DAILY GTB Last administered on 05/20/16 08:17; Admin Dose 81 MG; Start 05/18/16 at 09:00 Miscellaneous Information (*Order Clarification Bulletin) Ibandronate Sodium ( Boniva) 3 ... Q8H XX ; Start 05/18/16 at 08:00 Miscellaneous Information Glatiramer Acetate (Copaxone)... Q8H XX ; Start at 08:00 Vancomycin HCl 1.25 gm/Sodium Chloride 250 ml @ 83.333 mls/ hr Q12H IVPB Last administered on 05/20/16 11:15; Admin Dose 83.333 MLS/HR; Start 05/19/16 at 23:00 Ertapenem/Sodium Chloride (Invanz/NS) 100 ml @ 200 mls/hr Q24H IVPB ; Start 05/20/16 at 14:00 Miscellaneous Information (*Rx Drug Level Order Reminder*) VANCO TROUGH @ 1, 000 ON... ONCE ONCE XX ; Start 05/21/16 at 10:00; Stop 05/21/16 at 10:01 BEN AVALOS May 20, 2016 12:26
--- NOTE | 2016-05-20 12:49 | PN ---
DATE: 05/20/2016 INFECTIOUS DISEASE PROGRESS NOTE SUBJECTIVE: No events overnight. The patient is lying comfortably in bed, no fevers. LABORATORY DATA: WBC 6.4, no shift, no bands. BUN 15, creatinine 0.65. MICROBIOLOGY: Urine culture growing E coli ESBL and Enterococcus species. E coli ESBL is resistant to cefepime, susceptible to amikacin, nitrofurantoin and Zosyn, also imipenem. Blood culture had been negative. Endotracheal aspirate growing Klebsiella ESBL susceptible to cefepime, imipenem. INDWELLINGS: Trach, Brock, and PEG. ANTIMICROBIALS: The patient is on: 1. IV vancomycin. 2. Cefepime. PHYSICAL EXAMINATION: GENERAL: This is a chronically ill-appearing, elderly man who is alert, in no distress. HEENT: Head atraumatic, normocephalic. Sclerae anicteric. Buccal mucosa dry. NECK: Supple. Tracheostomy present. CHEST: Rise symmetrical. Breath sounds diminished to bases. HEART: S1, S2. ABDOMEN: Soft, bowel sounds present. EXTREMITIES: Without cyanosis. ASSESSMENT: 1. Systemic inflammatory response syndrome. 2. Recurrent polymicrobial urinary tract infection. 3. Healthcare-associated pneumonia. 4. Advanced multiple sclerosis. PLAN: We are going to start the patient on Invanz. Continue vancomycin. Continue present care. Follow recommendations of consultants. Dictated By: BIANCA RUBIO FERRYBOAT CAPTAIN for JOE COULTER/DORON Conf#: [id number] DID#: [id number]
[2016-05-20] MEDS: ERTAPENEM SODIUM 1 GM in SOD CHLORIDE 0.9% 100 ML IVPB SCH (14:49)
--- NOTE | 2016-05-20 18:29 | PN ---
Date/Time of Note Date/Time of Note DATE: 05/20/16 TIME: 18:27 Assessment/Plan VTE Prophylaxis VTE Prophylaxis Intervention: SCD's Lines/Catheters IV [facility] Type [facility] [place] Urinary Cath still in place: Yes Reason Cath still needed: urinary retention Assessment/Plan Chief Complaint/Hosp Course ASSESSMENT AND PLAN: 1. Healthcare-acquired pneumonia. Dr. Restrepo is following patient in infectious disease consultation. Dr. Newberry is following patient in pulmonology consultation. Continue oxygen supplementation and bronchodilators and pulmonary toilet. 2. Urinary tract infection, urine cultures positive for E. coli ESBL and enterococcus, continue contact isolation, continue abx per ID. 3. Advanced multiple sclerosis. Continue patient on Copaxone. 4. Dysphagia with G-tube. Continue G-tube feeding, monitor residual. Continue aspiration precautions. 5. Neurogenic bladder with chronic Brock catheter. 6. Hyperlipidemia. Continue Tricor. 7. Bedbound status. Continue to assist patient with activities of daily living. Continue Lovenox for deep venous thrombosis prophylaxis. Continue Prevacid for peptic ulcer disease prophylaxis. Further recommendations based on clinical course. Plan of care discussed with Dr. Brown. Problems: Subjective 24 Hr Interval Summary Free Text/Dictation Patient has a large amount of secretions from tracheostomy, denies fever chills , patient tolerates G-tube feeding well. Exam/Review of Systems Vital Signs Vitals Vital Signs Date Time Temp Pulse Resp B/P Pulse Ox O2 Delivery O2 Flow Rate FiO2 05/20/16 16:42 85 05/20/16 16:08 4.0 05/20/16 15:49 98.5 18 119/68 96 05/20/16 14:45 Nasal Cannula 05/18/16 03:24 33 Intake and Output 05/19/16 05/19/16 05/20/16 15:00 23:00 07:00 Intake Total 920 ml 800 ml Output Total 1000 ml 800 ml Balance -80 ml 0 ml Exam PHYSICAL ASSESSMENT: GENERAL: Well-developed, well-nourished male, currently is awake, alert. HEENT: Head is atraumatic, normocephalic. PERRLA. NECK: Supple. Patient has a tracheostomy at the base of the neck with Passy- [place] valve. CHEST: Scattered rhonchi bilaterally, diminished at the bases. No wheezes noted. CARDIOVASCULAR: Normal S1, S2. No murmurs, gallops, clicks, rubs noted. ABDOMEN: Round, soft, nondistended, nontender. G-tube with intact stoma. There is no guarding or rebound tenderness. GENITOURINARY: Patient has a Brock catheter with yellow urine with slight sediment. EXTREMITIES: There is no edema, clubbing, cyanosis. Pulses equal bilaterally, 2+. MUSCULOSKELETAL: There is bilateral lower extremity muscle wasting. SKIN: There is no rash, petechiae noted. NEUROLOGIC: Patient is awake, alert, and oriented x3. Neurological status at the baseline. Results Result Diagram: 05/20/16 0632 05/20/16 0632 Results 24 hrs Laboratory Tests Test 05/20/16 06:32 Anion Gap 15 Basophils # 0.0 Basophils % 0.5 Blood Urea Nitrogen 15 Calcium Level 8.7 Carbon Dioxide Level 29 Chloride Level 102 Creatinine 0.65 Eosinophils # 0.4 Eosinophils % 6.6 Glucose Level 92 Hematocrit 35.9 L Hemoglobin 11.7 L Lymphocytes # 0.9 Lymphocytes % 14.0 L Mean Corpuscular Hemoglobin 31.1 Mean Corpuscular Hemoglobin Concent 32.6 Mean Corpuscular Volume 95.5 Mean Platelet Volume 12.7 H Monocytes # 0.6 Monocytes % 9.0 Neutrophils # 4.4 Neutrophils % 69.6 Nucleated Red Blood Cells # 0.0 Nucleated Red Blood Cells % 0.0 Platelet Count 203 Potassium Level 3.7 Red Blood Count 3.76 L Red Cell Distribution Width 13.3 Sodium Level 142 White Blood Count 6.4 # Medications Medications Current Medications Baclofen (Lioresal) 20 mg QID GTB Last administered on 05/20/16 17:18; Admin Dose 20 MG; Start 05/18/16 at 09:00 Chlorpromazine (Thorazine) 10 mg Q12 GTB Last administered on 05/19/16 21:36; Admin Dose 10 MG; Start 05/18/16 at 09:00 Cholecalciferol (Vitamin D) 2,000 unit DAILY GTB Last administered on 05/20/16 08:17; Admin Dose 2,000 UNIT; Start 05/18/16 at 09:00 Dicyclomine HCl (Bentyl) 10 mg BID GTB Last administered on 05/20/16 08:17; Admin Dose 10 MG; Start 05/18/16 at 09:00 Diphenhydramine HCl (Benadryl) 25 mg DAILY PRN GTB ITCHING; Start 05/18/16 at 04 :30 Enoxaparin Sodium (Lovenox) 40 mg DAILY SC Last administered on 05/20/16 09:00 ; Admin Dose 40 MG; Start 05/18/16 at 09:00 Escitalopram Oxalate (Lexapro) 10 mg DAILY GTB Last administered on 05/20/16 08 :17; Admin Dose 10 MG; Start 05/18/16 at 09:00 Fenofibrate (Tricor) 145 mg QHS GTB Last administered on 05/19/16 21:36; Admin Dose 145 MG; Start 05/18/16 at 21:00 Lansoprazole (Prevacid) 30 mg DAILY@06 GTB Last administered on 05/20/16 06:49 ; Admin Dose 30 MG; Start 05/18/16 at 06:00 Lorazepam (Ativan) 1 mg HS GTB Last administered on 05/19/16 21:36; Admin Dose 1 MG; Start 05/18/16 at 21:00 Methenamine (Hiprex) 1 gm BID GTB Last administered on 05/20/16 08:17; Admin Dose 1 GM; Start 05/18/16 at 09:00 Fish Oil (Fish Oil) 1,000 mg DAILY PO Last administered on 05/20/16 08:17; Admin Dose 1,000 MG; Start 05/18/16 at 09:00 Saccharomyces Boulardii (Florastor) 250 mg BID GTB Last administered on 08:18; Admin Dose 250 MG; Start 05/18/16 at 09:00 Zolpidem Tartrate (Ambien) 5 mg QHS PRN GTB INSOMNIA Last administered on 00:15; Admin Dose 5 MG; Start 05/18/16 at 04:30 Miscellaneous Information 40 mg MON,WED,FRI SQ ; Start 05/18/16 at 04:30; Status UNV Miscellaneous Information 1 tbs Q6 MM ; Start 05/18/16 at 06:00; Status UNV Levetiracetam (Keppra Liquid) 1,000 mg BID GTB Last administered on 3/8/17at 08 :16; Admin Dose 1,000 MG; Start 05/18/16 at 09:00 Potassium Chloride (Potassium Chloride Pwd/Soln) 20 meq DAILY GTB Last administered on 05/20/16 08:18; Admin Dose 20 MEQ; Start 05/18/16 at 09:00 Aspirin (Aspirin) 81 mg DAILY GTB Last administered on 05/20/16 08:17; Admin Dose 81 MG; Start 05/18/16 at 09:00 Miscellaneous Information (*Order Clarification Bulletin) Ibandronate Sodium ( Boniva) 3 ... Q8H XX ; Start 05/18/16 at 08:00 Miscellaneous Information Glatiramer Acetate (Copaxone)... Q8H XX ; Start at 08:00 Vancomycin HCl 1.25 gm/Sodium Chloride 250 ml @ 83.333 mls/ hr Q12H IVPB Last administered on 05/20/16 11:15; Admin Dose 83.333 MLS/HR; Start 05/19/16 at 23:00 Ertapenem/Sodium Chloride (Invanz/NS) 100 ml @ 200 mls/hr Q24H IVPB Last administered on 05/20/16 14:49; Admin Dose 200 MLS/HR; Start 05/20/16 at 14:00 Miscellaneous Information (*Rx Drug Level Order Reminder*) VANCO TROUGH @ 1, 000 ON... ONCE ONCE XX ; Start 05/21/16 at 10:00; Stop 05/21/16 at 10:01 TAYA PATINO May 20, 2016 18:28
[2016-05-20] MEDS: FENOFIBRATE 145 MG TAB GTB SCH (21:00)
[2016-05-20] MEDS: LORAZEPAM 1 MG TAB GTB SCH (23:15)
[2016-05-21] VITALS (12 sets, daily range): BP systolic 111–141; BP diastolic 57–72; PULSE 72–91; RESP 16–18
[2016-05-21 06:08] LABS: ADD SCAN DIFF NO
[2016-05-21] MEDS: LANSOPRAZOLE 30 MG CAP GTB SCH (06:13)
[2016-05-21] MEDS: [UNRECOGNIZED DRUG - OTHER] MM SCH ×4 (06:13→23:49)
[2016-05-21] MEDS: E LYTES MM SCH ×4 (06:13→23:49)
[2016-05-21 06:16] LABS: BASOPHILS % 0.5 % (0.0-2.0); EOSINOPHILS # 0.5 10^3/ul (0.0-0.5); EOSINOPHILS % 7.5 % (0.0-7.0); HEMATOCRIT 35.3 % (42.0-52.0); HEMOGLOBIN 11.7 g/dl (14.0-18.0); LYMPHOCYTES # 1.2 10^3/ul (0.8-2.9); LYMPHOCYTES % 18.2 % (15.0-51.0); MEAN CORPUSCULAR HEMOGLOBIN 31.1 pg (29.0-33.0); MEAN CORPUSCULAR HGB CONC 33.1 g/dl (32.0-37.0); MEAN CORPUSCULAR VOLUME 93.9 fl (82.0-101.0); MEAN PLATELET VOLUME 12.4 fl (7.4-10.4); MONOCYTE # 0.6 10^3/ul (0.3-0.9); MONOCYTES % 9.6 % (0.0-11.0); NEUTROPHIL # 4.1 10^3/ul (1.6-7.5); NEUTROPHILS % 63.9 % (39.0-77.0); PLATELET COUNT 193 10^3/UL (140-415); RED BLOOD COUNT 3.76 10^6/ul (4.70-6.10); RED CELL DISTRIBUTION WIDTH 13.1 % (11.5-14.5); WHITE BLOOD COUNT 6.4 10^3/ul (4.8-10.8)
[2016-05-21 06:49] LABS: POTASSIUM 3.6 mmol/L (3.5-5.1)
[2016-05-21 06:51] LABS: CREATININE 0.6 mg/dl (0.61-1.24)
[2016-05-21] MEDS: GLATIRAMER ACETATE 40 MG XX SCH ×2 (08:00→14:57)
[2016-05-21] MEDS: ESCITALOPRAM 10 MG TAB GTB SCH (08:46)
[2016-05-21] MEDS: ASPIRIN 81 MG TAB GTB SCH (08:46)
[2016-05-21] MEDS: FISH OIL 1,000 MG CAP PO SCH (08:46)
[2016-05-21] MEDS: METHENAMINE 1 GM TAB GTB SCH ×2 (08:46→21:14)
[2016-05-21] MEDS: POTASSIUM CHLORIDE 20 MEQ POWDER FOR ORAL SOLN GTB SCH (08:46)
[2016-05-21] MEDS: LEVETIRACETAM (100 MG/ML) 5ML CUP GTB SCH ×2 (08:46→21:15)
[2016-05-21] MEDS: BACLOFEN 10 MG TAB GTB SCH ×4 (08:47→21:15)
[2016-05-21] MEDS: ENOXAPARIN 40 MG/0.4 ML SYG SC SCH (09:00)
[2016-05-21] MEDS: ALBUTEROL/IPRATROPIUM (NEB) 3 ML AMP HHN SCH ×3 (09:23→20:46)
--- NOTE | 2016-05-21 11:19 | CONS ---
Date/Time of Note Date/Time of Note DATE: 05/21/16 TIME: 11:16 Assessment/Plan Assessment/Plan Additional Assessment/Plan Assessment recommendations; 1. Patient admitted for UTI and sepsis as well as right upper lobe pneumonia from E. coli which is ESBL. 2. History of multiple sclerosis with paraplegia, patient doing fairly well on tracheostomy with Passy-[place] valve. Next Continue current treatment. Patient could potentially benefit from long-term suppressive regimen consisting of Macrobid 100 mg twice daily once off current antibiotic regimen. Consultation Date/Type/Reason Admit Date/Time May 18, 2016 at 12:33 Initial Consult Date 05/18/16 Type of Consultation: Pulmonary 24 HR Interval Summary Free Text/Dictation Patient's condition is stable. Still complains of chest congestion requiring frequent tracheostomy suctioning. Denies any shortness of breath, fever, chills. Denies any nausea vomiting. General exam; elderly male, currently in no distress. Awake and alert. Able to talk to Passy-[place] valve. Exam/Review of Systems Vital Signs Vitals Vital Signs Date Time Temp Pulse Resp B/P Pulse Ox O2 Delivery O2 Flow Rate FiO2 05/21/16 11:15 97.8 86 18 111/57 95 05/21/16 09:24 Nasal Cannula 4.0 05/18/16 03:24 33 Intake and Output 05/20/16 05/20/16 05/21/16 15:00 23:00 07:00 Intake Total 920 ml 1010 ml Output Total 800 ml 1350 ml Balance 120 ml -340 ml Exam HEENT exam; supple neck, no JVD. No lymphadenopathy. Midline trachea. No thyromegaly. Ileostomy placed with clean insertion site. Pharynx is clear with good dentition. Chest examination diminished but clear breath sounds bilaterally. S1-S2 audible , no murmurs. Regular rhythm. Abdomen examination; soft, nontender. Nondistended. No organomegaly, G-tube in place bowel sounds audible. Extremity examination; no peripheral edema. WATER REGISTRAR examination cranial nerves are intact, patient able to move upper extremities to moderate degree, has stable paraplegia. Results Result Diagram: 05/21/16 0555 05/21/16 0555 Results 24 hrs Laboratory Tests Test 05/21/16 05:55 05/21/16 10:03 Anion Gap 14 Basophils # 0.0 Basophils % 0.5 Blood Urea Nitrogen 12 Calcium Level 9.0 Carbon Dioxide Level 31 Chloride Level 101 Creatinine 0.60 L Eosinophils # 0.5 Eosinophils % 7.5 H Glucose Level 102 Hematocrit 35.3 L Hemoglobin 11.7 L Lymphocytes # 1.2 Lymphocytes % 18.2 Mean Corpuscular Hemoglobin 31.1 Mean Corpuscular Hemoglobin Concent 33.1 Mean Corpuscular Volume 93.9 Mean Platelet Volume 12.4 H Monocytes # 0.6 Monocytes % 9.6 Neutrophils # 4.1 Neutrophils % 63.9 Nucleated Red Blood Cells # 0.0 Nucleated Red Blood Cells % 0.0 Platelet Count 193 Potassium Level 3.6 Red Blood Count 3.76 L Red Cell Distribution Width 13.1 Sodium Level 142 White Blood Count 6.4 Vancomycin Level Trough 10.4 Medications Medications Current Medications Baclofen (Lioresal) 20 mg QID GTB Last administered on 05/21/16 08:47; Admin Dose 20 MG; Start 05/18/16 at 09:00 Cholecalciferol (Vitamin D) 2,000 unit DAILY GTB Last administered on 05/20/16 08:17; Admin Dose 2,000 UNIT; Start 05/18/16 at 09:00 Dicyclomine HCl (Bentyl) 10 mg BID GTB Last administered on 05/20/16 21:12; Admin Dose 10 MG; Start 05/18/16 at 09:00 Diphenhydramine HCl (Benadryl) 25 mg DAILY PRN GTB ITCHING; Start 05/18/16 at 04 :30 Enoxaparin Sodium (Lovenox) 40 mg DAILY SC Last administered on 05/21/16 09:00 ; Admin Dose 40 MG; Start 05/18/16 at 09:00 Escitalopram Oxalate (Lexapro) 10 mg DAILY GTB Last administered on 05/21/16 08 :46; Admin Dose 10 MG; Start 05/18/16 at 09:00 Lansoprazole (Prevacid) 30 mg DAILY@06 GTB Last administered on 05/21/16 06:13 ; Admin Dose 30 MG; Start 05/18/16 at 06:00 Lorazepam (Ativan) 1 mg HS GTB Last administered on 05/20/16 23:15; Admin Dose 1 MG; Start 05/18/16 at 21:00 Methenamine (Hiprex) 1 gm BID GTB Last administered on 05/21/16 08:46; Admin Dose 1 GM; Start 05/18/16 at 09:00 Fish Oil (Fish Oil) 1,000 mg DAILY PO Last administered on 05/21/16 08:46; Admin Dose 1,000 MG; Start 05/18/16 at 09:00 Saccharomyces Boulardii (Florastor) 250 mg BID GTB Last administered on 21:12; Admin Dose 250 MG; Start 05/18/16 at 09:00 Zolpidem Tartrate (Ambien) 5 mg QHS PRN GTB INSOMNIA Last administered on 00:15; Admin Dose 5 MG; Start 05/18/16 at 04:30 Miscellaneous Information 40 mg MON,WED,FRI SQ ; Start 05/18/16 at 04:30; Status UNV Miscellaneous Information 1 tbs Q6 MM ; Start 05/18/16 at 06:00; Status UNV Levetiracetam (Keppra Liquid) 1,000 mg BID GTB Last administered on 05/21/16 08 :46; Admin Dose 1,000 MG; Start 05/18/16 at 09:00 Potassium Chloride (Potassium Chloride Pwd/Soln) 20 meq DAILY GTB Last administered on 05/21/16 08:46; Admin Dose 20 MEQ; Start 05/18/16 at 09:00 Aspirin (Aspirin) 81 mg DAILY GTB Last administered on 05/21/16 08:46; Admin Dose 81 MG; Start 05/18/16 at 09:00 Miscellaneous Information (*Order Clarification Bulletin) Ibandronate Sodium ( Boniva) 3 ... Q8H XX ; Start 05/18/16 at 08:00 Miscellaneous Information Glatiramer Acetate (Copaxone)... Q8H XX ; Start at 08:00 Vancomycin HCl 1.25 gm/Sodium Chloride 250 ml @ 83.333 mls/ hr Q12H IVPB Last administered on 05/20/16 23:08; Admin Dose 83.333 MLS/HR; Start 05/19/16 at 23:00 Ertapenem/Sodium Chloride (Invanz/NS) 100 ml @ 200 mls/hr Q24H IVPB Last administered on 05/20/16t 14:49; Admin Dose 200 MLS/HR; Start 05/20/16 at 14:00 BEN AVALOS May 21, 2016 11:18
[2016-05-21] MEDS: VANCOMYCIN 1.25 GM in SOD CHLORIDE 0.9% 250 ML IVPB SCH ×2 (11:35→23:49)
[2016-05-21] MEDS: DICYCLOMINE 10 MG CAP GTB SCH ×2 (11:35→21:14)
[2016-05-21] MEDS: CHOLECALCIFEROL 2,000 UNIT CAP GTB SCH (11:36)
[2016-05-21] MEDS: SACCHAROMYCES BOULARDII 250 MG CAP GTB SCH ×2 (11:36→21:14)
--- NOTE | 2016-05-21 13:34 | CONS ---
Date/Time of Note Date/Time of Note DATE: 05/21/16 TIME: 13:33 Assessment/Plan Assessment/Plan Chief Complaint/Hosp Course SUBJECTIVE: No events overnight. The patient is lying comfortably in bed, no fevers, less secretions MICROBIOLOGY: Urine culture growing E coli ESBL and Enterococcus species. E coli ESBL is resistant to cefepime, susceptible to amikacin, nitrofurantoin and Zosyn, also imipenem. Blood culture had been negative. Endotracheal aspirate growing Klebsiella ESBL susceptible to cefepime, imipenem. INDWELLINGS: Trach, Brock, and PEG. ANTIMICROBIALS: The patient is on: 1. IV vancomycin. 2. Invanz PHYSICAL EXAMINATION: GENERAL: This is a chronically ill-appearing, elderly man who is alert, in no distress. HEENT: Head atraumatic, normocephalic. Sclerae anicteric. Buccal mucosa dry. NECK: Supple. Tracheostomy present. CHEST: Rise symmetrical. Breath sounds diminished to bases. HEART: S1, S2. ABDOMEN: Soft, bowel sounds present. EXTREMITIES: Without cyanosis. ASSESSMENT: 1. Systemic inflammatory response syndrome. 2. Recurrent polymicrobial urinary tract infection. 3. Healthcare-associated pneumonia. 4. Advanced multiple sclerosis. PLAN: Remains stable, continue abx DW pt/ at bedside Problems: Consultation Date/Type/Reason Admit Date/Time May 18, 2016 at 12:33 Initial Consult Date 05/18/16 Type of Consultation: ID Exam/Review of Systems Vital Signs Vitals Vital Signs Date Time Temp Pulse Resp B/P Pulse Ox O2 Delivery O2 Flow Rate FiO2 05/21/16 12:06 79 05/21/16 11:15 97.8 18 111/57 95 05/21/16 09:24 Nasal Cannula 4.0 05/18/16 03:24 33 Intake and Output 05/20/16 05/20/16 05/21/16 15:00 23:00 07:00 Intake Total 920 ml 1010 ml Output Total 800 ml 1350 ml Balance 120 ml -340 ml Results Result Diagram: 05/21/16 0555 05/21/16 0555 Results 24 hrs Laboratory Tests Test 05/21/16 05:55 05/21/16 10:03 Anion Gap 14 Basophils # 0.0 Basophils % 0.5 Blood Urea Nitrogen 12 Calcium Level 9.0 Carbon Dioxide Level 31 Chloride Level 101 Creatinine 0.60 L Eosinophils # 0.5 Eosinophils % 7.5 H Glucose Level 102 Hematocrit 35.3 L Hemoglobin 11.7 L Lymphocytes # 1.2 Lymphocytes % 18.2 Mean Corpuscular Hemoglobin 31.1 Mean Corpuscular Hemoglobin Concent 33.1 Mean Corpuscular Volume 93.9 Mean Platelet Volume 12.4 H Monocytes # 0.6 Monocytes % 9.6 Neutrophils # 4.1 Neutrophils % 63.9 Nucleated Red Blood Cells # 0.0 Nucleated Red Blood Cells % 0.0 Platelet Count 193 Potassium Level 3.6 Red Blood Count 3.76 L Red Cell Distribution Width 13.1 Sodium Level 142 White Blood Count 6.4 Vancomycin Level Trough 10.4 Medications Medications Current Medications Baclofen (Lioresal) 20 mg QID GTB Last administered on 05/21/16 11:36; Admin Dose 20 MG; Start 05/18/16 at 09:00 Cholecalciferol (Vitamin D) 2,000 unit DAILY GTB Last administered on 05/21/16 11:36; Admin Dose 2,000 UNIT; Start 05/18/16 at 09:00 Dicyclomine HCl (Bentyl) 10 mg BID GTB Last administered on 05/21/16 11:35; Admin Dose 10 MG; Start 05/18/16 at 09:00 Diphenhydramine HCl (Benadryl) 25 mg DAILY PRN GTB ITCHING; Start 05/18/16 at 04 :30 Enoxaparin Sodium (Lovenox) 40 mg DAILY SC Last administered on 05/21/16 09:00 ; Admin Dose 40 MG; Start 05/18/16 at 09:00 Escitalopram Oxalate (Lexapro) 10 mg DAILY GTB Last administered on 05/21/16 08 :46; Admin Dose 10 MG; Start 05/18/16 at 09:00 Lansoprazole (Prevacid) 30 mg DAILY@06 GTB Last administered on 05/21/16 06:13 ; Admin Dose 30 MG; Start 05/18/16 at 06:00 Lorazepam (Ativan) 1 mg HS GTB Last administered on 05/20/16 23:15; Admin Dose 1 MG; Start 05/18/16 at 21:00 Methenamine (Hiprex) 1 gm BID GTB Last administered on 05/21/16 08:46; Admin Dose 1 GM; Start 05/18/16 at 09:00 Fish Oil (Fish Oil) 1,000 mg DAILY PO Last administered on 05/21/16 08:46; Admin Dose 1,000 MG; Start 05/18/16 at 09:00 Saccharomyces Boulardii (Florastor) 250 mg BID GTB Last administered on 11:36; Admin Dose 250 MG; Start 05/18/16 at 09:00 Zolpidem Tartrate (Ambien) 5 mg QHS PRN GTB INSOMNIA Last administered on 00:15; Admin Dose 5 MG; Start 05/18/16 at 04:30 Miscellaneous Information 40 mg MON,WED,FRI SQ ; Start 05/18/16 at 04:30; Status UNV Miscellaneous Information 1 tbs Q6 MM ; Start 05/18/16 at 06:00; Status UNV Levetiracetam (Keppra Liquid) 1,000 mg BID GTB Last administered on 05/21/16 08 :46; Admin Dose 1,000 MG; Start 05/18/16 at 09:00 Potassium Chloride (Potassium Chloride Pwd/Soln) 20 meq DAILY GTB Last administered on 05/21/16 08:46; Admin Dose 20 MEQ; Start 05/18/16 at 09:00 Aspirin (Aspirin) 81 mg DAILY GTB Last administered on 05/21/16 08:46; Admin Dose 81 MG; Start 05/18/16 at 09:00 Miscellaneous Information (*Order Clarification Bulletin) Ibandronate Sodium ( Boniva) 3 ... Q8H XX ; Start 05/18/16 at 08:00 Miscellaneous Information Glatiramer Acetate (Copaxone)... Q8H XX ; Start at 08:00 Vancomycin HCl 1.25 gm/Sodium Chloride 250 ml @ 83.333 mls/ hr Q12H IVPB Last administered on 05/21/16 11:35; Admin Dose 83.333 MLS/HR; Start 05/19/16 at 23:00 Ertapenem/Sodium Chloride (Invanz/NS) 100 ml @ 200 mls/hr Q24H IVPB Last administered on 05/20/16 14:49; Admin Dose 200 MLS/HR; Start 05/20/16 at 14:00 BIANCA RUBIO NP May 21, 2016 13:34
[2016-05-21] MEDS: ERTAPENEM SODIUM 1 GM in SOD CHLORIDE 0.9% 100 ML IVPB SCH (15:16)
--- NOTE | 2016-05-21 15:30 | PN ---
Date/Time of Note Date/Time of Note DATE: 05/21/16 TIME: 15:29 Assessment/Plan VTE Prophylaxis VTE Prophylaxis Intervention: LMWH Lines/Catheters [facility] Per[facility] IV Urinary Cath still in place: Yes Assessment/Plan Assessment/Plan 1. Healthcare-acquired pneumonia. Dr. Restrepo is following patient in infectious disease consultation. Dr. Newberry is following patient in pulmonology consultation. Continue oxygen supplementation and bronchodilators and pulmonary toilet. 2. Urinary tract infection, urine cultures positive for E. coli ESBL and enterococcus, continue contact isolation, continue abx per ID. 3. Advanced multiple sclerosis. Continue patient on Copaxone. 4. Dysphagia with G-tube. Continue G-tube feeding, monitor residual. Continue aspiration precautions. 5. Neurogenic bladder with chronic Brock catheter. 6. Hyperlipidemia. Continue Tricor. 7. Bedbound status. Continue to assist patient with activities of daily living. Continue Lovenox for deep venous thrombosis prophylaxis. Continue Prevacid for peptic ulcer disease prophylaxis. at bed side, all questions answered, Further recommendations based on clinical course. Plan of care discussed with Dr. Brown. Subjective 24 Hr Interval Summary Constitutional: improved, requiring IVF, requiring O2 Exam/Review of Systems Vital Signs Vitals Vital Signs Date Time Temp Pulse Resp B/P Pulse Ox O2 Delivery O2 Flow Rate FiO2 05/21/16 14:55 75 18 95 Nasal Cannula 4.0 05/21/16 14:22 97.8 127/70 05/18/16 03:24 33 Intake and Output 05/20/16 05/20/16 05/21/16 15:00 23:00 07:00 Intake Total 920 ml 1010 ml Output Total 800 ml 1350 ml Balance 120 ml -340 ml Exam Constitutional: alert, well developed Psych: nl mood/affect Head: atraumatic Eyes: EOMI, nl sclera ENMT: nl external ears & nose Neck: supple Respiratory: clear to auscultation Cardiovascular: regular rate and rhythm Gastrointestinal: non-tender Musculoskeletal: muscle weakness Extremities: normal pulses Neurological: nl mental status Skin: nl turgor Lymph: nontender Results Result Diagram: 05/21/16 0555 05/21/16 0555 Results 24 hrs Laboratory Tests Test 05/21/16 05:55 05/21/16 10:03 Anion Gap 14 Basophils # 0.0 Basophils % 0.5 Blood Urea Nitrogen 12 Calcium Level 9.0 Carbon Dioxide Level 31 Chloride Level 101 Creatinine 0.60 L Eosinophils # 0.5 Eosinophils % 7.5 H Glucose Level 102 Hematocrit 35.3 L Hemoglobin 11.7 L Lymphocytes # 1.2 Lymphocytes % 18.2 Mean Corpuscular Hemoglobin 31.1 Mean Corpuscular Hemoglobin Concent 33.1 Mean Corpuscular Volume 93.9 Mean Platelet Volume 12.4 H Monocytes # 0.6 Monocytes % 9.6 Neutrophils # 4.1 Neutrophils % 63.9 Nucleated Red Blood Cells # 0.0 Nucleated Red Blood Cells % 0.0 Platelet Count 193 Potassium Level 3.6 Red Blood Count 3.76 L Red Cell Distribution Width 13.1 Sodium Level 142 White Blood Count 6.4 Vancomycin Level Trough 10.4 Medications Medications Current Medications Baclofen (Lioresal) 20 mg QID GTB Last administered on 05/21/16 11:36; Admin Dose 20 MG; Start 05/18/16 at 09:00 Cholecalciferol (Vitamin D) 2,000 unit DAILY GTB Last administered on 05/21/16 11:36; Admin Dose 2,000 UNIT; Start 05/18/16 at 09:00 Dicyclomine HCl (Bentyl) 10 mg BID GTB Last administered on 05/21/16 11:35; Admin Dose 10 MG; Start 05/18/16 at 09:00 Diphenhydramine HCl (Benadryl) 25 mg DAILY PRN GTB ITCHING; Start 05/18/16 at 04 :30 Enoxaparin Sodium (Lovenox) 40 mg DAILY SC Last administered on 05/21/16 09:00 ; Admin Dose 40 MG; Start 05/18/16 at 09:00 Escitalopram Oxalate (Lexapro) 10 mg DAILY GTB Last administered on 05/21/16 08 :46; Admin Dose 10 MG; Start 05/18/16 at 09:00 Lansoprazole (Prevacid) 30 mg DAILY@06 GTB Last administered on 05/21/16 06:13 ; Admin Dose 30 MG; Start 05/18/16 at 06:00 Lorazepam (Ativan) 1 mg HS GTB Last administered on 05/20/16 23:15; Admin Dose 1 MG; Start 05/18/16 at 21:00 Methenamine (Hiprex) 1 gm BID GTB Last administered on 05/21/16 08:46; Admin Dose 1 GM; Start 05/18/16 at 09:00 Fish Oil (Fish Oil) 1,000 mg DAILY PO Last administered on 05/21/16 08:46; Admin Dose 1,000 MG; Start 05/18/16 at 09:00 Saccharomyces Boulardii (Florastor) 250 mg BID GTB Last administered on 11:36; Admin Dose 250 MG; Start 05/18/16 at 09:00 Zolpidem Tartrate (Ambien) 5 mg QHS PRN GTB INSOMNIA Last administered on 00:15; Admin Dose 5 MG; Start 05/18/16 at 04:30 Miscellaneous Information 40 mg MON,WED,FRI SQ ; Start 05/18/16 at 04:30; Status UNV Miscellaneous Information 1 tbs Q6 MM ; Start 05/18/16 at 06:00; Status UNV Levetiracetam (Keppra Liquid) 1,000 mg BID GTB Last administered on 05/21/16 08 :46; Admin Dose 1,000 MG; Start 05/18/16 at 09:00 Potassium Chloride (Potassium Chloride Pwd/Soln) 20 meq DAILY GTB Last administered on 05/21/16 08:46; Admin Dose 20 MEQ; Start 05/18/16 at 09:00 Aspirin (Aspirin) 81 mg DAILY GTB Last administered on 05/21/16 08:46; Admin Dose 81 MG; Start 05/18/16 at 09:00 Miscellaneous Information Glatiramer Acetate (Copaxone)... Q8H XX ; Start at 08:00 Vancomycin HCl 1.25 gm/Sodium Chloride 250 ml @ 83.333 mls/ hr Q12H IVPB Last administered on 05/21/16 11:35; Admin Dose 83.333 MLS/HR; Start 05/19/16 at 23:00 Ertapenem/Sodium Chloride (Invanz/NS) 100 ml @ 200 mls/hr Q24H IVPB Last administered on 05/21/16 15:16; Admin Dose 200 MLS/HR; Start 05/20/16 at 14:00 MIRIAN JHAVERI May 21, 2016 15:30
[2016-05-21] MEDS: LORAZEPAM 1 MG TAB GTB SCH (23:49)
[2016-05-22] VITALS (12 sets, daily range): BP systolic 99–127; BP diastolic 58–71; PULSE 62–83; RESP 18–64
--- NOTE | 2016-05-22 01:02 | CONS ---
DATE OF ADMISSION: 05/18/2016 DATE OF CONSULTATION: 05/21/2016 TYPE OF CONSULTATION: Urology. REQUESTING PHYSICIAN: Ignacio Brown MD Dear Dr. Brown: Thank you for asking me to see this patient in urological consultation. HISTORY OF PRESENT ILLNESS: This is a 65-year-old male who is known to me for a long time. He has a history of multiple sclerosis with neurogenic bladder. Also, he has a tracheostomy and G-tube feed ing. The patient has had a history of kidney stones and bladder stones and urethral stricture and h e has undergone a cystoscopy, a ureteral pyeloscopy, laser lithotripsy and insertion of a JJ stent a nd removal of a JJ stent back in the past, and he was admitted this time because of fever and oxygen desaturation and found to have pneumonia. SOCIAL HISTORY: Lives in a [facility] facility. He does not smoke, does not drink. REVIEW OF SYSTEMS: Review of systems was done and is negative except what is mentioned above. MEDICATIONS: He is presently on include: 1. Albuterol. 2. Ipratropium. 3. Ertapenem. 4. Vancomycin. 5. Lorazepam. 6. Baclofen. 7. Vitamin D. 8. Bentyl. 9. Lovenox. 10. Lexapro. 11. . 12. Fish oil. 13. Keppra. 14. Potassium chloride. 15. Aspirin. 16. Albuterol. 17. Ipratropium. 18. Prevacid. 19. Benadryl. 20. Zolpidem. ALLERGIES: 1. PHENOBARBITAL. 2. DILANTIN. PHYSICAL EXAMINATION: GENERAL: Reveals a 65-year-old male. He weighs 74 kg and he is 70 inches tall. VITAL SIGNS: Temperature is 98.3, pulse 79, respiration 18, blood pressure 121/59I HEENT: The patient does have a tracheostomy tube in place and G-tube in place. ABDOMEN: Otherwise is soft. EXTERNAL GENITALIA: Showed that he has a 22-[place] 10 mL balloon Brock catheter and that is drainin g clear urine. EXTREMITIES: His lower extremities are contracted and he cannot separate much. LABORATORY DATA: His last CBC today shows a white count of 6.4, hemoglobin 11.7, hematocrit 35.3. BUN is 12, creatinine 0.6, sodium 142, potassium 3.6, chloride 101, CO2 of 31. PT 14.5, INR 1.13. Urinalysis on admission showed more than 50 WBC per high power field. Urine culture showing enteroc occus species and prior urine culture on the showed E. coli, ESBL and enterococcus as well. Also the respiratory culture showed Klebsiella pneumoniae ESBL and Serratia marcescens . IMPRESSION: Urinary tract infection. The patient does have a chronic indwelling Brock catheter. H e does have pneumonia and extended-spectrum beta-lactamase urinary tract infection. PLAN: I did remove the old Brock catheter that he had and inserted a new 22-[place] Brock catheter a nd inflated with the balloon with 10 mL of sterile water. The patient tolerated the procedure well. I will follow his urological problem with you. I do thank you for allowing me to help in his care. Dictated By: ARIAN MCCLELLAND MD BB/NTS Conf#: [id number] DID#: [id number] CC: IGNACIO BROWN MD;*EndCC*
[2016-05-22] MEDS: ALBUTEROL/IPRATROPIUM (NEB) 3 ML AMP HHN PRN (01:56)
[2016-05-22] MEDS: LANSOPRAZOLE 30 MG CAP GTB SCH (05:04)
[2016-05-22] MEDS: [UNRECOGNIZED DRUG - OTHER] MM SCH ×3 (05:05→17:29)
[2016-05-22] MEDS: E LYTES MM SCH ×3 (05:05→17:29)
[2016-05-22 06:27] LABS: ADD SCAN DIFF NO
[2016-05-22 06:49] LABS: BASOPHILS % 0.6 % (0.0-2.0); EOSINOPHILS # 0.5 10^3/ul (0.0-0.5); EOSINOPHILS % 9.4 % (0.0-7.0); HEMATOCRIT 37.2 % (42.0-52.0); HEMOGLOBIN 11.9 g/dl (14.0-18.0); LYMPHOCYTES # 1.4 10^3/ul (0.8-2.9); LYMPHOCYTES % 28.3 % (15.0-51.0); MEAN CORPUSCULAR HEMOGLOBIN 30.7 pg (29.0-33.0); MEAN CORPUSCULAR VOLUME 96.1 fl (82.0-101.0); MEAN PLATELET VOLUME 12.7 fl (7.4-10.4); MONOCYTE # 0.4 10^3/ul (0.3-0.9); MONOCYTES % 8.8 % (0.0-11.0); NEUTROPHIL # 2.5 10^3/ul (1.6-7.5); NEUTROPHILS % 52.5 % (39.0-77.0); PLATELET COUNT 206 10^3/UL (140-415); RED BLOOD COUNT 3.87 10^6/ul (4.70-6.10); RED CELL DISTRIBUTION WIDTH 13.2 % (11.5-14.5); WHITE BLOOD COUNT 4.8 10^3/ul (4.8-10.8)
[2016-05-22 06:53] LABS: POTASSIUM 4.1 mmol/L (3.5-5.1)
[2016-05-22 06:56] LABS: CALCIUM 9.3 mg/dl (8.4-10.2); CREATININE 0.57 mg/dl (0.61-1.24)
[2016-05-22] MEDS: GLATIRAMER ACETATE 40 MG XX SCH ×3 (08:00→13:34)
[2016-05-22] MEDS: ALBUTEROL/IPRATROPIUM (NEB) 3 ML AMP HHN SCH ×3 (08:38→20:02)
[2016-05-22] MEDS: LEVETIRACETAM (100 MG/ML) 5ML CUP GTB SCH ×2 (10:02→21:16)
[2016-05-22] MEDS: ESCITALOPRAM 10 MG TAB GTB SCH (10:03)
[2016-05-22] MEDS: ASPIRIN 81 MG TAB GTB SCH (10:03)
[2016-05-22] MEDS: DICYCLOMINE 10 MG CAP GTB SCH ×2 (10:03→21:15)
[2016-05-22] MEDS: BACLOFEN 10 MG TAB GTB SCH ×4 (10:03→21:16)
[2016-05-22] MEDS: FISH OIL 1,000 MG CAP PO SCH (10:03)
[2016-05-22] MEDS: CHOLECALCIFEROL 2,000 UNIT CAP GTB SCH (10:03)
[2016-05-22] MEDS: POTASSIUM CHLORIDE 20 MEQ POWDER FOR ORAL SOLN GTB SCH (10:03)
[2016-05-22] MEDS: SACCHAROMYCES BOULARDII 250 MG CAP GTB SCH ×2 (10:03→21:16)
[2016-05-22] MEDS: METHENAMINE 1 GM TAB GTB SCH ×2 (10:04→21:16)
[2016-05-22] MEDS: ENOXAPARIN 40 MG/0.4 ML SYG SC SCH (10:28)
--- NOTE | 2016-05-22 11:54 | CONS ---
Date/Time of Note Date/Time of Note DATE: 05/22/16 TIME: 11:52 Assessment/Plan Assessment/Plan Additional Assessment/Plan Assessment recommendations; 1. Patient admitted for right lower lobe pneumonia likely due to aspiration. 2. UTI. 3. History of multiple sclerosis. With chronic respiratory failure however patient doing very well on just a tracheostomy with Passy-[place] valve attached. Continue current treatment. Consultation Date/Type/Reason Admit Date/Time May 18, 2016 at 12:33 Initial Consult Date 05/18/16 Type of Consultation: Pulmonary 24 HR Interval Summary Free Text/Dictation Patient condition is stable. Still complains of mild chest congestion. Denies any fever, chills denies any shortness of breath. General exam; elderly male, currently in no distress, on Passy-[place] valve. Exam/Review of Systems Vital Signs Vitals Vital Signs Date Time Temp Pulse Resp B/P Pulse Ox O2 Delivery O2 Flow Rate FiO2 05/22/16 11:22 97.7 78 18 127/60 97 05/22/16 09:08 Nasal Cannula 4.0 Intake and Output 05/21/16 05/21/16 05/22/16 15:00 23:00 07:00 Intake Total 800 ml 1030 ml Output Total 600 ml 100 ml Balance 200 ml 930 ml Exam HEENT exam; supple neck, no JVD. No lymphadenopathy. Midline trachea. No thyromegaly. Tracheostomy in place. Insertion site is clean. Pharynx is clear. Chest examination; diminished but clear breath sounds bilaterally. S1-S2 audible, no murmurs. Regular rhythm. Abdomen examination; soft, G-tube in place. Nondistended. Nontender. No organomegaly. Extremity exam is; no peripheral edema. 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 Results Result Diagram: 05/22/16 0552 05/22/16 0552 Results 24 hrs Laboratory Tests Test 05/22/16 05:52 Anion Gap 14 Basophils # 0.0 Basophils % 0.6 Blood Urea Nitrogen 12 Calcium Level 9.3 Carbon Dioxide Level 32 H Chloride Level 102 Creatinine 0.57 L Eosinophils # 0.5 Eosinophils % 9.4 H Glucose Level 92 Hematocrit 37.2 L Hemoglobin 11.9 L Lymphocytes # 1.4 Lymphocytes % 28.3 Mean Corpuscular Hemoglobin 30.7 Mean Corpuscular Hemoglobin Concent 32.0 Mean Corpuscular Volume 96.1 Mean Platelet Volume 12.7 H Monocytes # 0.4 Monocytes % 8.8 Neutrophils # 2.5 Neutrophils % 52.5 Nucleated Red Blood Cells # 0.0 Nucleated Red Blood Cells % 0.0 Platelet Count 206 Potassium Level 4.1 Red Blood Count 3.87 L Red Cell Distribution Width 13.2 Sodium Level 144 White Blood Count 4.8 # Medications Medications Current Medications Baclofen (Lioresal) 20 mg QID GTB Last administered on 05/22/16 10:03; Admin Dose 20 MG; Start 05/18/16 at 09:00 Cholecalciferol (Vitamin D) 2,000 unit DAILY GTB Last administered on 10:03; Admin Dose 2,000 UNIT; Start 05/18/16 at 09:00 Dicyclomine HCl (Bentyl) 10 mg BID GTB Last administered on 05/22/16 10:03; Admin Dose 10 MG; Start 05/18/16 at 09:00 Diphenhydramine HCl (Benadryl) 25 mg DAILY PRN GTB ITCHING; Start 05/18/16 at 04 :30 Enoxaparin Sodium (Lovenox) 40 mg DAILY SC Last administered on 05/22/16 10:28 ; Admin Dose 40 MG; Start 05/18/16 at 09:00 Escitalopram Oxalate (Lexapro) 10 mg DAILY GTB Last administered on 05/22/16 10:03; Admin Dose 10 MG; Start 05/18/16 at 09:00 Lansoprazole (Prevacid) 30 mg DAILY@06 GTB Last administered on 05/22/16 05:04 ; Admin Dose 30 MG; Start 05/18/16 at 06:00 Lorazepam (Ativan) 1 mg HS GTB Last administered on 05/21/16 23:49; Admin Dose 1 MG; Start 05/18/16 at 21:00 Methenamine (Hiprex) 1 gm BID GTB Last administered on 05/22/16 10:04; Admin Dose 1 GM; Start 05/18/16 at 09:00 Fish Oil (Fish Oil) 1,000 mg DAILY PO Last administered on 05/22/16 10:03; Admin Dose 1,000 MG; Start 05/18/16 at 09:00 Saccharomyces Boulardii (Florastor) 250 mg BID GTB Last administered on 10:03; Admin Dose 250 MG; Start 05/18/16 at 09:00 Zolpidem Tartrate (Ambien) 5 mg QHS PRN GTB INSOMNIA Last administered on 00:15; Admin Dose 5 MG; Start 05/18/16 at 04:30 Miscellaneous Information 40 mg MON,WED,FRI SQ ; Start 05/18/16 at 04:30; Status UNV Miscellaneous Information 1 tbs Q6 MM ; Start 05/18/16 at 06:00; Status UNV Levetiracetam (Keppra Liquid) 1,000 mg BID GTB Last administered on 05/22/16 10:02; Admin Dose 1,000 MG; Start 05/18/16 at 09:00 Potassium Chloride (Potassium Chloride Pwd/Soln) 20 meq DAILY GTB Last administered on 05/22/16 10:03; Admin Dose 20 MEQ; Start 05/18/16 at 09:00 Aspirin (Aspirin) 81 mg DAILY GTB Last administered on 05/22/16 10:03; Admin Dose 81 MG; Start 05/18/16 at 09:00 Miscellaneous Information Glatiramer Acetate (Copaxone)... Q8H XX ; Start at 08:00 Ertapenem 1 gm/ Sodium Chloride 100 ml @ 200 mls/hr Q24H IVPB Last administered on 05/21/16 15:16; Admin Dose 200 MLS/HR; Start 05/20/16 at 14:00 Vancomycin HCl/ Sodium Chloride (Vancocin/NS) 250 ml @ 83.333 mls/ hr Q12H IVPB ; Start 05/22/16 at 12:00 BEN AVALOS May 22, 2016 11:54
--- NOTE | 2016-05-22 12:44 | CONS ---
Date/Time of Note Date/Time of Note DATE: 05/22/16 TIME: 12:43 Assessment/Plan Assessment/Plan Chief Complaint/Hosp Course SUBJECTIVE: No events overnight. The patient is lying comfortably in bed, no fevers MICROBIOLOGY: Urine culture growing E coli ESBL and Enterococcus species. E coli ESBL is resistant to cefepime, susceptible to amikacin, nitrofurantoin and Zosyn, also imipenem. Blood culture had been negative. Endotracheal aspirate growing Klebsiella ESBL susceptible to cefepime, imipenem. INDWELLINGS: Trach, Brock, and PEG. ANTIMICROBIALS: The patient is on: 1. IV vancomycin. 2. Invanz PHYSICAL EXAMINATION: GENERAL: This is a chronically ill-appearing, elderly man who is alert, in no distress. HEENT: Head atraumatic, normocephalic. Sclerae anicteric. Buccal mucosa dry. NECK: Supple. Tracheostomy present. CHEST: Rise symmetrical. Breath sounds diminished to bases. HEART: S1, S2. ABDOMEN: Soft, bowel sounds present. EXTREMITIES: Without cyanosis. ASSESSMENT: 1. Systemic inflammatory response syndrome. 2. Recurrent polymicrobial urinary tract infection. 3. Healthcare-associated pneumonia. 4. Advanced multiple sclerosis. PLAN: Remains stable, continue abx DW pt Problems: Consultation Date/Type/Reason Admit Date/Time May 18, 2016 at 12:33 Initial Consult Date 05/18/16 Type of Consultation: ID Exam/Review of Systems Vital Signs Vitals Vital Signs Date Time Temp Pulse Resp B/P Pulse Ox O2 Delivery O2 Flow Rate FiO2 05/22/16 12:17 83 05/22/16 11:22 97.7 18 127/60 97 05/22/16 09:08 Nasal Cannula 4.0 Intake and Output 05/21/16 05/21/16 05/22/16 15:00 23:00 07:00 Intake Total 800 ml 1030 ml Output Total 600 ml 100 ml Balance 200 ml 930 ml Results Result Diagram: 05/22/16 0552 05/22/16 0552 Results 24 hrs Laboratory Tests Test 05/22/16 05:52 Anion Gap 14 Basophils # 0.0 Basophils % 0.6 Blood Urea Nitrogen 12 Calcium Level 9.3 Carbon Dioxide Level 32 H Chloride Level 102 Creatinine 0.57 L Eosinophils # 0.5 Eosinophils % 9.4 H Glucose Level 92 Hematocrit 37.2 L Hemoglobin 11.9 L Lymphocytes # 1.4 Lymphocytes % 28.3 Mean Corpuscular Hemoglobin 30.7 Mean Corpuscular Hemoglobin Concent 32.0 Mean Corpuscular Volume 96.1 Mean Platelet Volume 12.7 H Monocytes # 0.4 Monocytes % 8.8 Neutrophils # 2.5 Neutrophils % 52.5 Nucleated Red Blood Cells # 0.0 Nucleated Red Blood Cells % 0.0 Platelet Count 206 Potassium Level 4.1 Red Blood Count 3.87 L Red Cell Distribution Width 13.2 Sodium Level 144 White Blood Count 4.8 # Medications Medications Current Medications Baclofen (Lioresal) 20 mg QID GTB Last administered on 05/22/16 10:03; Admin Dose 20 MG; Start 05/18/16 at 09:00 Cholecalciferol (Vitamin D) 2,000 unit DAILY GTB Last administered on 10:03; Admin Dose 2,000 UNIT; Start 05/18/16 at 09:00 Dicyclomine HCl (Bentyl) 10 mg BID GTB Last administered on 05/22/16 10:03; Admin Dose 10 MG; Start 05/18/16 at 09:00 Diphenhydramine HCl (Benadryl) 25 mg DAILY PRN GTB ITCHING; Start 05/18/16 at 04 :30 Enoxaparin Sodium (Lovenox) 40 mg DAILY SC Last administered on 05/22/16 10:28 ; Admin Dose 40 MG; Start 05/18/16 at 09:00 Escitalopram Oxalate (Lexapro) 10 mg DAILY GTB Last administered on 05/22/16 10:03; Admin Dose 10 MG; Start 05/18/16 at 09:00 Lansoprazole (Prevacid) 30 mg DAILY@06 GTB Last administered on 05/22/16 05:04 ; Admin Dose 30 MG; Start 05/18/16 at 06:00 Lorazepam (Ativan) 1 mg HS GTB Last administered on 05/21/16 23:49; Admin Dose 1 MG; Start 05/18/16 at 21:00 Methenamine (Hiprex) 1 gm BID GTB Last administered on 05/22/16 10:04; Admin Dose 1 GM; Start 05/18/16 at 09:00 Fish Oil (Fish Oil) 1,000 mg DAILY PO Last administered on 05/22/16 10:03; Admin Dose 1,000 MG; Start 05/18/16 at 09:00 Saccharomyces Boulardii (Florastor) 250 mg BID GTB Last administered on 10:03; Admin Dose 250 MG; Start 05/18/16 at 09:00 Zolpidem Tartrate (Ambien) 5 mg QHS PRN GTB INSOMNIA Last administered on 00:15; Admin Dose 5 MG; Start 05/18/16 at 04:30 Miscellaneous Information 40 mg MON,WED,FRI SQ ; Start 05/18/16 at 04:30; Status UNV Miscellaneous Information 1 tbs Q6 MM ; Start 05/18/16 at 06:00; Status UNV Levetiracetam (Keppra Liquid) 1,000 mg BID GTB Last administered on 05/22/16 10:02; Admin Dose 1,000 MG; Start 05/18/16 at 09:00 Potassium Chloride (Potassium Chloride Pwd/Soln) 20 meq DAILY GTB Last administered on 05/22/16 10:03; Admin Dose 20 MEQ; Start 05/18/16 at 09:00 Aspirin (Aspirin) 81 mg DAILY GTB Last administered on 05/22/16 10:03; Admin Dose 81 MG; Start 05/18/16 at 09:00 Miscellaneous Information Glatiramer Acetate (Copaxone)... Q8H XX ; Start at 08:00 Ertapenem 1 gm/ Sodium Chloride 100 ml @ 200 mls/hr Q24H IVPB Last administered on 05/21/16 15:16; Admin Dose 200 MLS/HR; Start 05/20/16 at 14:00 Vancomycin HCl/ Sodium Chloride (Vancocin/NS) 250 ml @ 83.333 mls/ hr Q12H IVPB ; Start 05/22/16 at 12:00 BIANCA RUBIO NP May 22, 2016 12:44
[2016-05-22] MEDS: ERTAPENEM SODIUM 1 GM in SOD CHLORIDE 0.9% 100 ML IVPB SCH (13:33)
[2016-05-22] MEDS: VANCOMYCIN 1.5 GM in SOD CHLORIDE 0.9% 250 ML IVPB SCH ×2 (13:34→23:59)
--- NOTE | 2016-05-22 14:19 | PN ---
Date/Time of Note Date/Time of Note DATE: 05/22/16 TIME: 14:17 Assessment/Plan VTE Prophylaxis VTE Prophylaxis Intervention: SCD's Lines/Catheters IV Catheter Type (from [facility]): Saline Lock [place] line still needed: Yes Urinary Cath still in place: Yes Reason Cath still needed: urinary retention Assessment/Plan Chief Complaint/Hosp Course ASSESSMENT AND PLAN: 1. Healthcare-acquired pneumonia. Dr. Restrepo is following patient in infectious disease consultation. Dr. Newberry is following patient in pulmonology consultation. Continue oxygen supplementation and bronchodilators and pulmonary toilet. 2. Urinary tract infection, urine cultures positive for E. coli ESBL and enterococcus, continue contact isolation, continue abx per ID. 3. Advanced multiple sclerosis. Continue patient on Copaxone. 4. Dysphagia with G-tube. Continue G-tube feeding, monitor residual. Continue aspiration precautions. 5. Neurogenic bladder with chronic Brock catheter. Status post Brock catheter changed by Dr. Douglas on 05/21. 6. Hyperlipidemia. Continue Tricor. 7. Bedbound status. Continue to assist patient with activities of daily living. Continue Lovenox for deep venous thrombosis prophylaxis. Continue Prevacid for peptic ulcer disease prophylaxis. Further recommendations based on clinical course. Plan of care discussed with Dr. Brown. Problems: Subjective 24 Hr Interval Summary Free Text/Dictation Patient remains afebrile breathing comfortably on supplemental oxygen 4 L via nasal cannula, tolerates G-tube feeding well. Exam/Review of Systems Vital Signs Vitals Vital Signs Date Time Temp Pulse Resp B/P Pulse Ox O2 Delivery O2 Flow Rate FiO2 05/22/16 12:17 83 05/22/16 11:22 97.7 18 127/60 97 05/22/16 09:08 Nasal Cannula 4.0 Intake and Output 05/21/16 05/21/16 05/22/16 15:00 23:00 07:00 Intake Total 800 ml 1030 ml Output Total 600 ml 100 ml Balance 200 ml 930 ml Exam PHYSICAL ASSESSMENT: GENERAL: Well-developed, well-nourished male, currently is awake, alert. HEENT: Head is atraumatic, normocephalic. PERRLA. NECK: Supple. Patient has a tracheostomy at the base of the neck with Passy- Liz valve. CHEST: Scattered rhonchi bilaterally, diminished at the bases. No wheezes noted. CARDIOVASCULAR: Normal S1, S2. No murmurs, gallops, clicks, rubs noted. ABDOMEN: Round, soft, nondistended, nontender. G-tube with intact stoma. There is no guarding or rebound tenderness. GENITOURINARY: Patient has a Brock catheter with yellow urine with slight sediment. EXTREMITIES: There is no edema, clubbing, cyanosis. Pulses equal bilaterally, 2+. MUSCULOSKELETAL: There is bilateral lower extremity muscle wasting. SKIN: There is no rash, petechiae noted. NEUROLOGIC: Patient is awake, alert, and oriented x3. Neurological status at the baseline. Results Result Diagram: 05/22/16 0552 05/22/16 0552 Results 24 hrs Laboratory Tests Test 05/22/16 05:52 Anion Gap 14 Basophils # 0.0 Basophils % 0.6 Blood Urea Nitrogen 12 Calcium Level 9.3 Carbon Dioxide Level 32 H Chloride Level 102 Creatinine 0.57 L Eosinophils # 0.5 Eosinophils % 9.4 H Glucose Level 92 Hematocrit 37.2 L Hemoglobin 11.9 L Lymphocytes # 1.4 Lymphocytes % 28.3 Mean Corpuscular Hemoglobin 30.7 Mean Corpuscular Hemoglobin Concent 32.0 Mean Corpuscular Volume 96.1 Mean Platelet Volume 12.7 H Monocytes # 0.4 Monocytes % 8.8 Neutrophils # 2.5 Neutrophils % 52.5 Nucleated Red Blood Cells # 0.0 Nucleated Red Blood Cells % 0.0 Platelet Count 206 Potassium Level 4.1 Red Blood Count 3.87 L Red Cell Distribution Width 13.2 Sodium Level 144 White Blood Count 4.8 # Medications Medications Current Medications Baclofen (Lioresal) 20 mg QID GTB Last administered on 05/22/16 12:43; Admin Dose 20 MG; Start 05/18/16 at 09:00 Cholecalciferol (Vitamin D) 2,000 unit DAILY GTB Last administered on 10:03; Admin Dose 2,000 UNIT; Start 05/18/16 at 09:00 Dicyclomine HCl (Bentyl) 10 mg BID GTB Last administered on 05/22/16 10:03; Admin Dose 10 MG; Start 05/18/16 at 09:00 Diphenhydramine HCl (Benadryl) 25 mg DAILY PRN GTB ITCHING; Start 05/18/16 at 04 :30 Enoxaparin Sodium (Lovenox) 40 mg DAILY SC Last administered on 05/22/16 10:28 ; Admin Dose 40 MG; Start 05/18/16 at 09:00 Escitalopram Oxalate (Lexapro) 10 mg DAILY GTB Last administered on 05/22/16 10:03; Admin Dose 10 MG; Start 05/18/16 at 09:00 Lansoprazole (Prevacid) 30 mg DAILY@06 GTB Last administered on 05/22/16 05:04 ; Admin Dose 30 MG; Start 05/18/16 at 06:00 Lorazepam (Ativan) 1 mg HS GTB Last administered on 05/21/16 23:49; Admin Dose 1 MG; Start 05/18/16 at 21:00 Methenamine (Hiprex) 1 gm BID GTB Last administered on 05/22/16 10:04; Admin Dose 1 GM; Start 05/18/16 at 09:00 Fish Oil (Fish Oil) 1,000 mg DAILY PO Last administered on 05/22/16 10:03; Admin Dose 1,000 MG; Start 05/18/16 at 09:00 Saccharomyces Boulardii (Florastor) 250 mg BID GTB Last administered on 10:03; Admin Dose 250 MG; Start 05/18/16 at 09:00 Zolpidem Tartrate (Ambien) 5 mg QHS PRN GTB INSOMNIA Last administered on 00:15; Admin Dose 5 MG; Start 05/18/16 at 04:30 Miscellaneous Information 40 mg MON,WED,FRI SQ ; Start 05/18/16 at 04:30; Status UNV Miscellaneous Information 1 tbs Q6 MM ; Start 05/18/16 at 06:00; Status UNV Levetiracetam (Keppra Liquid) 1,000 mg BID GTB Last administered on 05/22/16 10:02; Admin Dose 1,000 MG; Start 05/18/16 at 09:00 Potassium Chloride (Potassium Chloride Pwd/Soln) 20 meq DAILY GTB Last administered on 05/22/16 10:03; Admin Dose 20 MEQ; Start 05/18/16 at 09:00 Aspirin (Aspirin) 81 mg DAILY GTB Last administered on 05/22/16 10:03; Admin Dose 81 MG; Start 05/18/16 at 09:00 Miscellaneous Information Glatiramer Acetate (Copaxone)... Q8H XX ; Start at 08:00 Ertapenem 1 gm/ Sodium Chloride 100 ml @ 200 mls/hr Q24H IVPB Last administered on 05/22/16 13:33; Admin Dose 200 MLS/HR; Start 05/20/16 at 14:00 Vancomycin HCl/ Sodium Chloride (Vancocin/NS) 250 ml @ 83.333 mls/ hr Q12H IVPB Last administered on 05/22/16 13:34; Admin Dose 83.333 MLS/HR; Start 12/29 at 12:00 TAYA PATINO May 22, 2016 14:19
[2016-05-22] MEDS: LORAZEPAM 1 MG TAB GTB SCH (21:15)
--- NOTE | 2016-05-22 21:26 | PN ---
DATE: 05/22/2016 SUBJECTIVE: Urinary retention, neurogenic bladder and urinary tract infection. REVIEW OF SYSTEMS: The patient is feeling comfortable and denies feeling any pain. He does have a history of multiple sclerosis and neurogenic bladder. OBJECTIVE: VITAL SIGNS: His temperature is 97.8, the blood pressure 114/71, pulse 72, respiration 18. ABDOMEN: Brock catheter is draining clear urine. LABORATORY DATA: The CBC shows a white count of 4.8, hemoglobin 11.9, hematocrit 37.2 and the BUN i s 12, creatinine 0.57. Electrolytes: Sodium 144, potassium 4.1, chloride 102, CO2 32. Urine cultu re done last time was showing enterococcus species and the patient has been on vancomycin. ASSESSMENT: From a urological standpoint, we shall continue the present treatment. Dictated By: ARIAN CORTES/DORON Conf#: [id number] DID#: [id number]
[2016-05-23] MEDS: GLATIRAMER ACETATE 40 MG XX SCH
[2016-05-23 00:20] VITALS: BP 108/62; RESP 17
[2016-05-23] MEDS: ALBUTEROL/IPRATROPIUM (NEB) 3 ML AMP HHN PRN (02:10)
[2016-05-23 02:18] VITALS: BP 110/59; RESP 16
[2016-05-23] MEDS: LANSOPRAZOLE 30 MG CAP GTB SCH (05:42)
[2016-05-23 06:10] LABS: ADD SCAN DIFF NO
[2016-05-23 06:14] LABS: BASOPHILS % 0.7 % (0.0-2.0); EOSINOPHILS # 0.5 10^3/ul (0.0-0.5); HEMATOCRIT 36.8 % (42.0-52.0); LYMPHOCYTES # 1.5 10^3/ul (0.8-2.9); LYMPHOCYTES % 28.2 % (15.0-51.0); MEAN CORPUSCULAR HEMOGLOBIN 31.2 pg (29.0-33.0); MEAN CORPUSCULAR HGB CONC 32.6 g/dl (32.0-37.0); MEAN CORPUSCULAR VOLUME 95.6 fl (82.0-101.0); MEAN PLATELET VOLUME 12.7 fl (7.4-10.4); MONOCYTE # 0.3 10^3/ul (0.3-0.9); MONOCYTES % 6.3 % (0.0-11.0); NEUTROPHILS % 55.6 % (39.0-77.0); PLATELET COUNT 230 10^3/UL (140-415); RED BLOOD COUNT 3.85 10^6/ul (4.70-6.10); RED CELL DISTRIBUTION WIDTH 12.9 % (11.5-14.5); WHITE BLOOD COUNT 5.4 10^3/ul (4.8-10.8)
[2016-05-23 06:26] LABS: POTASSIUM 4.1 mmol/L (3.5-5.1)
[2016-05-23 06:29] LABS: CREATININE 0.63 mg/dl (0.61-1.24)
[2016-05-23 06:30] LABS: CALCIUM 9.3 mg/dl (8.4-10.2)
[2016-05-23] MEDS: E LYTES MM SCH ×4 (06:39→17:54)
[2016-05-23] MEDS: [UNRECOGNIZED DRUG - OTHER] MM SCH ×4 (06:39→17:54)
[2016-05-23 07:56] VITALS: BP 122/68; RESP 22
[2016-05-23] MEDS: ALBUTEROL/IPRATROPIUM (NEB) 3 ML AMP HHN SCH ×3 (07:56→20:33)
[2016-05-23] MEDS: ASPIRIN 81 MG TAB GTB SCH (08:58)
[2016-05-23] MEDS: CHOLECALCIFEROL 2,000 UNIT CAP GTB SCH (08:58)
[2016-05-23] MEDS: ESCITALOPRAM 10 MG TAB GTB SCH (08:58)
[2016-05-23] MEDS: SACCHAROMYCES BOULARDII 250 MG CAP GTB SCH ×2 (08:58→20:53)
[2016-05-23] MEDS: LEVETIRACETAM (100 MG/ML) 5ML CUP GTB SCH ×2 (08:58→20:53)
[2016-05-23] MEDS: POTASSIUM CHLORIDE 20 MEQ POWDER FOR ORAL SOLN GTB SCH (08:58)
[2016-05-23] MEDS: BACLOFEN 10 MG TAB GTB SCH ×4 (08:59→20:53)
[2016-05-23] MEDS: FISH OIL 1,000 MG CAP PO SCH (08:59)
[2016-05-23] MEDS: ENOXAPARIN 40 MG/0.4 ML SYG SC SCH (09:15)
--- NOTE | 2016-05-23 09:33 | CONS ---
Date/Time of Note Date/Time of Note DATE: 05/23/16 TIME: 09:32 Assessment/Plan Assessment/Plan Chief Complaint/Hosp Course ID PROGRESS NOTE TOTAL ABX DAY #6 => 1. IV vancomycin #6 2. Invanz #4 24H INTERVAL SUMMARY * A/A/O stable, still requires suction of secretions prior to p-[place] valve, NAD * MICROBIOLOGY: Urine culture growing E coli ESBL and Enterococcus species. E coli ESBL is resistant to cefepime, susceptible to amikacin, nitrofurantoin and Zosyn, also imipenem. Blood culture had been negative. Endotracheal aspirate growing Klebsiella ESBL susceptible to cefepime, imipenem. PHYSICAL EXAMINATION: GENERAL: 65 yo M lethargic HEENT: Unremarkable NECK: Trach secure CHEST: Equal chest rise bilaterally, without dyspnea on observation HEART: Pulse RRR ABDOMEN: Soft/peg EXTREMITIES: Warm SKIN: See hard chart skin assessment ID ASSESSMENT: 65 yo M w/PMHx advanced multiple-sclerosis w/neurodegeneration, Trach/Peg admit with: 1. Systemic inflammatory response syndrome due to #2 &#3 * BCx(-) 2. Recurrent complicated polymicrobial urinary tract infection. 3. Healthcare-associated pneumonia. * 05/19/16 CXR: 1. Worsening right lower lobe infiltrate with new subsegmental atelectasis in the left lower lung field. * RESPIRATORY CULTURE Final Organism 1 K PNEUMO ESBL QUANTITY SCANT GROWTH . MULTI DRUG RESISTANT ORGANISM Organism 2 SERRATIA MARCESCENS QUANTITY SCANT GROWTH Organism 3 METHICILLIN RESISTANT S.AUREUS QUANTITY 3+ . MULTI DRUG RESISTANT ORGANISM ()MRSA Nares - not checked INVASIVES: Trach, Brock, and PEG. ABX ALLERGY: KNDA CURRENT ABX: 1. IV vancomycin. 2. Invanz ID RECOMMENDATIONS: 1. Continue current ABX at least 10 days Invanz 2. Swab nares for MRSA 3. Spouse/patient request extensive discussion about each different bacterial pathogen which I provided . Problems: Consultation Date/Type/Reason Admit Date/Time May 18, 2016 at 12:33 Initial Consult Date 05/18/16 Type of Consultation: ID Exam/Review of Systems Vital Signs Vitals Vital Signs Date Time Temp Pulse Resp B/P Pulse Ox O2 Delivery O2 Flow Rate FiO2 05/23/16 07:58 71 16 97 Nasal Cannula 4.0 05/23/16 07:56 98.6 122/68 Intake and Output 05/22/16 05/22/16 05/23/16 15:00 23:00 07:00 Intake Total 1250 ml 250 ml Output Total 1400 ml 800 ml Balance -150 ml -550 ml Results Result Diagram: 05/23/16 0504 05/23/16 0504 Results 24 hrs Laboratory Tests Test 05/23/16 05:04 Anion Gap 16 Basophils # 0.0 Basophils % 0.7 Blood Urea Nitrogen 14 Calcium Level 9.3 Carbon Dioxide Level 32 H Chloride Level 101 Creatinine 0.63 Eosinophils # 0.5 Eosinophils % 9.0 H Glucose Level 99 Hematocrit 36.8 L Hemoglobin 12.0 L Lymphocytes # 1.5 Lymphocytes % 28.2 Mean Corpuscular Hemoglobin 31.2 Mean Corpuscular Hemoglobin Concent 32.6 Mean Corpuscular Volume 95.6 Mean Platelet Volume 12.7 H Monocytes # 0.3 Monocytes % 6.3 Neutrophils # 3.0 Neutrophils % 55.6 Nucleated Red Blood Cells # 0.0 Nucleated Red Blood Cells % 0.0 Platelet Count 230 Potassium Level 4.1 Red Blood Count 3.85 L Red Cell Distribution Width 12.9 Sodium Level 145 H White Blood Count 5.4 Medications Medications Current Medications Baclofen (Lioresal) 20 mg QID GTB Last administered on 05/23/16 08:59; Admin Dose 20 MG; Start 05/18/16 at 09:00 Cholecalciferol (Vitamin D) 2,000 unit DAILY GTB Last administered on 08:58; Admin Dose 2,000 UNIT; Start 05/18/16 at 09:00 Dicyclomine HCl (Bentyl) 10 mg BID GTB Last administered on 05/22/16 21:15; Admin Dose 10 MG; Start 05/18/16 at 09:00 Diphenhydramine HCl (Benadryl) 25 mg DAILY PRN GTB ITCHING; Start 05/18/16 at 04 :30 Enoxaparin Sodium (Lovenox) 40 mg DAILY SC Last administered on 05/23/16 09:15 ; Admin Dose 40 MG; Start 05/18/16 at 09:00 Escitalopram Oxalate (Lexapro) 10 mg DAILY GTB Last administered on 05/23/16 08:58; Admin Dose 10 MG; Start 05/18/16 at 09:00 Lansoprazole (Prevacid) 30 mg DAILY@06 GTB Last administered on 05/23/16 05:42 ; Admin Dose 30 MG; Start 05/18/16 at 06:00 Lorazepam (Ativan) 1 mg HS GTB Last administered on 05/22/16 21:15; Admin Dose 1 MG; Start 05/18/16 at 21:00 Methenamine (Hiprex) 1 gm BID GTB Last administered on 05/22/16 21:16; Admin Dose 1 GM; Start 05/18/16 at 09:00 Fish Oil (Fish Oil) 1,000 mg DAILY PO Last administered on 05/23/16 08:59; Admin Dose 1,000 MG; Start 05/18/16 at 09:00 Saccharomyces Boulardii (Florastor) 250 mg BID GTB Last administered on 08:58; Admin Dose 250 MG; Start 05/18/16 at 09:00 Zolpidem Tartrate (Ambien) 5 mg QHS PRN GTB INSOMNIA Last administered on 00:15; Admin Dose 5 MG; Start 05/18/16 at 04:30 Miscellaneous Information 40 mg MON,WED,FRI SQ ; Start 05/18/16 at 04:30; Status UNV Miscellaneous Information 1 tbs Q6 MM ; Start 05/18/16 at 06:00; Status UNV Levetiracetam (Keppra Liquid) 1,000 mg BID GTB Last administered on 05/23/16 08:58; Admin Dose 1,000 MG; Start 05/18/16 at 09:00 Potassium Chloride (Potassium Chloride Pwd/Soln) 20 meq DAILY GTB Last administered on 05/23/16 08:58; Admin Dose 20 MEQ; Start 05/18/16 at 09:00 Aspirin (Aspirin) 81 mg DAILY GTB Last administered on 05/23/16 08:58; Admin Dose 81 MG; Start 05/18/16 at 09:00 Miscellaneous Information Glatiramer Acetate (Copaxone)... Q8H XX ; Start at 08:00 Ertapenem 1 gm/ Sodium Chloride 100 ml @ 200 mls/hr Q24H IVPB Last administered on 05/22/16 13:33; Admin Dose 200 MLS/HR; Start 05/20/16 at 14:00 Vancomycin HCl/ Sodium Chloride (Vancocin/NS) 250 ml @ 83.333 mls/ hr Q12H IVPB Last administered on 05/22/16t 23:59; Admin Dose 83.333 MLS/HR; Start 12/29 at 12:00 EMMA SALCIDO NP May 23, 2016 09:32
--- NOTE | 2016-05-23 10:53 | PN ---
Date/Time of Note Date/Time of Note DATE: 05/23/16 TIME: 10:49 Assessment/Plan VTE Prophylaxis VTE Prophylaxis Intervention: LMWH Lines/Catheters IV [facility]ter Type [facility]from [facility] Saline Lock Urinary Cath still in place: Yes Assessment/Plan Assessment/Plan 1. Healthcare-acquired pneumonia. Dr. Restrepo is following patient in infectious disease consultation. Dr. Newberry is following patient in pulmonology consultation. Continue oxygen supplementation and bronchodilators and pulmonary toilet. 2. Urinary tract infection, urine cultures positive for E. coli ESBL and enterococcus, continue contact isolation, continue abx per ID. 3. Advanced multiple sclerosis. Continue patient on Copaxone. 4. Dysphagia with G-tube. Continue G-tube feeding, monitor residual. Continue aspiration precautions. 5. Neurogenic bladder with chronic Brock catheter. Status post Brock catheter changed by Dr. Douglas on 05/21. 6. Hyperlipidemia. Continue Tricor. 7. Bedbound status. Continue to assist patient with activities of daily living. Continue Lovenox for deep venous thrombosis prophylaxis. Continue Prevacid for peptic ulcer disease prophylaxis. at bed side, all questions answered. Further recommendations based on clinical course. Plan of care discussed with Dr. Brown. Subjective 24 Hr Interval Summary Constitutional: requiring IVF, requiring O2 Eyes: no complaints Respiratory: no complaints Cardiovascular: no complaints Gastrointestinal: no complaints Genitourinary: no complaints Musculoskeletal: no complaints Skin: no complaints Neurologic: no complaints Endocrine: no complaints Lymphatic: no complaints Psychological: nl mood/affect Immunologic: no complaints Exam/Review of Systems Vital Signs Vitals Vital Signs Date Time Temp Pulse Resp B/P Pulse Ox O2 Delivery O2 Flow Rate FiO2 05/23/16 07:58 71 16 97 Nasal Cannula 4.0 05/23/16 07:56 98.6 122/68 Intake and Output 05/22/16 05/22/16 05/23/16 15:00 23:00 07:00 Intake Total 1250 ml 250 ml Output Total 1400 ml 800 ml Balance -150 ml -550 ml Exam Constitutional: alert, oriented, well developed Psych: nl mood/affect Head: atraumatic Eyes: EOMI, PERRL, nl sclera ENMT: nl external ears & nose Neck: non-tender Respiratory: clear to auscultation, other (trach capped, able to talk in full sentences) Cardiovascular: nl pulses Gastrointestinal: non-tender, other (gt intact), soft Musculoskeletal: muscle weakness Extremities: normal pulses Neurological: nl mental status, nl speech Lymph: nontender Results Result Diagram: 05/23/16 0504 05/23/16 0504 Results 24 hrs Laboratory Tests Test 05/23/16 05:04 Anion Gap 16 Basophils # 0.0 Basophils % 0.7 Blood Urea Nitrogen 14 Calcium Level 9.3 Carbon Dioxide Level 32 H Chloride Level 101 Creatinine 0.63 Eosinophils # 0.5 Eosinophils % 9.0 H Glucose Level 99 Hematocrit 36.8 L Hemoglobin 12.0 L Lymphocytes # 1.5 Lymphocytes % 28.2 Mean Corpuscular Hemoglobin 31.2 Mean Corpuscular Hemoglobin Concent 32.6 Mean Corpuscular Volume 95.6 Mean Platelet Volume 12.7 H Monocytes # 0.3 Monocytes % 6.3 Neutrophils # 3.0 Neutrophils % 55.6 Nucleated Red Blood Cells # 0.0 Nucleated Red Blood Cells % 0.0 Platelet Count 230 Potassium Level 4.1 Red Blood Count 3.85 L Red Cell Distribution Width 12.9 Sodium Level 145 H White Blood Count 5.4 Medications Medications Current Medications Baclofen (Lioresal) 20 mg QID GTB Last administered on 05/23/16 08:59; Admin Dose 20 MG; Start 05/18/16 at 09:00 Cholecalciferol (Vitamin D) 2,000 unit DAILY GTB Last administered on 08:58; Admin Dose 2,000 UNIT; Start 05/18/16 at 09:00 Dicyclomine HCl (Bentyl) 10 mg BID GTB Last administered on 05/22/16 21:15; Admin Dose 10 MG; Start 05/18/16 at 09:00 Diphenhydramine HCl (Benadryl) 25 mg DAILY PRN GTB ITCHING; Start 05/18/16 at 04 :30 Enoxaparin Sodium (Lovenox) 40 mg DAILY SC Last administered on 05/23/16 09:15 ; Admin Dose 40 MG; Start 05/18/16 at 09:00 Escitalopram Oxalate (Lexapro) 10 mg DAILY GTB Last administered on 05/23/16 08:58; Admin Dose 10 MG; Start 05/18/16 at 09:00 Lansoprazole (Prevacid) 30 mg DAILY@06 GTB Last administered on 05/23/16 05:42 ; Admin Dose 30 MG; Start 05/18/16 at 06:00 Lorazepam (Ativan) 1 mg HS GTB Last administered on 05/22/16 21:15; Admin Dose 1 MG; Start 05/18/16 at 21:00 Methenamine (Hiprex) 1 gm BID GTB Last administered on 05/22/16 21:16; Admin Dose 1 GM; Start 05/18/16 at 09:00 Fish Oil (Fish Oil) 1,000 mg DAILY PO Last administered on 05/23/16 08:59; Admin Dose 1,000 MG; Start 05/18/16 at 09:00 Saccharomyces Boulardii (Florastor) 250 mg BID GTB Last administered on 08:58; Admin Dose 250 MG; Start 05/18/16 at 09:00 Zolpidem Tartrate (Ambien) 5 mg QHS PRN GTB INSOMNIA Last administered on 00:15; Admin Dose 5 MG; Start 05/18/16 at 04:30 Miscellaneous Information 40 mg MON,WED,FRI SQ ; Start 05/18/16 at 04:30; Status UNV Miscellaneous Information 1 tbs Q6 MM ; Start 05/18/16 at 06:00; Status UNV Levetiracetam (Keppra Liquid) 1,000 mg BID GTB Last administered on 05/23/16 08:58; Admin Dose 1,000 MG; Start 05/18/16 at 09:00 Potassium Chloride (Potassium Chloride Pwd/Soln) 20 meq DAILY GTB Last administered on 05/23/16 08:58; Admin Dose 20 MEQ; Start 05/18/16 at 09:00 Aspirin (Aspirin) 81 mg DAILY GTB Last administered on 05/23/16 08:58; Admin Dose 81 MG; Start 05/18/16 at 09:00 Miscellaneous Information Glatiramer Acetate (Copaxone)... Q8H XX ; Start at 08:00 Ertapenem 1 gm/ Sodium Chloride 100 ml @ 200 mls/hr Q24H IVPB Last administered on 05/22/16 13:33; Admin Dose 200 MLS/HR; Start 05/20/16 at 14:00 Vancomycin HCl/ Sodium Chloride (Vancocin/NS) 250 ml @ 83.333 mls/ hr Q12H IVPB Last administered on 05/22/16t 23:59; Admin Dose 83.333 MLS/HR; Start 12/29 at 12:00 Miscellaneous Information (*Rx Drug Level Order Reminder*) VANCOMYCIN TROUGH AT 2300 ONCE ONCE XX ; Start 05/23/16 at 23:00; Stop 05/23/16 at 23:01 MIRIAN JHAVERI May 23, 2016 10:53
--- NOTE | 2016-05-23 12:11 | CONS ---
Date/Time of Note Date/Time of Note DATE: 05/23/16 TIME: 12:09 Assessment/Plan Assessment/Plan Additional Assessment/Plan Assessment recommendations; next 1. Patient admitted for right lower lobe pneumonia due to aspiration clinically doing well. ESBL isolated in sputum and urine. 2. History of multiple sclerosis. Status post tracheostomy and G-tube placement. 3. UTI. Continue current treatment. Consultation Date/Type/Reason Admit Date/Time May 18, 2016 at 12:33 Initial Consult Date 05/18/16 Type of Consultation: Pulmonary 24 HR Interval Summary Free Text/Dictation Patient condition stable. Still complains of chest congestion however sputum production has decreased. Denies any shortness of breath, fever, chest pain. General exam; elderly male, currently in no distress. Awake and alert. Exam/Review of Systems Vital Signs Vitals Vital Signs Date Time Temp Pulse Resp B/P Pulse Ox O2 Delivery O2 Flow Rate FiO2 05/23/16 07:58 71 16 97 Nasal Cannula 4.0 05/23/16 07:56 98.6 122/68 Intake and Output 05/22/16 05/22/16 05/23/16 15:00 23:00 07:00 Intake Total 1250 ml 250 ml Output Total 1400 ml 800 ml Balance -150 ml -550 ml Exam H EENT examination; supple neck, no JVD. No lymphadenopathy. Midline trachea. No thyromegaly. Pharynx is clear. Tracheostomy in place with Passy-Liz valve at rest. Chest examination; diminished breath on lung bases but clear to auscultation. S1-S2 audible no murmurs regular rhythm. Abdomen examination; soft, G-tube in place. Nontender, nondistended. No organomegaly. Bowel sounds audible. Extremity examination; no peripheral edema. FURNACE MASON examination; patient is stable paraplegia able to move upper extremities to moderate degree. Results Result Diagram: 05/23/16 0504 05/23/16 0504 Results 24 hrs Laboratory Tests Test 05/23/16 05:04 Anion Gap 16 Basophils # 0.0 Basophils % 0.7 Blood Urea Nitrogen 14 Calcium Level 9.3 Carbon Dioxide Level 32 H Chloride Level 101 Creatinine 0.63 Eosinophils # 0.5 Eosinophils % 9.0 H Glucose Level 99 Hematocrit 36.8 L Hemoglobin 12.0 L Lymphocytes # 1.5 Lymphocytes % 28.2 Mean Corpuscular Hemoglobin 31.2 Mean Corpuscular Hemoglobin Concent 32.6 Mean Corpuscular Volume 95.6 Mean Platelet Volume 12.7 H Monocytes # 0.3 Monocytes % 6.3 Neutrophils # 3.0 Neutrophils % 55.6 Nucleated Red Blood Cells # 0.0 Nucleated Red Blood Cells % 0.0 Platelet Count 230 Potassium Level 4.1 Red Blood Count 3.85 L Red Cell Distribution Width 12.9 Sodium Level 145 H White Blood Count 5.4 Medications Medications Current Medications Baclofen (Lioresal) 20 mg QID GTB Last administered on 05/23/16 08:59; Admin Dose 20 MG; Start 05/18/16 at 09:00 Cholecalciferol (Vitamin D) 2,000 unit DAILY GTB Last administered on 08:58; Admin Dose 2,000 UNIT; Start 05/18/16 at 09:00 Dicyclomine HCl (Bentyl) 10 mg BID GTB Last administered on 05/22/16 21:15; Admin Dose 10 MG; Start 05/18/16 at 09:00 Diphenhydramine HCl (Benadryl) 25 mg DAILY PRN GTB ITCHING; Start 05/18/16 at 04 :30 Enoxaparin Sodium (Lovenox) 40 mg DAILY SC Last administered on 05/23/16 09:15 ; Admin Dose 40 MG; Start 05/18/16 at 09:00 Escitalopram Oxalate (Lexapro) 10 mg DAILY GTB Last administered on 05/23/16 08:58; Admin Dose 10 MG; Start 05/18/16 at 09:00 Lansoprazole (Prevacid) 30 mg DAILY@06 GTB Last administered on 05/23/16 05:42 ; Admin Dose 30 MG; Start 05/18/16 at 06:00 Lorazepam (Ativan) 1 mg HS GTB Last administered on 05/22/16 21:15; Admin Dose 1 MG; Start 05/18/16 at 21:00 Methenamine (Hiprex) 1 gm BID GTB Last administered on 05/22/16 21:16; Admin Dose 1 GM; Start 05/18/16 at 09:00 Fish Oil (Fish Oil) 1,000 mg DAILY PO Last administered on 05/23/16 08:59; Admin Dose 1,000 MG; Start 05/18/16 at 09:00 Saccharomyces Boulardii (Florastor) 250 mg BID GTB Last administered on 08:58; Admin Dose 250 MG; Start 05/18/16 at 09:00 Zolpidem Tartrate (Ambien) 5 mg QHS PRN GTB INSOMNIA Last administered on 00:15; Admin Dose 5 MG; Start 05/18/16 at 04:30 Miscellaneous Information 40 mg MON,WED,FRI SQ ; Start 05/18/16 at 04:30; Status UNV Miscellaneous Information 1 tbs Q6 MM ; Start 05/18/16 at 06:00; Status UNV Levetiracetam (Keppra Liquid) 1,000 mg BID GTB Last administered on 05/23/16 08:58; Admin Dose 1,000 MG; Start 05/18/16 at 09:00 Potassium Chloride (Potassium Chloride Pwd/Soln) 20 meq DAILY GTB Last administered on 05/23/16 08:58; Admin Dose 20 MEQ; Start 05/18/16 at 09:00 Aspirin (Aspirin) 81 mg DAILY GTB Last administered on 05/23/16 08:58; Admin Dose 81 MG; Start 05/18/16 at 09:00 Miscellaneous Information Glatiramer Acetate (Copaxone)... Q8H XX ; Start at 08:00 Ertapenem 1 gm/ Sodium Chloride 100 ml @ 200 mls/hr Q24H IVPB Last administered on 05/22/16 13:33; Admin Dose 200 MLS/HR; Start 05/20/16 at 14:00 Vancomycin HCl/ Sodium Chloride (Vancocin/NS) 250 ml @ 83.333 mls/ hr Q12H IVPB Last administered on 05/22/16 23:59; Admin Dose 83.333 MLS/HR; Start 12/29 at 12:00 Miscellaneous Information (*Rx Drug Level Order Reminder*) VANCOMYCIN TROUGH AT 2300 ONCE ONCE XX ; Start 05/23/16 at 23:00; Stop 05/23/16 at 23:01 BEN AVALOS May 23, 2016 12:11
[2016-05-23] MEDS: METHENAMINE 1 GM TAB GTB SCH ×2 (12:20→20:53)
[2016-05-23] MEDS: DICYCLOMINE 10 MG CAP GTB SCH ×2 (12:20→20:53)
[2016-05-23] MEDS: VANCOMYCIN 1.5 GM in SOD CHLORIDE 0.9% 250 ML IVPB SCH (12:20)
--- NOTE | 2016-05-23 13:59 | PN ---
DATE: 05/23/2016 SUBJECTIVE: Urinary retention, neurogenic bladder and urinary tract infection. The patient is comfortable. He denies having any pain. The patient asked me why is he not getting the yost irrigated with renacedin here like he does in the [facility]. The first thing is that the renacedin is not available in the hospital and the second is that he is getting hydrated. He is getting antibiotics here and with good urine output, and the catheter was just changed he should not have any problem forming a stone. He could continue that, however, in the [facility]. OBJECTIVE: VITAL SIGNS: Temperature is 98.6, blood pressure 122/68, respiration is 16, pulse is 71. ABDOMEN: Soft. Yost catheter is draining clear urine. Urine culture from May 19 was showing enterococcus. The patient is on vancomycin and ertapenem and also is on Hiprex to try to acidify the urine and prevent infections. RECOMMENDATION: To keep the Yost catheter in and I just changed it a couple of days back, and that will need to be changed again in the future. Dictated By: ARIAN CORTES/DORON Conf#: [id number] DID#: [id number] LOPEZ
[2016-05-23] MEDS: ERTAPENEM SODIUM 1 GM in SOD CHLORIDE 0.9% 100 ML IVPB SCH (14:00)
[2016-05-23] MEDS: LORAZEPAM 1 MG TAB GTB SCH (20:53)
[2016-05-24] MEDS: VANCOMYCIN 1.5 GM in SOD CHLORIDE 0.9% 250 ML IVPB SCH ×2 (00:20→11:22)
[2016-05-24] MEDS: [UNRECOGNIZED DRUG - OTHER] MM SCH ×4 (00:20→17:27)
[2016-05-24] MEDS: E LYTES MM SCH ×4 (00:20→17:27)
[2016-05-24] MEDS: ZOLPIDEM 5 MG TAB GTB PRN (00:20)
[2016-05-24] MEDS: LANSOPRAZOLE 30 MG CAP GTB SCH (05:41)
[2016-05-24 06:05] LABS: ADD SCAN DIFF NO
[2016-05-24 06:06] LABS: BASOPHIL # 0.1 10^3/ul (0.0-0.1); BASOPHILS % 0.7 % (0.0-2.0); EOSINOPHILS # 0.5 10^3/ul (0.0-0.5); EOSINOPHILS % 7.1 % (0.0-7.0); HEMATOCRIT 36.8 % (42.0-52.0); HEMOGLOBIN 11.9 g/dl (14.0-18.0); LYMPHOCYTES # 1.9 10^3/ul (0.8-2.9); LYMPHOCYTES % 25.1 % (15.0-51.0); MEAN CORPUSCULAR HEMOGLOBIN 30.9 pg (29.0-33.0); MEAN CORPUSCULAR HGB CONC 32.3 g/dl (32.0-37.0); MEAN CORPUSCULAR VOLUME 95.6 fl (82.0-101.0); MEAN PLATELET VOLUME 12.6 fl (7.4-10.4); MONOCYTE # 0.5 10^3/ul (0.3-0.9); MONOCYTES % 6.3 % (0.0-11.0); NEUTROPHIL # 4.5 10^3/ul (1.6-7.5); NEUTROPHILS % 60.1 % (39.0-77.0); PLATELET COUNT 236 10^3/UL (140-415); RED BLOOD COUNT 3.85 10^6/ul (4.70-6.10); WHITE BLOOD COUNT 7.5 10^3/ul (4.8-10.8)
[2016-05-24 06:43] LABS: POTASSIUM 3.6 mmol/L (3.5-5.1)
[2016-05-24 06:45] LABS: CREATININE 0.59 mg/dl (0.61-1.24)
[2016-05-24 06:46] LABS: CALCIUM 9.2 mg/dl (8.4-10.2)
[2016-05-24 07:46] VITALS: BP 119/72; RESP 22
[2016-05-24] MEDS: GLATIRAMER ACETATE 40 MG XX SCH ×3 (08:00→15:17)
[2016-05-24] MEDS: CHOLECALCIFEROL 2,000 UNIT CAP GTB SCH (09:42)
[2016-05-24] MEDS: ASPIRIN 81 MG TAB GTB SCH (09:42)
[2016-05-24] MEDS: FISH OIL 1,000 MG CAP PO SCH (09:42)
[2016-05-24] MEDS: LEVETIRACETAM (100 MG/ML) 5ML CUP GTB SCH ×2 (09:42→22:39)
[2016-05-24] MEDS: ESCITALOPRAM 10 MG TAB GTB SCH (09:42)
[2016-05-24] MEDS: SACCHAROMYCES BOULARDII 250 MG CAP GTB SCH ×2 (09:42→22:39)
[2016-05-24] MEDS: POTASSIUM CHLORIDE 20 MEQ POWDER FOR ORAL SOLN GTB SCH (09:42)
[2016-05-24] MEDS: BACLOFEN 10 MG TAB GTB SCH ×4 (09:43→22:39)
[2016-05-24] MEDS: ENOXAPARIN 40 MG/0.4 ML SYG SC SCH (09:54)
[2016-05-24] MEDS: ALBUTEROL/IPRATROPIUM (NEB) 3 ML AMP HHN SCH ×3 (10:13→19:22)
[2016-05-24] MEDS: DICYCLOMINE 10 MG CAP GTB SCH ×2 (11:18→22:39)
[2016-05-24] MEDS: METHENAMINE 1 GM TAB GTB SCH ×2 (11:19→22:39)
--- NOTE | 2016-05-24 11:44 | PN ---
Date/Time of Note Date/Time of Note DATE: 05/24/16 TIME: 11:28 Assessment/Plan VTE Prophylaxis VTE Prophylaxis Intervention: LMWH, SCD's Lines/Catheters IV Catheter Type (from [facility]): [place] [facility] Urinary Cath still in place: Yes Assessment/Plan Assessment/Plan 1. Healthcare-acquired pneumonia. Dr. Restrepo is following patient in infectious disease consultation. Dr. Newberry is following patient in pulmonology consultation. Continue oxygen supplementation and bronchodilators and pulmonary toilet. 2. Urinary tract infection, urine cultures positive for E. coli ESBL and enterococcus, continue contact isolation, continue abx per ID. 3. Advanced multiple sclerosis. Continue patient on Copaxone. 4. Dysphagia with G-tube. Continue G-tube feeding, monitor residual. Continue aspiration precautions. 5. Neurogenic bladder with chronic Brock catheter. Status post Brock catheter changed by Dr. Douglas on 05/21. 6. Hyperlipidemia. Continue Tricor. 7. Bedbound status. Continue to assist patient with activities of daily living. Continue Lovenox for deep venous thrombosis prophylaxis. Continue Prevacid for peptic ulcer disease prophylaxis. at bed side, all questions answered.Further recommendations based on clinical course. Plan of care discussed with Dr. Brown. Subjective 24 Hr Interval Summary Constitutional: requiring IVF, requiring O2 Eyes: no complaints ENT: no complaints Respiratory: no complaints Cardiovascular: no complaints Gastrointestinal: no complaints Genitourinary: no complaints Musculoskeletal: no complaints Skin: no complaints Neurologic: no complaints Endocrine: no complaints Lymphatic: no complaints Psychological: no complaints Exam/Review of Systems Vital Signs Vitals Vital Signs Date Time Temp Pulse Resp B/P Pulse Ox O2 Delivery O2 Flow Rate FiO2 05/24/16 10:15 70 22 95 Nasal Cannula 4.0 05/24/16 07:46 98.2 119/72 Intake and Output 05/23/16 05/23/16 05/24/16 15:00 23:00 07:00 Intake Total 1250 ml 1150 ml Output Total 1700 ml 1450 ml Balance -450 ml -300 ml Exam Constitutional: alert, oriented, well developed Psych: no complaints Head: atraumatic Eyes: EOMI, nl sclera ENMT: nl external ears & nose Neck: non-tender Cardiovascular: nl pulses Gastrointestinal: non-tender, soft Musculoskeletal: muscle weakness Extremities: normal pulses Neurological: nl speech, other Skin: other Lymph: nontender Results Result Diagram: 05/24/16 0513 05/24/16 0513 Results 24 hrs Laboratory Tests Test 05/23/16 23:22 05/24/16 05:13 Vancomycin Level Trough 17.7 Anion Gap 14 Basophils # 0.1 Basophils % 0.7 Blood Urea Nitrogen 13 Calcium Level 9.2 Carbon Dioxide Level 31 Chloride Level 101 Creatinine 0.59 L Eosinophils # 0.5 Eosinophils % 7.1 H Glucose Level 90 Hematocrit 36.8 L Hemoglobin 11.9 L Lymphocytes # 1.9 Lymphocytes % 25.1 Mean Corpuscular Hemoglobin 30.9 Mean Corpuscular Hemoglobin Concent 32.3 Mean Corpuscular Volume 95.6 Mean Platelet Volume 12.6 H Monocytes # 0.5 Monocytes % 6.3 Neutrophils # 4.5 Neutrophils % 60.1 Nucleated Red Blood Cells # 0.0 Nucleated Red Blood Cells % 0.0 Platelet Count 236 Potassium Level 3.6 Red Blood Count 3.85 L Red Cell Distribution Width 13.0 Sodium Level 142 White Blood Count 7.5 # Medications Medications Current Medications Baclofen (Lioresal) 20 mg QID GTB Last administered on 05/24/16 09:43; Admin Dose 20 MG; Start 05/18/16 at 09:00 Cholecalciferol (Vitamin D) 2,000 unit DAILY GTB Last administered on 09:42; Admin Dose 2,000 UNIT; Start 05/18/16 at 09:00 Dicyclomine HCl (Bentyl) 10 mg BID GTB Last administered on 05/24/16 11:18; Admin Dose 10 MG; Start 05/18/16 at 09:00 Diphenhydramine HCl (Benadryl) 25 mg DAILY PRN GTB ITCHING; Start 05/18/16 at 04 :30 Enoxaparin Sodium (Lovenox) 40 mg DAILY SC Last administered on 05/24/16 09:54 ; Admin Dose 40 MG; Start 05/18/16 at 09:00 Escitalopram Oxalate (Lexapro) 10 mg DAILY GTB Last administered on 05/24/16 09:42; Admin Dose 10 MG; Start 05/18/16 at 09:00 Lansoprazole (Prevacid) 30 mg DAILY@06 GTB Last administered on 05/24/16 05:41 ; Admin Dose 30 MG; Start 05/18/16 at 06:00 Lorazepam (Ativan) 1 mg HS GTB Last administered on 05/23/16 20:53; Admin Dose 1 MG; Start 05/18/16 at 21:00 Methenamine (Hiprex) 1 gm BID GTB Last administered on 05/24/16 11:19; Admin Dose 1 GM; Start 05/18/16 at 09:00 Fish Oil (Fish Oil) 1,000 mg DAILY PO Last administered on 05/24/16 09:42; Admin Dose 1,000 MG; Start 05/18/16 at 09:00 Saccharomyces Boulardii (Florastor) 250 mg BID GTB Last administered on 09:42; Admin Dose 250 MG; Start 05/18/16 at 09:00 Zolpidem Tartrate (Ambien) 5 mg QHS PRN GTB INSOMNIA Last administered on 00:20; Admin Dose 5 MG; Start 05/18/16 at 04:30 Miscellaneous Information 40 mg MON,WED,FRI SQ ; Start 05/18/16 at 04:30; Status UNV Miscellaneous Information 1 tbs Q6 MM ; Start 05/18/16 at 06:00; Status UNV Levetiracetam (Keppra Liquid) 1,000 mg BID GTB Last administered on 05/24/16 09:42; Admin Dose 1,000 MG; Start 05/18/16 at 09:00 Potassium Chloride (Potassium Chloride Pwd/Soln) 20 meq DAILY GTB Last administered on 05/24/16 09:42; Admin Dose 20 MEQ; Start 05/18/16 at 09:00 Aspirin (Aspirin) 81 mg DAILY GTB Last administered on 05/24/16 09:42; Admin Dose 81 MG; Start 05/18/16 at 09:00 Miscellaneous Information Glatiramer Acetate (Copaxone)... Q8H XX ; Start at 08:00 Ertapenem 1 gm/ Sodium Chloride 100 ml @ 200 mls/hr Q24H IVPB Last administered on 05/23/16 14:00; Admin Dose 200 MLS/HR; Start 05/20/16 at 14:00 Vancomycin HCl 1.5 gm/Sodium Chloride 250 ml @ 83.333 mls/ hr Q12H IVPB Last administered on 05/24/16t 11:22; Admin Dose 83.333 MLS/HR; Start 05/22/16 at 12: 00; Stop 05/24/16 at 20:00 Vancomycin HCl/ Sodium Chloride (Vancocin/NS) 250 ml @ 83.333 mls/ hr Q12H IVPB ; Start 05/25/16 at 00:00 MIRIAN JHAVERI May 24, 2016 11:39
[2016-05-24] MEDS: ERTAPENEM SODIUM 1 GM in SOD CHLORIDE 0.9% 100 ML IVPB SCH (14:02)
--- NOTE | 2016-05-24 16:09 | CONS ---
Date/Time of Note Date/Time of Note DATE: 05/24/16 TIME: 16:07 Assessment/Plan Assessment/Plan Chief Complaint/Hosp Course ID PROGRESS NOTE TOTAL ABX DAY #7 => 1. IV vancomycin #7 2. Invanz #5 24H INTERVAL SUMMARY * Clinically status quo -- no new issues, MRSA Nares swab sent last night still pending-> Add Bactroban to nares if returns (+) * A/A/O stable, still requires suction of secretions prior to p-[place] valve, NAD * MICROBIOLOGY: Urine culture growing E coli ESBL and Enterococcus species. E coli ESBL is resistant to cefepime, susceptible to amikacin, nitrofurantoin and Zosyn, also imipenem. Blood culture had been negative. Endotracheal aspirate growing Klebsiella ESBL susceptible to cefepime, imipenem. PHYSICAL EXAMINATION: GENERAL: 65 yo M lethargic HEENT: Unremarkable NECK: Trach secure CHEST: Equal chest rise bilaterally, without dyspnea on observation HEART: Pulse RRR ABDOMEN: Soft/peg EXTREMITIES: Warm SKIN: See hard chart skin assessment ID ASSESSMENT: 65 yo M w/PMHx advanced multiple-sclerosis w/neurodegeneration, Trach/Peg admit with: 1. Systemic inflammatory response syndrome due to #2 &#3 * BCx(-) 2. Recurrent complicated polymicrobial urinary tract infection. 3. Healthcare-associated pneumonia. * 05/19/16 CXR: 1. Worsening right lower lobe infiltrate with new subsegmental atelectasis in the left lower lung field. * RESPIRATORY CULTURE Final Organism 1 K PNEUMO ESBL QUANTITY SCANT GROWTH . MULTI DRUG RESISTANT ORGANISM Organism 2 SERRATIA MARCESCENS QUANTITY SCANT GROWTH Organism 3 METHICILLIN RESISTANT S.AUREUS QUANTITY 3+ . MULTI DRUG RESISTANT ORGANISM ()MRSA Nares - not checked INVASIVES: Trach, Brock, and PEG. ABX ALLERGY: KNDA CURRENT ABX: 1. IV vancomycin. 2. Invanz ID RECOMMENDATIONS: 1. Continue current ABX at least 10 days Invanz 2. Swab nares for MRSA=> MRSA Nares swab sent last night still pending-> Add Bactroban to nares if returns (+) d/w pt/spouse . Problems: Consultation Date/Type/Reason Admit Date/Time May 18, 2016 at 12:33 Initial Consult Date 05/18/16 Type of Consultation: ID Exam/Review of Systems Vital Signs Vitals Vital Signs Date Time Temp Pulse Resp B/P Pulse Ox O2 Delivery O2 Flow Rate FiO2 05/24/16 14:37 69 20 96 Nasal Cannula 4.0 05/24/16 07:46 98.2 119/72 Intake and Output 05/23/16 05/23/16 05/24/16 15:00 23:00 07:00 Intake Total 1250 ml 1150 ml Output Total 1700 ml 1450 ml Balance -450 ml -300 ml Results Result Diagram: 05/24/16 0513 05/24/16 0513 Results 24 hrs Laboratory Tests Test 05/23/16 23:22 05/24/16 05:13 Vancomycin Level Trough 17.7 Anion Gap 14 Basophils # 0.1 Basophils % 0.7 Blood Urea Nitrogen 13 Calcium Level 9.2 Carbon Dioxide Level 31 Chloride Level 101 Creatinine 0.59 L Eosinophils # 0.5 Eosinophils % 7.1 H Glucose Level 90 Hematocrit 36.8 L Hemoglobin 11.9 L Lymphocytes # 1.9 Lymphocytes % 25.1 Mean Corpuscular Hemoglobin 30.9 Mean Corpuscular Hemoglobin Concent 32.3 Mean Corpuscular Volume 95.6 Mean Platelet Volume 12.6 H Monocytes # 0.5 Monocytes % 6.3 Neutrophils # 4.5 Neutrophils % 60.1 Nucleated Red Blood Cells # 0.0 Nucleated Red Blood Cells % 0.0 Platelet Count 236 Potassium Level 3.6 Red Blood Count 3.85 L Red Cell Distribution Width 13.0 Sodium Level 142 White Blood Count 7.5 # Medications Medications Current Medications Baclofen (Lioresal) 20 mg QID GTB Last administered on 05/24/16 14:02; Admin Dose 20 MG; Start 05/18/16 at 09:00 Cholecalciferol (Vitamin D) 2,000 unit DAILY GTB Last administered on 09:42; Admin Dose 2,000 UNIT; Start 05/18/16 at 09:00 Dicyclomine HCl (Bentyl) 10 mg BID GTB Last administered on 05/24/16 11:18; Admin Dose 10 MG; Start 05/18/16 at 09:00 Diphenhydramine HCl (Benadryl) 25 mg DAILY PRN GTB ITCHING; Start 05/18/16 at 04 :30 Enoxaparin Sodium (Lovenox) 40 mg DAILY SC Last administered on 05/24/16 09:54 ; Admin Dose 40 MG; Start 05/18/16 at 09:00 Escitalopram Oxalate (Lexapro) 10 mg DAILY GTB Last administered on 05/24/16 09:42; Admin Dose 10 MG; Start 05/18/16 at 09:00 Lansoprazole (Prevacid) 30 mg DAILY@06 GTB Last administered on 05/24/16 05:41 ; Admin Dose 30 MG; Start 05/18/16 at 06:00 Lorazepam (Ativan) 1 mg HS GTB Last administered on 05/23/16 20:53; Admin Dose 1 MG; Start 05/18/16 at 21:00 Methenamine (Hiprex) 1 gm BID GTB Last administered on 05/24/16 11:19; Admin Dose 1 GM; Start 05/18/16 at 09:00 Fish Oil (Fish Oil) 1,000 mg DAILY PO Last administered on 05/24/16 09:42; Admin Dose 1,000 MG; Start 05/18/16 at 09:00 Saccharomyces Boulardii (Florastor) 250 mg BID GTB Last administered on 09:42; Admin Dose 250 MG; Start 05/18/16 at 09:00 Zolpidem Tartrate (Ambien) 5 mg QHS PRN GTB INSOMNIA Last administered on 00:20; Admin Dose 5 MG; Start 05/18/16 at 04:30 Miscellaneous Information 40 mg MON,WED,FRI SQ ; Start 05/18/16 at 04:30; Status UNV Miscellaneous Information 1 tbs Q6 MM ; Start 05/18/16 at 06:00; Status UNV Levetiracetam (Keppra Liquid) 1,000 mg BID GTB Last administered on 05/24/16 09:42; Admin Dose 1,000 MG; Start 05/18/16 at 09:00 Potassium Chloride (Potassium Chloride Pwd/Soln) 20 meq DAILY GTB Last administered on 05/24/16 09:42; Admin Dose 20 MEQ; Start 05/18/16 at 09:00 Aspirin (Aspirin) 81 mg DAILY GTB Last administered on 05/24/16 09:42; Admin Dose 81 MG; Start 05/18/16 at 09:00 Miscellaneous Information Glatiramer Acetate (Copaxone)... Q8H XX ; Start at 08:00 Ertapenem 1 gm/ Sodium Chloride 100 ml @ 200 mls/hr Q24H IVPB Last administered on 05/24/16 14:02; Admin Dose 200 MLS/HR; Start 05/20/16 at 14:00 Vancomycin HCl 1.5 gm/Sodium Chloride 250 ml @ 83.333 mls/ hr Q12H IVPB Last administered on 05/24/16 11:22; Admin Dose 83.333 MLS/HR; Start 05/22/16 at 12: 00; Stop 05/24/16 at 20:00 Vancomycin HCl/ Sodium Chloride (Vancocin/NS) 250 ml @ 83.333 mls/ hr Q12H IVPB ; Start 05/25/16 at 00:00 EMMA SALCIDO NP May 24, 2016 16:09
[2016-05-24 19:00] VITALS: BP 109/56; RESP 18
[2016-05-24] MEDS: LORAZEPAM 1 MG TAB GTB SCH (21:00)
[2016-05-25] MEDS: LORAZEPAM 1 MG TAB GTB SCH ×2 (00:05→21:00)
[2016-05-25] MEDS: E LYTES MM SCH ×4 (00:06→17:45)
[2016-05-25] MEDS: [UNRECOGNIZED DRUG - OTHER] MM SCH ×4 (00:06→17:45)
[2016-05-25] MEDS: VANCOMYCIN 1.25 GM in SOD CHLORIDE 0.9% 250 ML IVPB SCH ×2 (00:06→12:35)
[2016-05-25] MEDS: ALBUTEROL/IPRATROPIUM (NEB) 3 ML AMP HHN PRN (00:59)
[2016-05-25 05:30] LABS: ADD SCAN DIFF NO
[2016-05-25 05:33] LABS: BASOPHILS % 0.6 % (0.0-2.0); EOSINOPHILS # 0.4 10^3/ul (0.0-0.5); EOSINOPHILS % 6.3 % (0.0-7.0); HEMATOCRIT 37.5 % (42.0-52.0); LYMPHOCYTES # 1.6 10^3/ul (0.8-2.9); LYMPHOCYTES % 25.2 % (15.0-51.0); MEAN CORPUSCULAR HEMOGLOBIN 30.5 pg (29.0-33.0); MEAN CORPUSCULAR VOLUME 95.2 fl (82.0-101.0); MEAN PLATELET VOLUME 12.5 fl (7.4-10.4); MONOCYTE # 0.5 10^3/ul (0.3-0.9); MONOCYTES % 7.6 % (0.0-11.0); NEUTROPHIL # 3.9 10^3/ul (1.6-7.5); NEUTROPHILS % 59.7 % (39.0-77.0); PLATELET COUNT 271 10^3/UL (140-415); RED BLOOD COUNT 3.94 10^6/ul (4.70-6.10); RED CELL DISTRIBUTION WIDTH 12.7 % (11.5-14.5); WHITE BLOOD COUNT 6.5 10^3/ul (4.8-10.8)
[2016-05-25 05:47] LABS: POTASSIUM 3.6 mmol/L (3.5-5.1)
[2016-05-25 05:50] LABS: CALCIUM 9.1 mg/dl (8.4-10.2); CREATININE 0.65 mg/dl (0.61-1.24)
[2016-05-25] MEDS: LANSOPRAZOLE 30 MG CAP GTB SCH (06:03)
[2016-05-25] MEDS: ALBUTEROL/IPRATROPIUM (NEB) 3 ML AMP HHN SCH ×3 (07:26→19:18)
[2016-05-25] MEDS: GLATIRAMER ACETATE 40 MG XX SCH ×3 (07:51→15:48)
[2016-05-25 08:21] VITALS: BP 112/67; RESP 16
[2016-05-25] MEDS: CHOLECALCIFEROL 2,000 UNIT CAP GTB SCH (09:15)
[2016-05-25] MEDS: FISH OIL 1,000 MG CAP PO SCH (09:15)
[2016-05-25] MEDS: LEVETIRACETAM (100 MG/ML) 5ML CUP GTB SCH ×2 (09:15→22:21)
[2016-05-25] MEDS: METHENAMINE 1 GM TAB GTB SCH ×2 (09:15→22:26)
[2016-05-25] MEDS: DICYCLOMINE 10 MG CAP GTB SCH ×2 (09:15→22:21)
[2016-05-25] MEDS: ASPIRIN 81 MG TAB GTB SCH (09:15)
[2016-05-25] MEDS: POTASSIUM CHLORIDE 20 MEQ POWDER FOR ORAL SOLN GTB SCH (09:15)
[2016-05-25] MEDS: SACCHAROMYCES BOULARDII 250 MG CAP GTB SCH ×2 (09:16→22:21)
[2016-05-25] MEDS: ESCITALOPRAM 10 MG TAB GTB SCH (09:16)
[2016-05-25] MEDS: BACLOFEN 10 MG TAB GTB SCH ×4 (09:16→22:22)
[2016-05-25] MEDS: ENOXAPARIN 40 MG/0.4 ML SYG SC SCH (09:25)
--- NOTE | 2016-05-25 12:04 | PN ---
DATE: 05/25/2016 SUBJECTIVE: No acute changes. The patient is alert, feels good, looks comfortable, no fevers. LABORATORY DATA: WBC 6.5, no shift, no bands. BUN 13, creatinine 0.65. ANTIMICROBIALS: 1. Invanz. 2. Vancomycin. INDWELLINGS: Trach, Brock. PHYSICAL EXAMINATION: GENERAL: This is a chronically ill-appearing, elderly man who is awake, in no distress. HEENT: Head atraumatic, normocephalic. Sclerae anicteric. Buccal mucosa pink. NECK: Supple. Tracheostomy present. CHEST: Rise symmetrical. Breath sounds diminished at the bases. HEART: S1, S2. ABDOMEN: Soft. Bowel tones present. EXTREMITIES: Without cyanosis. ASSESSMENT: 1. Resolving sepsis. 2. Recurrent polymicrobial urinary tract infection. 3. Healthcare-associated pneumonia. 4. Neurogenic bladder. 5. Advantaged multiple sclerosis. PLAN: The patient remains stable, covered with appropriate antimicrobials, today is day #6. Urolog y on case. Continue on current antibiotics for 4 more days. Dictated By: BIANCA RUBIO VOIP TECHNICIAN for JOE COULTER/DORON Conf#: [id number] DID#: [id number]
[2016-05-25] MEDS: ERTAPENEM SODIUM 1 GM in SOD CHLORIDE 0.9% 100 ML IVPB SCH (15:47)
--- NOTE | 2016-05-25 17:48 | PN ---
Date/Time of Note Date/Time of Note DATE: 05/25/16 TIME: 17:46 Assessment/Plan VTE Prophylaxis VTE Prophylaxis Intervention: SCD's Lines/Catheters IV C[facility]ter Type (from [facility] Saline Lock Central line still needed: Yes Urinary Cath still in place: Yes Reason Cath still needed: urinary retention Assessment/Plan Chief Complaint/Hosp Course ASSESSMENT AND PLAN: 1. Healthcare-acquired pneumonia. Dr. Restrepo is following patient in infectious disease consultation. Dr. Newberry is following patient in pulmonology consultation. Continue oxygen supplementation and bronchodilators and pulmonary toilet. 2. Urinary tract infection, urine cultures positive for E. coli ESBL and enterococcus, continue contact isolation, continue abx per ID. 3. Advanced multiple sclerosis. Continue patient on Copaxone. 4. Dysphagia with G-tube. Continue G-tube feeding, monitor residual. Continue aspiration precautions. 5. Neurogenic bladder with chronic Brock catheter. Status post Brock catheter changed by Dr. Douglas on 05/21. 6. Hyperlipidemia. Continue Tricor. 7. Bedbound status. Continue to assist patient with activities of daily living. Continue Lovenox for deep venous thrombosis prophylaxis. Continue Prevacid for peptic ulcer disease prophylaxis. Plan of care and patient's condition discussed with patient's and patient's at the bedside. Further recommendations based on clinical course. Plan of care discussed with Dr. Bronw. Problems: Subjective 24 Hr Interval Summary Free Text/Dictation Patient denies any fever denies any pain, tolerates G-tube feeding. Exam/Review of Systems Vital Signs Vitals Vital Signs Date Time Temp Pulse Resp B/P Pulse Ox O2 Delivery O2 Flow Rate FiO2 05/25/16 14:30 65 18 96 Nasal Cannula 4.0 05/25/16 08:21 98.1 112/67 Intake and Output 05/24/16 05/24/16 05/25/16 15:00 23:00 07:00 Intake Total 350 ml 1150 ml Output Total 2000 ml 2100 ml Balance -1650 ml -950 ml Exam PHYSICAL ASSESSMENT: GENERAL: Well-developed, well-nourished male, currently is awake, alert. HEENT: Head is atraumatic, normocephalic. PERRLA. NECK: Supple. Patient has a tracheostomy at the base of the neck with Passy- [place] valve. CHEST: Scattered rhonchi bilaterally, diminished at the bases. No wheezes noted. CARDIOVASCULAR: Normal S1, S2. No murmurs, gallops, clicks, rubs noted. ABDOMEN: Round, soft, nondistended, nontender. G-tube with intact stoma. There is no guarding or rebound tenderness. GENITOURINARY: Patient has a Brock catheter with yellow urine with slight sediment. EXTREMITIES: There is no edema, clubbing, cyanosis. Pulses equal bilaterally, 2+. MUSCULOSKELETAL: There is bilateral lower extremity muscle wasting. SKIN: There is no rash, petechiae noted. NEUROLOGIC: Patient is awake, alert, and oriented x3. Neurological status at the baseline. Results Result Diagram: 05/25/16 0430 05/25/16 0430 Results 24 hrs Laboratory Tests Test 05/25/16 04:30 Anion Gap 14 Basophils # 0.0 Basophils % 0.6 Blood Urea Nitrogen 13 Calcium Level 9.1 Carbon Dioxide Level 33 H Chloride Level 101 Creatinine 0.65 Eosinophils # 0.4 Eosinophils % 6.3 Glucose Level 83 Hematocrit 37.5 L Hemoglobin 12.0 L Lymphocytes # 1.6 Lymphocytes % 25.2 Mean Corpuscular Hemoglobin 30.5 Mean Corpuscular Hemoglobin Concent 32.0 Mean Corpuscular Volume 95.2 Mean Platelet Volume 12.5 H Monocytes # 0.5 Monocytes % 7.6 Neutrophils # 3.9 Neutrophils % 59.7 Nucleated Red Blood Cells # 0.0 Nucleated Red Blood Cells % 0.0 Platelet Count 271 Potassium Level 3.6 Red Blood Count 3.94 L Red Cell Distribution Width 12.7 Sodium Level 144 White Blood Count 6.5 Medications Medications Current Medications Baclofen (Lioresal) 20 mg QID GTB Last administered on 05/25/16 17:44; Admin Dose 20 MG; Start 05/18/16 at 09:00 Cholecalciferol (Vitamin D) 2,000 unit DAILY GTB Last administered on 09:15; Admin Dose 2,000 UNIT; Start 05/18/16 at 09:00 Dicyclomine HCl (Bentyl) 10 mg BID GTB Last administered on 05/25/16 09:15; Admin Dose 10 MG; Start 05/18/16 at 09:00 Diphenhydramine HCl (Benadryl) 25 mg DAILY PRN GTB ITCHING; Start 05/18/16 at 04 :30 Enoxaparin Sodium (Lovenox) 40 mg DAILY SC Last administered on 05/25/16 09:25 ; Admin Dose 40 MG; Start 05/18/16 at 09:00 Escitalopram Oxalate (Lexapro) 10 mg DAILY GTB Last administered on 05/25/16 09:16; Admin Dose 10 MG; Start 05/18/16 at 09:00 Lansoprazole (Prevacid) 30 mg DAILY@06 GTB Last administered on 05/25/16 06:03 ; Admin Dose 30 MG; Start 05/18/16 at 06:00 Lorazepam (Ativan) 1 mg HS GTB Last administered on 05/25/16 00:05; Admin Dose 1 MG; Start 05/18/16 at 21:00 Methenamine (Hiprex) 1 gm BID GTB Last administered on 05/25/16 09:15; Admin Dose 1 GM; Start 05/18/16 at 09:00 Fish Oil (Fish Oil) 1,000 mg DAILY PO Last administered on 05/25/16 09:15; Admin Dose 1,000 MG; Start 05/18/16 at 09:00 Saccharomyces Boulardii (Florastor) 250 mg BID GTB Last administered on 09:16; Admin Dose 250 MG; Start 05/18/16 at 09:00 Zolpidem Tartrate (Ambien) 5 mg QHS PRN GTB INSOMNIA Last administered on 00:20; Admin Dose 5 MG; Start 05/18/16 at 04:30 Miscellaneous Information 40 mg MON,WED,FRI SQ ; Start 05/18/16 at 04:30; Status UNV Miscellaneous Information 1 tbs Q6 MM ; Start 05/18/16 at 06:00; Status UNV Levetiracetam (Keppra Liquid) 1,000 mg BID GTB Last administered on 05/25/16 09:15; Admin Dose 1,000 MG; Start 05/18/16 at 09:00 Potassium Chloride (Potassium Chloride Pwd/Soln) 20 meq DAILY GTB Last administered on 05/25/16 09:15; Admin Dose 20 MEQ; Start 05/18/16 at 09:00 Aspirin (Aspirin) 81 mg DAILY GTB Last administered on 05/25/16 09:15; Admin Dose 81 MG; Start 05/18/16 at 09:00 Miscellaneous Information Glatiramer Acetate (Copaxone)... Q8H XX ; Start at 08:00 Ertapenem 1 gm/ Sodium Chloride 100 ml @ 200 mls/hr Q24H IVPB Last administered on 05/25/16 15:47; Admin Dose 200 MLS/HR; Start 05/20/16 at 14:00 Vancomycin HCl/ Sodium Chloride (Vancocin/NS) 250 ml @ 83.333 mls/ hr Q12H IVPB Last administered on 05/25/16 12:35; Admin Dose 83.333 MLS/HR; Start at 00:00 TAYA PATINO May 25, 2016 17:48
[2016-05-25 19:29] VITALS: BP 115/63; RESP 17
[2016-05-26] MEDS: LORAZEPAM 1 MG TAB GTB SCH (00:18)
[2016-05-26] MEDS: [UNRECOGNIZED DRUG - OTHER] MM SCH ×4 (00:18→18:28)
[2016-05-26] MEDS: E LYTES MM SCH ×4 (00:18→18:28)
[2016-05-26] MEDS: VANCOMYCIN 1.25 GM in SOD CHLORIDE 0.9% 250 ML IVPB SCH ×2 (00:19→12:27)
[2016-05-26] MEDS: ALBUTEROL/IPRATROPIUM (NEB) 3 ML AMP HHN PRN (01:51)
[2016-05-26 05:41] LABS: ADD SCAN DIFF NO
[2016-05-26 05:53] LABS: BASOPHIL # 0.1 10^3/ul (0.0-0.1); BASOPHILS % 0.9 % (0.0-2.0); EOSINOPHILS # 0.5 10^3/ul (0.0-0.5); EOSINOPHILS % 6.6 % (0.0-7.0); HEMATOCRIT 38.6 % (42.0-52.0); HEMOGLOBIN 12.4 g/dl (14.0-18.0); LYMPHOCYTES # 1.6 10^3/ul (0.8-2.9); LYMPHOCYTES % 23.3 % (15.0-51.0); MEAN CORPUSCULAR HEMOGLOBIN 30.4 pg (29.0-33.0); MEAN CORPUSCULAR HGB CONC 32.1 g/dl (32.0-37.0); MEAN CORPUSCULAR VOLUME 94.6 fl (82.0-101.0); MEAN PLATELET VOLUME 12.6 fl (7.4-10.4); MONOCYTE # 0.5 10^3/ul (0.3-0.9); MONOCYTES % 7.1 % (0.0-11.0); NEUTROPHIL # 4.2 10^3/ul (1.6-7.5); NEUTROPHILS % 61.5 % (39.0-77.0); PLATELET COUNT 273 10^3/UL (140-415); RED BLOOD COUNT 4.08 10^6/ul (4.70-6.10); RED CELL DISTRIBUTION WIDTH 12.9 % (11.5-14.5); WHITE BLOOD COUNT 6.8 10^3/ul (4.8-10.8)
[2016-05-26 06:00] LABS: POTASSIUM 3.8 mmol/L (3.5-5.1)
[2016-05-26 06:03] LABS: CREATININE 0.65 mg/dl (0.61-1.24)
[2016-05-26 06:04] LABS: CALCIUM 9.4 mg/dl (8.4-10.2)
[2016-05-26] MEDS: LANSOPRAZOLE 30 MG CAP GTB SCH (06:09)
[2016-05-26 07:44] VITALS: BP 114/56; RESP 18
[2016-05-26] MEDS: ALBUTEROL/IPRATROPIUM (NEB) 3 ML AMP HHN SCH ×3 (07:51→20:09)
[2016-05-26] MEDS: GLATIRAMER ACETATE 40 MG XX SCH ×3 (08:00→16:00)
[2016-05-26] MEDS: CHOLECALCIFEROL 2,000 UNIT CAP GTB SCH (09:42)
[2016-05-26] MEDS: BACLOFEN 10 MG TAB GTB SCH ×4 (09:42→20:57)
[2016-05-26] MEDS: SACCHAROMYCES BOULARDII 250 MG CAP GTB SCH ×2 (09:42→20:57)
[2016-05-26] MEDS: ESCITALOPRAM 10 MG TAB GTB SCH (09:42)
[2016-05-26] MEDS: POTASSIUM CHLORIDE 20 MEQ POWDER FOR ORAL SOLN GTB SCH (09:42)
[2016-05-26] MEDS: ASPIRIN 81 MG TAB GTB SCH (09:42)
[2016-05-26] MEDS: METHENAMINE 1 GM TAB GTB SCH ×2 (09:42→20:57)
[2016-05-26] MEDS: DICYCLOMINE 10 MG CAP GTB SCH ×2 (09:42→20:57)
[2016-05-26] MEDS: FISH OIL 1,000 MG CAP PO SCH (09:42)
[2016-05-26] MEDS: ENOXAPARIN 40 MG/0.4 ML SYG SC SCH (10:23)
[2016-05-26] MEDS: LEVETIRACETAM (100 MG/ML) 5ML CUP GTB SCH ×2 (11:26→20:56)
--- NOTE | 2016-05-26 15:36 | CONS ---
Date/Time of Note Date/Time of Note DATE: 05/26/16 TIME: 15:34 Assessment/Plan Assessment/Plan Chief Complaint/Hosp Course SUBJECTIVE: No acute changes. The patient is alert, feels good, looks comfortable, no fevers. ANTIMICROBIALS: 1. Invanz. 2. Vancomycin. INDWELLINGS: Trach, Brock. PHYSICAL EXAMINATION: GENERAL: This is a chronically ill-appearing, elderly man who is awake, in no distress. HEENT: Head atraumatic, normocephalic. Sclerae anicteric. Buccal mucosa pink. NECK: Supple. Tracheostomy present. CHEST: Rise symmetrical. Breath sounds diminished at the bases. HEART: S1, S2. ABDOMEN: Soft. Bowel tones present. EXTREMITIES: Without cyanosis. ASSESSMENT: 1. Resolving sepsis. 2. Recurrent polymicrobial urinary tract infection. 3. Healthcare-associated pneumonia. 4. Neurogenic bladder. 5. Advantaged multiple sclerosis. PLAN: The patient remains stable, covered with appropriate antimicrobials, today is day #7. Urology on case. Continue on current antibiotics for 3 more days. dw pt/ Problems: Consultation Date/Type/Reason Admit Date/Time May 18, 2016 at 12:33 Initial Consult Date 05/18/16 Type of Consultation: ID Exam/Review of Systems Vital Signs Vitals Vital Signs Date Time Temp Pulse Resp B/P Pulse Ox O2 Delivery O2 Flow Rate FiO2 05/26/16 13:22 96 2.0 05/26/16 13:21 76 20 28 05/26/16 12:39 Nasal Cannula 05/26/16 07:44 98.4 114/56 Intake and Output 05/25/16 05/25/16 05/26/16 15:00 23:00 07:00 Intake Total 350 ml 250 ml Output Total 1650 ml 1600 ml Balance -1300 ml -1350 ml Results Result Diagram: 05/26/16 0510 05/26/16 0510 Results 24 hrs Laboratory Tests Test 05/26/16 05:10 Anion Gap 15 Basophils # 0.1 Basophils % 0.9 Blood Urea Nitrogen 14 Calcium Level 9.4 Carbon Dioxide Level 32 H Chloride Level 101 Creatinine 0.65 Eosinophils # 0.5 Eosinophils % 6.6 Glucose Level 89 Hematocrit 38.6 L Hemoglobin 12.4 L Lymphocytes # 1.6 Lymphocytes % 23.3 Mean Corpuscular Hemoglobin 30.4 Mean Corpuscular Hemoglobin Concent 32.1 Mean Corpuscular Volume 94.6 Mean Platelet Volume 12.6 H Monocytes # 0.5 Monocytes % 7.1 Neutrophils # 4.2 Neutrophils % 61.5 Nucleated Red Blood Cells # 0.0 Nucleated Red Blood Cells % 0.0 Platelet Count 273 Potassium Level 3.8 Red Blood Count 4.08 L Red Cell Distribution Width 12.9 Sodium Level 144 White Blood Count 6.8 Medications Medications Current Medications Baclofen (Lioresal) 20 mg QID GTB Last administered on 05/26/16 13:48; Admin Dose 20 MG; Start 05/18/16 at 09:00 Cholecalciferol (Vitamin D) 2,000 unit DAILY GTB Last administered on 09:42; Admin Dose 2,000 UNIT; Start 05/18/16 at 09:00 Dicyclomine HCl (Bentyl) 10 mg BID GTB Last administered on 05/26/16 09:42; Admin Dose 10 MG; Start 05/18/16 at 09:00 Diphenhydramine HCl (Benadryl) 25 mg DAILY PRN GTB ITCHING; Start 05/18/16 at 04 :30 Enoxaparin Sodium (Lovenox) 40 mg DAILY SC Last administered on 05/26/16 10:23 ; Admin Dose 40 MG; Start 05/18/16 at 09:00 Escitalopram Oxalate (Lexapro) 10 mg DAILY GTB Last administered on 05/26/16 09:42; Admin Dose 10 MG; Start 05/18/16 at 09:00 Lansoprazole (Prevacid) 30 mg DAILY@06 GTB Last administered on 05/26/16 06:09 ; Admin Dose 30 MG; Start 05/18/16 at 06:00 Lorazepam (Ativan) 1 mg HS GTB Last administered on 05/26/16 00:18; Admin Dose 1 MG; Start 05/18/16 at 21:00 Methenamine (Hiprex) 1 gm BID GTB Last administered on 05/26/16 09:42; Admin Dose 1 GM; Start 05/18/16 at 09:00 Fish Oil (Fish Oil) 1,000 mg DAILY PO Last administered on 05/26/16 09:42; Admin Dose 1,000 MG; Start 05/18/16 at 09:00 Saccharomyces Boulardii (Florastor) 250 mg BID GTB Last administered on 09:42; Admin Dose 250 MG; Start 05/18/16 at 09:00 Zolpidem Tartrate (Ambien) 5 mg QHS PRN GTB INSOMNIA Last administered on 00:20; Admin Dose 5 MG; Start 05/18/16 at 04:30 Miscellaneous Information 40 mg MON,WED,FRI SQ ; Start 05/18/16 at 04:30; Status UNV Miscellaneous Information 1 tbs Q6 MM ; Start 05/18/16 at 06:00; Status UNV Levetiracetam (Keppra Liquid) 1,000 mg BID GTB Last administered on 05/26/16 11:26; Admin Dose 1,000 MG; Start 05/18/16 at 09:00 Potassium Chloride (Potassium Chloride Pwd/Soln) 20 meq DAILY GTB Last administered on 05/26/16 09:42; Admin Dose 20 MEQ; Start 05/18/16 at 09:00 Aspirin (Aspirin) 81 mg DAILY GTB Last administered on 05/26/16 09:42; Admin Dose 81 MG; Start 05/18/16 at 09:00 Miscellaneous Information Glatiramer Acetate (Copaxone)... Q8H XX ; Start at 08:00 Ertapenem 1 gm/ Sodium Chloride 100 ml @ 200 mls/hr Q24H IVPB Last administered on 05/25/16 15:47; Admin Dose 200 MLS/HR; Start 05/20/16 at 14:00 Vancomycin HCl/ Sodium Chloride (Vancocin/NS) 250 ml @ 83.333 mls/ hr Q12H IVPB Last administered on 05/26/16 12:27; Admin Dose 83.333 MLS/HR; Start at 00:00 Miscellaneous Information (*Rx Drug Level Order Reminder*) VANCOMYCIN TROUGH LEVEL... ONCE ONCE XX ; Start 05/27/16 at 11:00; Stop 05/27/16 at 11:01 BIANCA RUIBO NP May 26, 2016 15:36
[2016-05-26] MEDS: ERTAPENEM SODIUM 1 GM in SOD CHLORIDE 0.9% 100 ML IVPB SCH (16:02)
--- NOTE | 2016-05-26 16:09 | PN ---
Date/Time of Note Date/Time of Note DATE: 05/26/16 TIME: 16:07 Assessment/Plan VTE Prophylaxis VTE Prophylaxis Intervention: SCD's Lines/Catheters IV Catheter Type (from [facility]): Saline Lock Urinary Cath still in place: Yes Reason Cath still needed: urinary retention Assessment/Plan Chief Complaint/Hosp Course ASSESSMENT AND PLAN: 1. Healthcare-acquired pneumonia. Dr. Restrepo is following patient in infectious disease consultation. Dr. Newberry is following patient in pulmonology consultation. Continue oxygen supplementation and bronchodilators and pulmonary toilet. 2. Urinary tract infection, urine cultures positive for E. coli ESBL and enterococcus, continue contact isolation, continue abx per ID. 3. Advanced multiple sclerosis. Continue patient on Copaxone. 4. Dysphagia with G-tube. Continue G-tube feeding, monitor residual. Continue aspiration precautions. 5. Neurogenic bladder with chronic Brock catheter. Status post Brock catheter changed by Dr. Douglas on 05/21. 6. Hyperlipidemia. Continue Tricor. 7. Bedbound status. Continue to assist patient with activities of daily living. Continue Lovenox for deep venous thrombosis prophylaxis. Continue Prevacid for peptic ulcer disease prophylaxis. Plan of care and patient's condition discussed with patient's and patient's at the bedside. Further recommendations based on clinical course. Plan of care discussed with Dr. Brown. Problems: Subjective 24 Hr Interval Summary Free Text/Dictation Patient still has copious amount of secretions from tracheostomy, continue pulmonary toilet, remains afebrile, comfortable and supplemental oxygen via nasal cannula. Exam/Review of Systems Vital Signs Vitals Vital Signs Date Time Temp Pulse Resp B/P Pulse Ox O2 Delivery O2 Flow Rate FiO2 05/26/16 13:22 96 2.0 05/26/16 13:21 76 20 28 05/26/16 12:39 Nasal Cannula 05/26/16 07:44 98.4 114/56 Intake and Output 05/25/16 05/25/16 05/26/16 15:00 23:00 07:00 Intake Total 350 ml 250 ml Output Total 1650 ml 1600 ml Balance -1300 ml -1350 ml Exam PHYSICAL ASSESSMENT: GENERAL: Well-developed, well-nourished male, currently is awake, alert. HEENT: Head is atraumatic, normocephalic. PERRLA. NECK: Supple. Patient has a tracheostomy at the base of the neck with Passy- [place] valve. CHEST: Scattered rhonchi bilaterally, diminished at the bases. No wheezes noted. CARDIOVASCULAR: Normal S1, S2. No murmurs, gallops, clicks, rubs noted. ABDOMEN: Round, soft, nondistended, nontender. G-tube with intact stoma. There is no guarding or rebound tenderness. GENITOURINARY: Patient has a Brock catheter with yellow urine with slight sediment. EXTREMITIES: There is no edema, clubbing, cyanosis. Pulses equal bilaterally, 2+. MUSCULOSKELETAL: There is bilateral lower extremity muscle wasting. SKIN: There is no rash, petechiae noted. NEUROLOGIC: Patient is awake, alert, and oriented x3. Neurological status at the baseline. Results Result Diagram: 05/26/16 0510 05/26/16 0510 Results 24 hrs Laboratory Tests Test 05/26/16 05:10 Anion Gap 15 Basophils # 0.1 Basophils % 0.9 Blood Urea Nitrogen 14 Calcium Level 9.4 Carbon Dioxide Level 32 H Chloride Level 101 Creatinine 0.65 Eosinophils # 0.5 Eosinophils % 6.6 Glucose Level 89 Hematocrit 38.6 L Hemoglobin 12.4 L Lymphocytes # 1.6 Lymphocytes % 23.3 Mean Corpuscular Hemoglobin 30.4 Mean Corpuscular Hemoglobin Concent 32.1 Mean Corpuscular Volume 94.6 Mean Platelet Volume 12.6 H Monocytes # 0.5 Monocytes % 7.1 Neutrophils # 4.2 Neutrophils % 61.5 Nucleated Red Blood Cells # 0.0 Nucleated Red Blood Cells % 0.0 Platelet Count 273 Potassium Level 3.8 Red Blood Count 4.08 L Red Cell Distribution Width 12.9 Sodium Level 144 White Blood Count 6.8 Medications Medications Current Medications Baclofen (Lioresal) 20 mg QID GTB Last administered on 05/26/16 13:48; Admin Dose 20 MG; Start 05/18/16 at 09:00 Cholecalciferol (Vitamin D) 2,000 unit DAILY GTB Last administered on 09:42; Admin Dose 2,000 UNIT; Start 05/18/16 at 09:00 Dicyclomine HCl (Bentyl) 10 mg BID GTB Last administered on 05/26/16 09:42; Admin Dose 10 MG; Start 05/18/16 at 09:00 Diphenhydramine HCl (Benadryl) 25 mg DAILY PRN GTB ITCHING; Start 05/18/16 at 04 :30 Enoxaparin Sodium (Lovenox) 40 mg DAILY SC Last administered on 05/26/16 10:23 ; Admin Dose 40 MG; Start 05/18/16 at 09:00 Escitalopram Oxalate (Lexapro) 10 mg DAILY GTB Last administered on 05/26/16 09:42; Admin Dose 10 MG; Start 05/18/16 at 09:00 Lansoprazole (Prevacid) 30 mg DAILY@06 GTB Last administered on 05/26/16 06:09 ; Admin Dose 30 MG; Start 05/18/16 at 06:00 Lorazepam (Ativan) 1 mg HS GTB Last administered on 05/26/16 00:18; Admin Dose 1 MG; Start 05/18/16 at 21:00 Methenamine (Hiprex) 1 gm BID GTB Last administered on 05/26/16 09:42; Admin Dose 1 GM; Start 05/18/16 at 09:00 Fish Oil (Fish Oil) 1,000 mg DAILY PO Last administered on 05/26/16 09:42; Admin Dose 1,000 MG; Start 05/18/16 at 09:00 Saccharomyces Boulardii (Florastor) 250 mg BID GTB Last administered on 09:42; Admin Dose 250 MG; Start 05/18/16 at 09:00 Zolpidem Tartrate (Ambien) 5 mg QHS PRN GTB INSOMNIA Last administered on 00:20; Admin Dose 5 MG; Start 05/18/16 at 04:30 Miscellaneous Information 40 mg MON,WED,FRI SQ ; Start 05/18/16 at 04:30; Status UNV Miscellaneous Information 1 tbs Q6 MM ; Start 05/18/16 at 06:00; Status UNV Levetiracetam (Keppra Liquid) 1,000 mg BID GTB Last administered on 05/26/16 11:26; Admin Dose 1,000 MG; Start 05/18/16 at 09:00 Potassium Chloride (Potassium Chloride Pwd/Soln) 20 meq DAILY GTB Last administered on 3/14/17at 09:42; Admin Dose 20 MEQ; Start 05/18/16 at 09:00 Aspirin (Aspirin) 81 mg DAILY GTB Last administered on 05/26/16 09:42; Admin Dose 81 MG; Start 05/18/16 at 09:00 Miscellaneous Information Glatiramer Acetate (Copaxone)... Q8H XX ; Start at 08:00 Ertapenem 1 gm/ Sodium Chloride 100 ml @ 200 mls/hr Q24H IVPB Last administered on 05/26/16 16:02; Admin Dose 200 MLS/HR; Start 05/20/16 at 14:00 Vancomycin HCl/ Sodium Chloride (Vancocin/NS) 250 ml @ 83.333 mls/ hr Q12H IVPB Last administered on 05/26/16 12:27; Admin Dose 83.333 MLS/HR; Start at 00:00 Miscellaneous Information (*Rx Drug Level Order Reminder*) VANCOMYCIN TROUGH LEVEL... ONCE ONCE XX ; Start 05/27/16 at 11:00; Stop 05/27/16 at 11:01 TAYA PATINO May 26, 2016 16:09
[2016-05-26 20:02] VITALS: BP 100/58; RESP 20
[2016-05-27] MEDS: LORAZEPAM 1 MG TAB GTB SCH ×2 (00:14→21:00)
[2016-05-27] MEDS: VANCOMYCIN 1.25 GM in SOD CHLORIDE 0.9% 250 ML IVPB SCH ×2 (00:14→12:54)
[2016-05-27] MEDS: E LYTES MM SCH ×4 (00:15→16:18)
[2016-05-27] MEDS: [UNRECOGNIZED DRUG - OTHER] MM SCH ×4 (00:15→16:18)
[2016-05-27] MEDS: ALBUTEROL/IPRATROPIUM (NEB) 3 ML AMP HHN PRN (03:00)
[2016-05-27] MEDS: LANSOPRAZOLE 30 MG CAP GTB SCH (06:02)
[2016-05-27 06:13] LABS: ADD SCAN DIFF NO
[2016-05-27 06:26] LABS: BASOPHILS % 0.6 % (0.0-2.0); EOSINOPHILS # 0.5 10^3/ul (0.0-0.5); EOSINOPHILS % 7.5 % (0.0-7.0); HEMATOCRIT 38.6 % (42.0-52.0); HEMOGLOBIN 12.5 g/dl (14.0-18.0); LYMPHOCYTES # 1.6 10^3/ul (0.8-2.9); LYMPHOCYTES % 23.2 % (15.0-51.0); MEAN CORPUSCULAR HEMOGLOBIN 30.9 pg (29.0-33.0); MEAN CORPUSCULAR HGB CONC 32.4 g/dl (32.0-37.0); MEAN CORPUSCULAR VOLUME 95.5 fl (82.0-101.0); MEAN PLATELET VOLUME 12.4 fl (7.4-10.4); MONOCYTE # 0.5 10^3/ul (0.3-0.9); MONOCYTES % 7.6 % (0.0-11.0); NEUTROPHIL # 4.2 10^3/ul (1.6-7.5); NEUTROPHILS % 60.5 % (39.0-77.0); PLATELET COUNT 270 10^3/UL (140-415); RED BLOOD COUNT 4.04 10^6/ul (4.70-6.10); RED CELL DISTRIBUTION WIDTH 12.9 % (11.5-14.5)
[2016-05-27 06:31] LABS: POTASSIUM 3.7 mmol/L (3.5-5.1)
[2016-05-27 06:33] LABS: CREATININE 0.69 mg/dl (0.61-1.24)
[2016-05-27 06:34] LABS: CALCIUM 9.2 mg/dl (8.4-10.2)
[2016-05-27 07:31] VITALS: BP 120/61; RESP 16
[2016-05-27] MEDS: GLATIRAMER ACETATE 40 MG XX SCH ×3 (08:00→16:00)
[2016-05-27] MEDS: ALBUTEROL/IPRATROPIUM (NEB) 3 ML AMP HHN SCH ×3 (08:11→21:18)
[2016-05-27] MEDS: ESCITALOPRAM 10 MG TAB GTB SCH (09:43)
[2016-05-27] MEDS: POTASSIUM CHLORIDE 20 MEQ POWDER FOR ORAL SOLN GTB SCH (09:43)
[2016-05-27] MEDS: ASPIRIN 81 MG TAB GTB SCH (09:43)
[2016-05-27] MEDS: FISH OIL 1,000 MG CAP PO SCH (09:43)
[2016-05-27] MEDS: CHOLECALCIFEROL 2,000 UNIT CAP GTB SCH (09:43)
[2016-05-27] MEDS: METHENAMINE 1 GM TAB GTB SCH ×2 (09:43→21:37)
[2016-05-27] MEDS: SACCHAROMYCES BOULARDII 250 MG CAP GTB SCH ×2 (09:43→21:37)
[2016-05-27] MEDS: LEVETIRACETAM (100 MG/ML) 5ML CUP GTB SCH ×2 (09:43→21:39)
[2016-05-27] MEDS: DICYCLOMINE 10 MG CAP GTB SCH ×2 (09:44→21:38)
[2016-05-27] MEDS: BACLOFEN 10 MG TAB GTB SCH ×4 (09:44→21:37)
[2016-05-27] MEDS: ENOXAPARIN 40 MG/0.4 ML SYG SC SCH (09:46)
[2016-05-27] MEDS: ERTAPENEM SODIUM 1 GM in SOD CHLORIDE 0.9% 100 ML IVPB SCH ×2 (14:00→16:17)
--- NOTE | 2016-05-27 14:30 | CONS ---
Date/Time of Note Date/Time of Note DATE: 05/27/16 TIME: 14:29 Assessment/Plan Assessment/Plan Chief Complaint/Hosp Course SUBJECTIVE: No acute changes. The patient is alert, feels good, looks comfortable, no fevers. ANTIMICROBIALS: 1. Invanz. 2. Vancomycin. INDWELLINGS: Trach, Brock. PHYSICAL EXAMINATION: GENERAL: This is a chronically ill-appearing, elderly man who is awake, in no distress. HEENT: Head atraumatic, normocephalic. Sclerae anicteric. Buccal mucosa pink. NECK: Supple. Tracheostomy present. CHEST: Rise symmetrical. Breath sounds diminished at the bases. HEART: S1, S2. ABDOMEN: Soft. Bowel tones present. EXTREMITIES: Without cyanosis. ASSESSMENT: 1. Resolving sepsis. 2. Recurrent polymicrobial urinary tract infection. 3. Healthcare-associated pneumonia. 4. Neurogenic bladder. 5. Advantaged multiple sclerosis. PLAN: The patient remains stable, covered with appropriate antimicrobials, today is day #8. Urology on case. Continue on current antibiotics for 2 more days. ?dc plan dw staff Problems: Consultation Date/Type/Reason Admit Date/Time May 18, 2016 at 12:33 Initial Consult Date 05/18/16 Type of Consultation: ID Exam/Review of Systems Vital Signs Vitals Vital Signs Date Time Temp Pulse Resp B/P Pulse Ox O2 Delivery O2 Flow Rate FiO2 05/27/16 14:13 80 20 98 Nasal Cannula 4.0 05/27/16 07:31 98.0 120/61 05/26/16 13:21 28 Intake and Output 05/26/16 05/26/16 05/27/16 15:00 23:00 07:00 Intake Total 900 ml 1700 ml 1100 ml Output Total 1600 ml 950 ml Balance 900 ml 100 ml 150 ml Results Result Diagram: 05/27/16 0549 05/27/16 0549 Results 24 hrs Laboratory Tests Test 05/27/16 05:49 05/27/16 11:00 Anion Gap 16 Basophils # 0.0 Basophils % 0.6 Blood Urea Nitrogen 15 Calcium Level 9.2 Carbon Dioxide Level 30 Chloride Level 103 Creatinine 0.69 Eosinophils # 0.5 Eosinophils % 7.5 H Glucose Level 91 Hematocrit 38.6 L Hemoglobin 12.5 L Lymphocytes # 1.6 Lymphocytes % 23.2 Mean Corpuscular Hemoglobin 30.9 Mean Corpuscular Hemoglobin Concent 32.4 Mean Corpuscular Volume 95.5 Mean Platelet Volume 12.4 H Monocytes # 0.5 Monocytes % 7.6 Neutrophils # 4.2 Neutrophils % 60.5 Nucleated Red Blood Cells # 0.0 Nucleated Red Blood Cells % 0.0 Platelet Count 270 Potassium Level 3.7 Red Blood Count 4.04 L Red Cell Distribution Width 12.9 Sodium Level 145 H White Blood Count 7.0 Vancomycin Level Trough 15.9 Medications Medications Current Medications Baclofen (Lioresal) 20 mg QID GTB Last administered on 05/27/16 12:54; Admin Dose 20 MG; Start 05/18/16 at 09:00 Cholecalciferol (Vitamin D) 2,000 unit DAILY GTB Last administered on 09:43; Admin Dose 2,000 UNIT; Start 05/18/16 at 09:00 Dicyclomine HCl (Bentyl) 10 mg BID GTB Last administered on 05/27/16 09:44; Admin Dose 10 MG; Start 05/18/16 at 09:00 Diphenhydramine HCl (Benadryl) 25 mg DAILY PRN GTB ITCHING; Start 05/18/16 at 04 :30 Enoxaparin Sodium (Lovenox) 40 mg DAILY SC Last administered on 05/27/16 09:46 ; Admin Dose 40 MG; Start 05/18/16 at 09:00 Escitalopram Oxalate (Lexapro) 10 mg DAILY GTB Last administered on 05/27/16 09:43; Admin Dose 10 MG; Start 05/18/16 at 09:00 Lansoprazole (Prevacid) 30 mg DAILY@06 GTB Last administered on 05/27/16 06:02 ; Admin Dose 30 MG; Start 05/18/16 at 06:00 Lorazepam (Ativan) 1 mg HS GTB Last administered on 05/27/16 00:14; Admin Dose 1 MG; Start 05/18/16 at 21:00 Methenamine (Hiprex) 1 gm BID GTB Last administered on 05/27/16 09:43; Admin Dose 1 GM; Start 05/18/16 at 09:00 Fish Oil (Fish Oil) 1,000 mg DAILY PO Last administered on 05/27/16 09:43; Admin Dose 1,000 MG; Start 05/18/16 at 09:00 Saccharomyces Boulardii (Florastor) 250 mg BID GTB Last administered on 09:43; Admin Dose 250 MG; Start 05/18/16 at 09:00 Zolpidem Tartrate (Ambien) 5 mg QHS PRN GTB INSOMNIA Last administered on 00:20; Admin Dose 5 MG; Start 05/18/16 at 04:30 Miscellaneous Information 40 mg MON,WED,FRI SQ ; Start 05/18/16 at 04:30; Status UNV Miscellaneous Information 1 tbs Q6 MM ; Start 05/18/16 at 06:00; Status UNV Levetiracetam (Keppra Liquid) 1,000 mg BID GTB Last administered on 05/27/16 09:43; Admin Dose 1,000 MG; Start 05/18/16 at 09:00 Potassium Chloride (Potassium Chloride Pwd/Soln) 20 meq DAILY GTB Last administered on 05/27/16 09:43; Admin Dose 20 MEQ; Start 05/18/16 at 09:00 Aspirin (Aspirin) 81 mg DAILY GTB Last administered on 05/27/16 09:43; Admin Dose 81 MG; Start 05/18/16 at 09:00 Miscellaneous Information Glatiramer Acetate (Copaxone)... Q8H XX ; Start at 08:00 Ertapenem 1 gm/ Sodium Chloride 100 ml @ 200 mls/hr Q24H IVPB Last administered on 05/26/16 16:02; Admin Dose 200 MLS/HR; Start 05/20/16 at 14:00 Vancomycin HCl/ Sodium Chloride (Vancocin/NS) 250 ml @ 83.333 mls/ hr Q12H IVPB Last administered on 05/27/16 12:54; Admin Dose 83.333 MLS/HR; Start at 00:00 BIANCA RUBIO NP May 27, 2016 14:29
--- NOTE | 2016-05-27 16:43 | PN ---
Date/Time of Note Date/Time of Note DATE: 05/27/16 TIME: 16:42 Assessment/Plan VTE Prophylaxis VTE Prophylaxis Intervention: SCD's Lines/Catheters [facility] Lock Urinary Cath still in place: Yes Reason Cath still needed: urinary retention Assessment/Plan Chief Complaint/Hosp Course ASSESSMENT AND PLAN: 1. Healthcare-acquired pneumonia. Dr. Restrepo is following patient in infectious disease consultation. Dr. Newberry is following patient in pulmonology consultation. Continue oxygen supplementation and bronchodilators and pulmonary toilet. 2. Urinary tract infection, urine cultures positive for E. coli ESBL and enterococcus, continue contact isolation, continue abx per ID. 3. Advanced multiple sclerosis. Continue patient on Copaxone. 4. Dysphagia with G-tube. Continue G-tube feeding, monitor residual. Continue aspiration precautions. 5. Neurogenic bladder with chronic Brock catheter. Status post Brock catheter changed by Dr. Douglas on 05/21. 6. Hyperlipidemia. Continue Tricor. 7. Bedbound status. Continue to assist patient with activities of daily living. Continue Lovenox for deep venous thrombosis prophylaxis. Continue Prevacid for peptic ulcer disease prophylaxis. Further recommendations based on clinical course. Plan of care discussed with Dr. Brown. Problems: Subjective 24 Hr Interval Summary Free Text/Dictation Patient's continues to have large amount of secretions requiring suctioning, breathing and supplemental oxygen patient denies shortness of breath denies chest pain. Exam/Review of Systems Vital Signs Vitals Vital Signs Date Time Temp Pulse Resp B/P Pulse Ox O2 Delivery O2 Flow Rate FiO2 05/27/16 15:07 4.0 05/27/16 14:13 80 20 98 Nasal Cannula 05/27/16 07:31 98.0 120/61 05/26/16 13:21 28 Intake and Output 05/26/16 05/26/16 05/27/16 14:59 22:59 06:59 Intake Total 900 ml 1700 ml 1100 ml Output Total 1600 ml 950 ml Balance 900 ml 100 ml 150 ml Exam PHYSICAL ASSESSMENT: GENERAL: Well-developed, well-nourished male, currently is awake, alert. HEENT: Head is atraumatic, normocephalic. PERRLA. NECK: Supple. Patient has a tracheostomy at the base of the neck with [place] valve. CHEST: Scattered rhonchi bilaterally, diminished at the bases. No wheezes noted. CARDIOVASCULAR: Normal S1, S2. No murmurs, gallops, clicks, rubs noted. ABDOMEN: Round, soft, nondistended, nontender. G-tube with intact stoma. There is no guarding or rebound tenderness. GENITOURINARY: Patient has a Brock catheter with yellow urine with slight sediment. EXTREMITIES: There is no edema, clubbing, cyanosis. Pulses equal bilaterally, 2+. MUSCULOSKELETAL: There is bilateral lower extremity muscle wasting. SKIN: There is no rash, petechiae noted. NEUROLOGIC: Patient is awake, alert, and oriented x3. Neurological status at the baseline. Results Result Diagram: 05/27/16 0549 05/27/16 0549 Results 24 hrs Laboratory Tests Test 05/27/16 05:49 05/27/16 11:00 Anion Gap 16 Basophils # 0.0 Basophils % 0.6 Blood Urea Nitrogen 15 Calcium Level 9.2 Carbon Dioxide Level 30 Chloride Level 103 Creatinine 0.69 Eosinophils # 0.5 Eosinophils % 7.5 H Glucose Level 91 Hematocrit 38.6 L Hemoglobin 12.5 L Lymphocytes # 1.6 Lymphocytes % 23.2 Mean Corpuscular Hemoglobin 30.9 Mean Corpuscular Hemoglobin Concent 32.4 Mean Corpuscular Volume 95.5 Mean Platelet Volume 12.4 H Monocytes # 0.5 Monocytes % 7.6 Neutrophils # 4.2 Neutrophils % 60.5 Nucleated Red Blood Cells # 0.0 Nucleated Red Blood Cells % 0.0 Platelet Count 270 Potassium Level 3.7 Red Blood Count 4.04 L Red Cell Distribution Width 12.9 Sodium Level 145 H White Blood Count 7.0 Vancomycin Level Trough 15.9 Medications Medications Current Medications Baclofen (Lioresal) 20 mg QID GTB Last administered on 05/27/16 16:17; Admin Dose 20 MG; Start 05/18/16 at 09:00 Cholecalciferol (Vitamin D) 2,000 unit DAILY GTB Last administered on 09:43; Admin Dose 2,000 UNIT; Start 05/18/16 at 09:00 Dicyclomine HCl (Bentyl) 10 mg BID GTB Last administered on 05/27/16 09:44; Admin Dose 10 MG; Start 05/18/16 at 09:00 Diphenhydramine HCl (Benadryl) 25 mg DAILY PRN GTB ITCHING; Start 05/18/16 at 04 :30 Enoxaparin Sodium (Lovenox) 40 mg DAILY SC Last administered on 05/27/16 09:46 ; Admin Dose 40 MG; Start 05/18/16 at 09:00 Escitalopram Oxalate (Lexapro) 10 mg DAILY GTB Last administered on 05/27/16 09:43; Admin Dose 10 MG; Start 05/18/16 at 09:00 Lansoprazole (Prevacid) 30 mg DAILY@06 GTB Last administered on 05/27/16 06:02 ; Admin Dose 30 MG; Start 05/18/16 at 06:00 Lorazepam (Ativan) 1 mg HS GTB Last administered on 05/27/16 00:14; Admin Dose 1 MG; Start 05/18/16 at 21:00 Methenamine (Hiprex) 1 gm BID GTB Last administered on 05/27/16 09:43; Admin Dose 1 GM; Start 05/18/16 at 09:00 Fish Oil (Fish Oil) 1,000 mg DAILY PO Last administered on 05/27/16 09:43; Admin Dose 1,000 MG; Start 05/18/16 at 09:00 Saccharomyces Boulardii (Florastor) 250 mg BID GTB Last administered on 09:43; Admin Dose 250 MG; Start 05/18/16 at 09:00 Zolpidem Tartrate (Ambien) 5 mg QHS PRN GTB INSOMNIA Last administered on 00:20; Admin Dose 5 MG; Start 05/18/16 at 04:30 Miscellaneous Information 40 mg MON,WED,FRI SQ ; Start 05/18/16 at 04:30; Status UNV Miscellaneous Information 1 tbs Q6 MM ; Start 05/18/16 at 06:00; Status UNV Levetiracetam (Keppra Liquid) 1,000 mg BID GTB Last administered on 05/27/16 09:43; Admin Dose 1,000 MG; Start 05/18/16 at 09:00 Potassium Chloride (Potassium Chloride Pwd/Soln) 20 meq DAILY GTB Last administered on 05/27/16 09:43; Admin Dose 20 MEQ; Start 05/18/16 at 09:00 Aspirin (Aspirin) 81 mg DAILY GTB Last administered on 05/27/16 09:43; Admin Dose 81 MG; Start 05/18/16 at 09:00 Miscellaneous Information Glatiramer Acetate (Copaxone)... Q8H XX ; Start at 08:00 Ertapenem 1 gm/ Sodium Chloride 100 ml @ 200 mls/hr Q24H IVPB Last administered on 05/27/16 16:17; Admin Dose 200 MLS/HR; Start 05/20/16 at 14:00 Vancomycin HCl/ Sodium Chloride (Vancocin/NS) 250 ml @ 83.333 mls/ hr Q12H IVPB Last administered on 05/27/16 12:54; Admin Dose 83.333 MLS/HR; Start at 00:00 TAYA PATINO May 27, 2016 16:43
[2016-05-27 19:36] VITALS: BP 110/59; RESP 20
[2016-05-27] MEDS ORDERED: PERMETHRIN 5% 60 GM CR TOP ONE (21:00)
[2016-05-28] MEDS: VANCOMYCIN 1.25 GM in SOD CHLORIDE 0.9% 250 ML IVPB SCH ×2 (00:19→12:04)
[2016-05-28] MEDS: [UNRECOGNIZED DRUG - OTHER] MM SCH ×3 (00:23→12:03)
[2016-05-28] MEDS: LORAZEPAM 1 MG TAB GTB SCH (00:23)
[2016-05-28] MEDS: E LYTES MM SCH ×3 (00:23→12:03)
[2016-05-28] MEDS: ALBUTEROL/IPRATROPIUM (NEB) 3 ML AMP HHN PRN (02:43)
[2016-05-28 05:43] LABS: ADD SCAN DIFF NO
[2016-05-28 05:58] LABS: BASOPHIL # 0.1 10^3/ul (0.0-0.1); BASOPHILS % 0.8 % (0.0-2.0); EOSINOPHILS # 0.6 10^3/ul (0.0-0.5); EOSINOPHILS % 7.5 % (0.0-7.0); HEMATOCRIT 37.4 % (42.0-52.0); HEMOGLOBIN 12.2 g/dl (14.0-18.0); LYMPHOCYTES # 1.7 10^3/ul (0.8-2.9); LYMPHOCYTES % 23.1 % (15.0-51.0); MEAN CORPUSCULAR HEMOGLOBIN 31.2 pg (29.0-33.0); MEAN CORPUSCULAR HGB CONC 32.6 g/dl (32.0-37.0); MEAN CORPUSCULAR VOLUME 95.7 fl (82.0-101.0); MEAN PLATELET VOLUME 12.5 fl (7.4-10.4); MONOCYTE # 0.6 10^3/ul (0.3-0.9); MONOCYTES % 7.5 % (0.0-11.0); NEUTROPHIL # 4.5 10^3/ul (1.6-7.5); NEUTROPHILS % 60.4 % (39.0-77.0); PLATELET COUNT 265 10^3/UL (140-415); RED BLOOD COUNT 3.91 10^6/ul (4.70-6.10); WHITE BLOOD COUNT 7.5 10^3/ul (4.8-10.8)
[2016-05-28 06:09] LABS: POTASSIUM 3.8 mmol/L (3.5-5.1)
[2016-05-28 06:11] LABS: CREATININE 0.69 mg/dl (0.61-1.24)
[2016-05-28 06:12] LABS: CALCIUM 9.1 mg/dl (8.4-10.2)
[2016-05-28] MEDS: LANSOPRAZOLE 30 MG CAP GTB SCH (06:41)
[2016-05-28 07:34] VITALS: BP 106/55; RESP 16
[2016-05-28] MEDS: ALBUTEROL/IPRATROPIUM (NEB) 3 ML AMP HHN SCH ×2 (07:45→13:48)
[2016-05-28] MEDS: GLATIRAMER ACETATE 40 MG XX SCH ×3 (08:00→16:00)
[2016-05-28] MEDS: LEVETIRACETAM (100 MG/ML) 5ML CUP GTB SCH (08:21)
[2016-05-28] MEDS: METHENAMINE 1 GM TAB GTB SCH (08:21)
[2016-05-28] MEDS: DICYCLOMINE 10 MG CAP GTB SCH (08:21)
[2016-05-28] MEDS: ESCITALOPRAM 10 MG TAB GTB SCH (08:21)
[2016-05-28] MEDS: BACLOFEN 10 MG TAB GTB SCH ×3 (08:21→14:38)
[2016-05-28] MEDS: ASPIRIN 81 MG TAB GTB SCH (08:21)
[2016-05-28] MEDS: CHOLECALCIFEROL 2,000 UNIT CAP GTB SCH (08:22)
[2016-05-28] MEDS: FISH OIL 1,000 MG CAP PO SCH (08:22)
[2016-05-28] MEDS: SACCHAROMYCES BOULARDII 250 MG CAP GTB SCH (08:22)
[2016-05-28] MEDS: POTASSIUM CHLORIDE 20 MEQ POWDER FOR ORAL SOLN GTB SCH (08:22)
[2016-05-28] MEDS: ENOXAPARIN 40 MG/0.4 ML SYG SC SCH (08:30)
--- NOTE | 2016-05-28 11:06 | PDOCDIS ---
Discharge Instructions CONDITION Patient Condition: Stable HOME CARE INSTRUCTIONS: Special Diet: GTF ACTIVITY: Activity Restrictions: Slowly Increase Activity Rest between Activity Avoid heavy lifting Do not operate Machinery Do not operate Power Tool Avoid Heavy Housework Bathing Restrictions: Sponge Bath FOLLOW UP/APPOINTMENTS Appointments FU per Primary Care Physician. MIRIAN JHAVERI May 28, 2016 11:06
--- NOTE | 2016-05-28 12:11 | DS ---
Date/Time of Note Date/Time of Note DATE: 05/28/16 TIME: 12:11 Discharge Summary Admission/Discharge Info Admit Date/Time May 18, 2016 at 12:33 Discharge Date/Time Hospital Course ASSESSMENT AND PLAN: 1. Healthcare-acquired pneumonia. Dr. Restrepo is following patient in infectious disease consultation. Dr. Newberry is following patient in pulmonology consultation. Continue oxygen supplementation and bronchodilators and pulmonary toilet. 2. Urinary tract infection, urine cultures positive for E. coli ESBL and enterococcus, continue contact isolation, continue abx per ID. 3. Advanced multiple sclerosis. Continue patient on Copaxone. 4. Dysphagia with G-tube. Continue G-tube feeding, monitor residual. Continue aspiration precautions. 5. Neurogenic bladder with chronic Brock catheter. Status post Brock catheter changed by Dr. Douglas on 05/21. 6. Hyperlipidemia. Continue Tricor. 7. Bedbound status. Continue to assist patient with activities of daily living. Continue Lovenox for deep venous thrombosis prophylaxis. Continue Prevacid for peptic ulcer disease prophylaxis. Further recommendations based on clinical course. Plan of care discussed with Dr. Brown. Home Meds Reported Medications Enoxaparin Sodium* (Lovenox*) 40 Mg/0.4 Ml Syringe, 40 MG SC DAILY, SYR 03/14/16 Lansoprazole* (Lansoprazole*) 30 Mg Capsule.dr, 30 MG GTB DAILY, CAP 03/14/16 Zolpidem Tartrate* (Ambien*) 5 Mg Tablet, 5 MG GTB QHS Y for INSOMNIA, #30 TAB 03/14/16 Lorazepam* (Lorazepam*) 1 Mg Tablet, 1 MG GTB HS, #30 TAB 03/14/16 Fenofibrate Nanocrystallized* (Tricor*) 145 Mg Tablet, 145 MG GTB QHS, TAB 03/14/16 Escitalopram Oxalate* (Lexapro*) 10 Mg Tablet, 10 MG GTB DAILY, #30 TAB 03/14/16 Diphenhydramine Hcl* (Diphenhydramine Hcl*) 25 Mg Capsule, 25 MG GTB DAILY Y for ITCHING, CAP 01/11/16 Ubidecarenone (COENZYME Q10) 100 Mg Tablet, 200 MG GTB DAILY, TAB 07/18/15 Saliva Stimulant Agents Comb.2 (Biotene Oralbalance) 44.3 Ml Liquid, 1 TBS MM Q6 RINSE FOR 30 SECONDS THEN SPIT OUT 10/11/14 Saccharomyces Boulardii* (Florastor*) 250 Mg Cap, 250 MG GTB BID, CAP 10/11/14 Potassium Chloride* (Potassium Chloride*) 20 Meq/15 Ml Liquid, 20 MEQ GTB DAILY , ML 10/11/14 [place]-3 Fatty Acids/Fish Oil* (Fish Oil *) 1,000 Mg Capsule, 1000 MG GTB DAILY, CAP 10/11/14 Levetiracetam* (Keppra* (Ped)) 100 Mg/Ml Liq, 1000 MG GTB BID for 30 Days, BOTTLE 10/11/14 Ibandronate Sodium (Boniva) 3 Mg/3 Ml/Box Syringekit, 3 MG IV Q90 DAYS 10/11/14 Glatiramer Acetate (Copaxone) 40 Mg/1 Ml Syringe, 40 MG SQ MON,WED,Wed10/11/14 Dicyclomine Hcl* (Bentyl*) 10 Mg Capsule, 10 MG GTB BID, CAP 10/11/14 Cholecalciferol* (Vitamin D3*) 2,000 Unit Cap, 2000 UNIT GTB DAILY, CAP 10/11/14 Chlorpromazine Hcl* (Chlorpromazine Hcl*) 10 Mg Tablet, 10 MG GTB Q12 PRN, TAB 10/11/14 Baclofen* (Baclofen*) 20 Mg Tablet, 20 MG GTB QID, TAB 10/11/14 Methenamine Hippurate* (Hiprex*) 1 Gm Tab, 1 GM GTB BID 11/29/12 Aspirin Ec (Aspir 81) 81 Mg Tablet.dr, 81 MG GTB DAILY 11/29/12 Pending Labs Laboratory Tests Test 05/28/16 04:58 Anion Gap 14 (8-16) Basophils # 0.110^3/ul (0.0-0.1) Basophils % 0.8% (0.0-2.0) Blood Urea Nitrogen 16mg/dl (7-20) Calcium Level 9.1mg/dl (8.4-10.2) Carbon Dioxide Level 32mmol/L (21-31) Chloride Level 103mmol/L (97-110) Creatinine 0.69mg/dl (0.61-1.24) Eosinophils # 0.610^3/ul (0.0-0.5) Eosinophils % 7.5% (0.0-7.0) Glucose Level 87mg/dl (70-220) Hematocrit 37.4% (42.0-52.0) Hemoglobin 12.2g/dl (14.0-18.0) Lymphocytes # 1.710^3/ul (0.8-2.9) Lymphocytes % 23.1% (15.0-51.0) Mean Corpuscular Hemoglobin 31.2pg (29.0-33.0) Mean Corpuscular Hemoglobin Concent 32.6g/dl (32.0-37.0) Mean Corpuscular Volume 95.7fl (82.0-101.0) Mean Platelet Volume 12.5fl (7.4-10.4) Monocytes # 0.610^3/ul (0.3-0.9) Monocytes % 7.5% (0.0-11.0) Neutrophils # 4.510^3/ul (1.6-7.5) Neutrophils % 60.4% (39.0-77.0) Nucleated Red Blood Cells # 0.010^3/ul (0.0-0.0) Nucleated Red Blood Cells % 0.0/100WBC (0.0-0.0) Platelet Count 00559^3/UL (140-415) Potassium Level 3.8mmol/L (3.5-5.1) Red Blood Count 3.9110^6/ul (4.70-6.10) Red Cell Distribution Width 13.0% (11.5-14.5) Sodium Level 145mmol/L (135-144) White Blood Count 7.510^3/ul (4.8-10.8) MIRIAN JHAVERI May 28, 2016 12:11
[2016-05-28] MEDS: ERTAPENEM SODIUM 1 GM in SOD CHLORIDE 0.9% 100 ML IVPB SCH (14:39)
--- NOTE | 2016-05-28 15:31 | CONS ---
Date/Time of Note Date/Time of Note DATE: 05/28/16 TIME: 15:29 Assessment/Plan Assessment/Plan Chief Complaint/Hosp Course SUBJECTIVE: No acute changes. looks comfortable, no fevers. ANTIMICROBIALS: 1. Invanz. 2. Vancomycin. INDWELLINGS: Trach, Brock. PHYSICAL EXAMINATION: GENERAL: This is a chronically ill-appearing, elderly man who is awake, in no distress. HEENT: Head atraumatic, normocephalic. Sclerae anicteric. Buccal mucosa pink. NECK: Supple. Tracheostomy present. CHEST: Rise symmetrical. Breath sounds diminished at the bases. HEART: S1, S2. ABDOMEN: Soft. Bowel tones present. EXTREMITIES: Without cyanosis. ASSESSMENT: 1. Resolving sepsis. 2. Recurrent polymicrobial urinary tract infection. 3. Healthcare-associated pneumonia. 4. Neurogenic bladder. 5. Advantaged multiple sclerosis. PLAN: The patient remains stable, covered with appropriate antimicrobials, will give last dose tomorrow and then dc. ?dc plan dw staff Problems: Consultation Date/Type/Reason Admit Date/Time May 18, 2016 at 12:33 Initial Consult Date 05/18/16 Type of Consultation: ID Exam/Review of Systems Vital Signs Vitals Vital Signs Date Time Temp Pulse Resp B/P Pulse Ox O2 Delivery O2 Flow Rate FiO2 05/28/16 13:51 70 20 97 Nasal Cannula 4.0 05/28/16 07:34 97.8 106/55 05/26/16 13:21 28 Intake and Output 05/27/16 05/27/16 05/28/16 15:00 23:00 07:00 Intake Total 1150 ml 1050 ml Output Total 700 ml 800 ml Balance 450 ml 250 ml Results Result Diagram: 05/28/16 0458 05/28/16 0458 Results 24 hrs Laboratory Tests Test 05/28/16 04:58 Anion Gap 14 Basophils # 0.1 Basophils % 0.8 Blood Urea Nitrogen 16 Calcium Level 9.1 Carbon Dioxide Level 32 H Chloride Level 103 Creatinine 0.69 Eosinophils # 0.6 H Eosinophils % 7.5 H Glucose Level 87 Hematocrit 37.4 L Hemoglobin 12.2 L Lymphocytes # 1.7 Lymphocytes % 23.1 Mean Corpuscular Hemoglobin 31.2 Mean Corpuscular Hemoglobin Concent 32.6 Mean Corpuscular Volume 95.7 Mean Platelet Volume 12.5 H Monocytes # 0.6 Monocytes % 7.5 Neutrophils # 4.5 Neutrophils % 60.4 Nucleated Red Blood Cells # 0.0 Nucleated Red Blood Cells % 0.0 Platelet Count 265 Potassium Level 3.8 Red Blood Count 3.91 L Red Cell Distribution Width 13.0 Sodium Level 145 H White Blood Count 7.5 Medications Medications Current Medications Baclofen (Lioresal) 20 mg QID GTB Last administered on 05/28/16 14:38; Admin Dose 20 MG; Start 05/18/16 at 09:00 Cholecalciferol (Vitamin D) 2,000 unit DAILY GTB Last administered on 08:22; Admin Dose 2,000 UNIT; Start 05/18/16 at 09:00 Dicyclomine HCl (Bentyl) 10 mg BID GTB Last administered on 05/28/16 08:21; Admin Dose 10 MG; Start 05/18/16 at 09:00 Diphenhydramine HCl (Benadryl) 25 mg DAILY PRN GTB ITCHING; Start 05/18/16 at 04 :30 Enoxaparin Sodium (Lovenox) 40 mg DAILY SC Last administered on 05/28/16 08:30 ; Admin Dose 40 MG; Start 05/18/16 at 09:00 Escitalopram Oxalate (Lexapro) 10 mg DAILY GTB Last administered on 05/28/16 08:21; Admin Dose 10 MG; Start 05/18/16 at 09:00 Lansoprazole (Prevacid) 30 mg DAILY@06 GTB Last administered on 05/28/16 06:41 ; Admin Dose 30 MG; Start 05/18/16 at 06:00 Lorazepam (Ativan) 1 mg HS GTB Last administered on 05/28/16 00:23; Admin Dose 1 MG; Start 05/18/16 at 21:00 Methenamine (Hiprex) 1 gm BID GTB Last administered on 05/28/16 08:21; Admin Dose 1 GM; Start 05/18/16 at 09:00 Fish Oil (Fish Oil) 1,000 mg DAILY PO Last administered on 05/28/16 08:22; Admin Dose 1,000 MG; Start 05/18/16 at 09:00 Saccharomyces Boulardii (Florastor) 250 mg BID GTB Last administered on 08:22; Admin Dose 250 MG; Start 05/18/16 at 09:00 Zolpidem Tartrate (Ambien) 5 mg QHS PRN GTB INSOMNIA Last administered on 00:20; Admin Dose 5 MG; Start 05/18/16 at 04:30 Miscellaneous Information 40 mg MON,WED,FRI SQ ; Start 05/18/16 at 04:30; Status UNV Miscellaneous Information 1 tbs Q6 MM ; Start 05/18/16 at 06:00; Status UNV Levetiracetam (Keppra Liquid) 1,000 mg BID GTB Last administered on 05/28/16 08:21; Admin Dose 1,000 MG; Start 05/18/16 at 09:00 Potassium Chloride (Potassium Chloride Pwd/Soln) 20 meq DAILY GTB Last administered on 05/28/16 08:22; Admin Dose 20 MEQ; Start 05/18/16 at 09:00 Aspirin (Aspirin) 81 mg DAILY GTB Last administered on 05/28/16 08:21; Admin Dose 81 MG; Start 05/18/16 at 09:00 Miscellaneous Information Glatiramer Acetate (Copaxone)... Q8H XX ; Start at 08:00 Ertapenem 1 gm/ Sodium Chloride 100 ml @ 200 mls/hr Q24H IVPB Last administered on 05/28/16 14:39; Admin Dose 200 MLS/HR; Start 05/20/16 at 14:00 Vancomycin HCl/ Sodium Chloride (Vancocin/NS) 250 ml @ 83.333 mls/ hr Q12H IVPB Last administered on 05/28/16 12:04; Admin Dose 83.333 MLS/HR; Start at 00:00 BIANCA RUBIO NP May 28, 2016 15:30
[2016-08-14] MEDS ORDERED: IBANDRONATE SODIUM XX SCH (09:00)
== END 2016-05-28 16:40 | DRG 698 ==
LOC: E/R 22:01 → TEL 23:55 → OBSVTOIN 05-18 12:33 → MS2 05-23 01:00
PROVIDERS: ADMIT Internal Medicine; ATTEND Internal Medicine
DX: T83.511A Infection and inflammatory reaction due to indwelling urethral catheter, initial encounter (principal); J69.0 Pneumonitis due to inhalation of food and vomit; J96.10 Chronic respiratory failure, unspecified whether with hypoxia or hypercapnia; Z93.0 Tracheostomy status; G82.20 Paraplegia, unspecified; R13.10 Dysphagia, unspecified; N39.0 Urinary tract infection, site not specified; N31.9 Neuromuscular dysfunction of bladder, unspecified; G35 Multiple sclerosis; Z93.1 Gastrostomy status; Z74.01 Bed confinement status; E78.5 Hyperlipidemia, unspecified; B96.20 Unspecified Escherichia coli [E. coli] as the cause of diseases classified elsewhere; Z16.12 Extended spectrum beta lactamase (ESBL) resistance; A49.02 Methicillin resistant Staphylococcus aureus infection, unspecified site; Z93.2 Ileostomy status; B95.2 Enterococcus as the cause of diseases classified elsewhere; B96.1 Klebsiella pneumoniae [K. pneumoniae] as the cause of diseases classified elsewhere
CPT/HCPCS: 36415; 36600; 71010; 80048; 80053; 80202; 81001; 81003; 82803; 83605; 84484; 85025; 85610; 85730; 87040; 87070; 87081; 87086; 93005; 94640; 94664; 96365; 96375; 97110; 97161; 97530; G0378; J0692; J1335; J1650; J3230; J3370; J7050

== ENCOUNTER 2017-07-02 04:24 | Inpatient (IN) | END 2017-07-12 19:15 | DRG 871 ==

== ENCOUNTER 2017-09-16 00:12 | Inpatient (IN) | END 2017-09-23 14:01 | DRG 698 ==

== ENCOUNTER 2018-05-31 09:54 | Emergency (ER) | payer MEDICARE, OTHER ==
[~2018-05-31] VITALS: Ht 170.2 cm; Wt 70.0 kg
[~2018-05-31 09:54] MED LIST changes: +ACET-2047 GTB; +ALBU2.5V3 NEB; +AMIN30LI GTB; -ASPI-535 GTB; +ASPI-903 GTB; -CHLO10TA4 GTB; +CHOL100062 GTB; -CHOL2000 GTB; +CRAN3875 GTB; +DICY10CA40 GTB; -DICY10CA60 GTB; -DIPH25CA6 GTB; +DOCU-159 GTB; +FAMO20TA18 PO; +FER325 GTB; -HIPR1 GTB; -IBAN3DIS2 IV; -LANS30CA GTB; +MAGN400O19 GTB; +METH1TAB58 GTB; +MINE133E23 PR; +MULTI GTB; +OMEG-176 GTB; -OMEG100011 GTB; +OMEP20CA16 GTB; +POTA20LI15 GTB; -POTA20LI5 GTB; -SALI44.32 MM; +SALI473M2 MM; -ZOLP5TAB GTB
[2018-05-31 10:00] VITALS: Ht 170.2 cm; Wt 70.0 kg
--- NOTE | 2018-05-31 10:29 | ERD ---
ER Documentation Chief Complaint Chief Complaint BIB BLS FOR [facility]. HPI This is a 67-year-old man with advanced multiple sclerosis, neurogenic bladder with chronic Brock catheter placement, bedbound state, recurrent UTIs and hematuria presenting with 2 days of blood in the Brock catheter bag. was at the bedside states the Brock catheter was successfully replaced last week, patient has had recent URI symptoms that resolved, no recent fevers or chills, no vomiting or diarrhea, no other complaints. Patient is now currently using antibiotics. ROS All systems reviewed and are negative except as per history of present illness. Medications Home Meds Reported Medications Ascorbic Acid* (Vitamin C*) 500 Mg Capsule.sa, 500 MG GTB DAILY, CAP 05/31/18 Bisacodyl (Dulcolax) 10 Mg Supp.rect, 10 MG RC EVERY 3 DAYS PRN for CONSTIPATION, SUPP.RECT 05/31/18 Albuterol Sulfate* (Albuterol Sulfate* Neb) 0.083%-3 Ml Neb, 2.5 MG NEB Q6, #30 VIAL WITH ATROVENT 0.5MG 05/31/18 Albuterol Sulfate* (Albuterol Sulfate* Neb) 0.083%-3 Ml Neb, 2.5 MG NEB Q3H PRN for WHEEZING AND SOB, #30 VIAL WITH ATROVENT 0.5MG 05/31/18 Acetaminophen* (Acetaminophen*) 500 MG Extra Strength Tablet, 1000 MG PO Q6H PRN for MODERATE PAIN LEVEL 4-6, TAB 05/31/18 Acetaminophen* (Acetaminophen*) 650 Mg Tablet, 650 MG PO DAILY PRN for PRIOR TO WOUND CARE, #30 TAB 05/31/18 Acetaminophen* (Acetaminophen*) 650 Mg Tablet, 650 MG GTB Q6H PRN for MILD PAIN AND FEVER, #30 TAB 05/31/18 Cholecalciferol* (Vitamin D3*) 1,000 Unit Tablet, 2000 UNIT GTB DAILY, TAB 04/08/18 Cran/Vitc/Mannose/Inulin/Brom (Uti-Stat Liquid) 3,875 Mg/30 Ml Liquid, 3875 MG GTB BID 04/08/18 Fenofibrate Nanocrystallized* (Tricor*) 145 Mg Tablet, 145 MG GTB DAILY, TAB 04/08/18 Amino Acids/Protein Hydrolys (PRO-STAT LIQUID) 30 Ml Liquid.pkt, 30 ML GTB DAILY 04/08/18 Omeprazole* (Omeprazole*) 20 Mg Capsule.dr, 20 MG GTB DAILY, #30 CAP 04/08/18 Multivitamins* (Theragran*) 1 Tab Tab, 1 TAB GTB DAILY, TAB 04/08/18 Magnesium Hydroxide* (Milk Of Magnesia*) 400 Mg/5 Ml Oral.susp, 30 ML GTB DAILY, ML 04/08/18 Mineral Oil* (Fleet* Mineral Oil Enema) 133 Ml Oil, 133 ML HI NEEDED PRN for CONSTIPATION, ENEMA 04/08/18 [place]-3S/Dha/Epa/Fish Oil (Fish Oil 1,000 mg Softgel) 1 Each Capsule, 1 EACH GTB DAILY, CAP 04/08/18 Ferrous Sulfate* (Ferrous Sulfate*) 325 Mg Tabec, 330 MG GTB DAILY, TAB 04/08/18 Famotidine* (Famotidine*) 20 Mg Tablet, 20 MG PO DAILY, #30 TAB 04/08/18 Docusate Sodium* (Docusate Sodium*) 100 Mg Capsule, 100 MG GTB DAILY, #30 CAP 04/08/18 Saliva Substitution Combo No.9 (Biotene) 473 Ml Mouthwash, 1 TBS MM Q6, BOTTLE 04/08/18 Aspirin* (Aspirin* Chew) 81 Mg Tab.chew, 81 MG GTB DAILY, TAB.CHEW 04/08/18 Enoxaparin Sodium* (Lovenox*) 40 Mg/0.4 Ml Syringe, 40 MG SC DAILY, SYR 03/14/16 Lorazepam* (Lorazepam*) 1 Mg Tablet, 1 MG GTB HS, #30 TAB 03/14/16 Escitalopram Oxalate* (Lexapro*) 10 Mg Tablet, 10 MG GTB DAILY, #30 TAB 03/14/16 Ubidecarenone (COENZYME Q10) 100 Mg Tablet, 200 MG GTB DAILY, TAB 07/18/15 Saccharomyces Boulardii* (Florastor*) 250 Mg Cap, 250 MG GTB DAILY, CAP 10/11/14 Potassium Chloride* (Potassium Chloride*) 20 Meq/15 Ml Liquid, 20 MEQ GTB DAILY, ML 10/11/14 Levetiracetam* (Keppra* (Ped)) 100 Mg/Ml Liq, 1000 MG GTB BID for 30 Days, BOTTLE 10/11/14 Glatiramer Acetate (Copaxone) 40 Mg/1 Ml Syringe, 40 MG SQ WED,WED,Wed10/11/14 Dicyclomine HCl (Dicyclomine HCl) 10 Mg Capsule, 10 MG GTB BID, CAP 10/11/14 Baclofen* (Baclofen*) 20 Mg Tablet, 20 MG GTB QID, TAB 10/11/14 Methenamine Hippurate* (Hiprex*) 1 Gm Tab, 1 GM GTB BID 11/29/12 Discontinued Reported Medications Albuterol Sulfate* (Albuterol Sulfate* Neb) 0.083%-3 Ml Neb, 2.5 MG NEB Q6 PRN for SHORTNESS OF BREATH, #30 VIAL 04/08/18 Acetaminophen* (Acetaminophen*) 650 Mg Tablet, 650 MG GTB Q6H PRN for PAIN AND OR ELEVATED TEMP, #30 TAB 04/08/18 Allergies Allergies: Coded Allergies: phenobarbital (Verified Allergy, Mild, UNK, 05/31/18) phenytoin (Verified Allergy, Mild, UNK, 05/31/18) PMhx/Soc Patient has advanced multiple sclerosis, quadriplegia, and is bedbound, receives IVIG monthly, history of chronic respiratory failure with tracheostomy tube and dysphasia, history of hematuria and urethral stricture, chronic urinary tract infections, neurogenic bladder requiring chronic Brock catheter placement, history of kidney stones, depression, seizure disorder History of Surgery: Yes (TONSILLECTOMY-9YRS OLD,BLADDER SX 2X) Anesthesia Reaction: No Hx Neurological Disorder: Yes Hx Respiratory Disorders: Yes Hx Cardiac Disorders: No Hx Psychiatric Problems: No Hx Miscellaneous Medical Probl: No Hx Alcohol Use: No Hx Substance Use: No Hx Tobacco Use: No FmHx Family History: No diabetes Physical Exam Vitals Vital Signs Date Temp Pulse Resp B/P (MAP) Pulse Ox O2 O2 Flow FiO2 Time Delivery Rate 05/31/18 67 16 114/65 95 Room Air 13:12 (81) 05/31/18 98.5 70 18 135/78 99 10:00 (97) Physical Exam Const: No acute distress, afebrile HEENT: No Kernig sign, no goiter, pink conjunctive a Resp: Clear to auscultation bilaterally Cardio: Regular rate and rhythm, no murmurs Abd: Soft, non tender, non distended. Skin: No petechiae or rashes, appears clean and dry, no visible ulcers Back: No midline or flank tenderness Ext: No cyanosis, or edema, muscular contractures to the extremities Neur: Awake and alert x2, able to answer questions, quadriplegic, pupils equal round reactive to light, diffuse muscular wasting Psych: Normal Mood and Affect Result Diagram: 05/31/18 1217 05/31/18 1217 Results 24 hrs Laboratory Tests Test 05/31/18 12:17 White Blood Count 5.3 10^3/ul Red Blood Count 4.13 10^6/ul Hemoglobin 13.0 g/dl Hematocrit 39.9 % Mean Corpuscular Volume 96.6 fl Mean Corpuscular Hemoglobin 31.5 pg Mean Corpuscular Hemoglobin Concent 32.6 g/dl Red Cell Distribution Width 13.2 % Platelet Count 214 10^3/UL Mean Platelet Volume 12.3 fl Immature Granulocytes % 0.200 % Neutrophils % 63.2 % Lymphocytes % 20.8 % Monocytes % 9.6 % Eosinophils % 5.3 % Basophils % 0.9 % Nucleated Red Blood Cells % 0.0 /100WBC Immature Granulocytes # 0.010 10^3/ul Neutrophils # 3.4 10^3/ul Lymphocytes # 1.1 10^3/ul Monocytes # 0.5 10^3/ul Eosinophils # 0.3 10^3/ul Basophils # 0.1 10^3/ul Nucleated Red Blood Cells # 0.0 10^3/ul Prothrombin Time 13.1 Sec Prothrombin Time Ratio 1.0 INR International Normalized Ratio 0.98 Activated Partial Thromboplast Time 30.9 Sec Urine Color RED Urine Clarity CLOUDY Urine pH 7.0 Urine Specific [place] 1.008 Urine Ketones NEGATIVE mg/dL Urine Nitrite NEGATIVE mg/dL Urine Bilirubin NEGATIVE mg/dL Urine Urobilinogen NEGATIVE mg/dL Urine Leukocyte Esterase 3+ Magy/ul Urine Microscopic RBC > 182 /HPF Urine Microscopic WBC 89 /HPF Urine Amorphous Crystals MODERATE /HPF Urine Bacteria FEW /HPF Urine Hemoglobin 3+ mg/dL Urine Glucose NEGATIVE mg/dL Urine Total Protein NEGATIVE mg/dl Sodium Level 143 mmol/L Potassium Level 4.0 mmol/L Chloride Level 107 mmol/L Carbon Dioxide Level 29 mmol/L Anion Gap 7 Blood Urea Nitrogen 10 mg/dl Creatinine 0.66 mg/dl Est Glomerular Filtrat Rate mL/min > 60 mL/min Glucose Level 87 mg/dl Calcium Level 9.5 mg/dl Total Bilirubin 0.1 mg/dl Direct Bilirubin 0.00 mg/dl Indirect Bilirubin 0.1 mg/dl Aspartate Amino Transf (AST/SGOT) 20 IU/L Alanine Aminotransferase (ALT/SGPT) 13 IU/L Alkaline Phosphatase 54 IU/L Total Protein 7.1 g/dl Albumin 3.8 g/dl Globulin 3.30 g/dl Albumin/Globulin Ratio 1.15 Lipase 28 U/L Procedures/MDM IV line was established patient was placed on cardiac care unit nurse rhythm strip revealed a sinus rhythm at about 80 bpm with upright P and T waves. Patient was afebrile, urine cultures have been ordered results are pending I will follow-up. I spoke to Dr. Douglas regarding the patient's presentation and symptomatology, he knows the patient well and suspects hemorrhagic cystitis and recommended admission for UTI and continued workup, possible Brock catheter replacement. CBC and electrolytes were normal liver function tests normal, coagulation profile normal, urine analysis was positive for infection. I administered cefepime 1 g IV x1 Patient will be admitted to [facility] for continued medical management and urology consultation. Departure Diagnosis: Primary Impression: Dehydration Additional Impressions: Multiple sclerosis Quadriplegia Neurogenic bladder Hemorrhagic cystitis Condition: ROSAMARIA Canales MD May 31, 2018 10:29
[2018-05-31] MEDS ORDERED: ACET-2047 GTB (12:40)
[2018-05-31] MEDS ORDERED: ACET-2047 PO (12:41)
[2018-05-31] MEDS ORDERED: ACET-141 PO (12:42)
[2018-05-31] MEDS ORDERED: ALBU2.5V3 NEB ×2 (12:44)
[2018-05-31] MEDS ORDERED: ASCO500C7 GTB (12:54)
[2018-05-31] MEDS ORDERED: BISA10SU55 RC (12:54)
[2018-05-31] MEDS ORDERED: CEFEPIME 1GM/50 ML (PMX) 50 ML IVPB ONE (13:30)
--- NOTE | 2018-05-31 16:40 | EN ---
Date/Time of Note Date/Time of Note DATE: 05/31/18 TIME: 16:39 ER Progress Note Observation Note: Time: 4 hours Family Hx: No Hypertension Evaluation: Multiple exams showed improving symptoms and no evidence of clinical decompensation His urologist Dr. Fournier evaluated patient in the ER and did not think the patient need to be admitted. I discussed the patient with his physician Dr. Brown who agree with the plan. He will be discharged back to the group home ABBY ANGULO MD May 31, 2018 16:40
[2018-05-31 18:09] VITALS: BP 122/72; PULSE 68; RESP 18
--- NOTE | 2018-05-31 19:14 | HP ---
DATE OF ADMISSION: 05/31/2018 CHIEF COMPLAINT: Hematuria. HISTORY OF PRESENT ILLNESS: The patient is a 67-year-old gentleman with advanced multiple sclerosis, history of bladder calculi, recurrent UTI, dyslipidemia, seizure disorder, dysphagia, chronic respir atory failure. The patient was noted to have hematuria at subacute unit and urine culture was sent. The patient, however, had persistent hematuria and the patient was sent to ER for further evaluation and management. The patient did not have any fever or chills. There was no reported diaphoresis, n o reported vomiting. The patient was seen in ER and was noted to have no fever or tachycardia. The patient, however, had some hematuria in the urine bag and mild amount in a Brock catheter. The patie nt was kept in the ER for a few hours and Dr. Douglas was called from urology standpoint. He came an d examined the patient in the evening today. The patient by that time had received 1 dose of cefepim e and his urine started becoming clear. The patient's lab evaluation revealed normal white count; th erefore decision was made to send him back to subacute unit and will have followup on his urine cultu re. The patient denies any chest pain or abdominal pain. No reported vomiting. [facility] The patient remains bedbound to wheelchair-bound. No reported leg chen ma. PAST MEDICAL HISTORY: As stated above. The patient also has history of asymptomatic cholelithiasis. PAST SURGICAL HISTORY: The patient is status post tonsillectomy, tracheostomy and G-tube placement. SOCIAL HISTORY: No smoking or alcohol. The patient is resident of [facility]. FAMILY HISTORY: Father at age 54 due to pancreatic cancer. Mother had coronary artery disease and CVA. ALLERGIES: 1. PHENOBARBITAL. 2. DILANTIN. BOTH CAUSE RASH. PHYSICAL EXAMINATION: GENERAL: Revealed the patient to be awake, alert, fairly oriented. VITAL SIGNS: At the time of presentation to the ER, temperature 98.5, pulse 70, respiration 18, bloo d pressure 135/78, O2 saturation 99% on room air. HEENT: No eye discharge or redness. Conjunctivae and lids are normal. Oropharynx is grossly negati ve. NECK: Tracheostomy is plugged. No mass. CHEST: Fairly clear. No use of accessory muscles. CARDIOVASCULAR: S1, S2 normal. No murmur. ABDOMEN: Soft, nondistended, nontender. G-tube in place. EXTREMITIES: No leg edema. NEUROLOGIC: The patient is awake, alert with quadriplegia. LABORATORY DATA: Done today in the ER, WBC 5.3, hemoglobin 13, platelets 214. Sodium 140, potassium 4, BUN 10, creatinine 0.6, glucose 87, calcium 9.5. AST 20, ALT 13, alkaline phosphatase 54, albumi n 3.8. IMPRESSION: 1. Hematuria, probably related to bladder calculi. Rule out cystitis. The patient in the past has had extended-spectrum beta-lactamase polymicrobial urinary tract infection sensitive to amikacin. Ho wever, the patient currently has improved hematuria and has no fever or and no diaphoresis. We will continue to hold off on treatment at this time. The patient was seen by Dr. Douglas and also c leared him to go back to subacute unit. 2. Multiple sclerosis. The patient will continue baclofen for muscle spasm and IVIG as before. 3. Seizure disorder, stable with current dose of Keppra. 4. Dyslipidemia. Continue TriCor. 5. Respiratory failure. Continue trach care and breathing treatment. 6 Depression. Continue Lexapro and Ativan on p.r.n. basis for anxiety. The patient also will gavi nue Copaxone as before. Plan of care was discussed with the ER physician, Dr. Emerson Angulo, patient and his , Christie. I have requested a urine culture result from subacute unit once available. CONDITION ON DISCHARGE: Stable. DIET: Through G-tube. Dictated By: IGNACIO MCGUIRE MD AB/NTS Conf#: [id number] DID#: [id number] CC: EMERSON ANGULO MD;*EndCC*
== END 2018-05-31 18:29 | disposition short-term general hospital (02) ==
LOC: E/R 09:54 → CANBEDREQ 16:58 → E/R 18:29
DX: E86.0 Dehydration (principal); G35 Multiple sclerosis; G82.50 Quadriplegia, unspecified; N31.9 Neuromuscular dysfunction of bladder, unspecified; N30.90 Cystitis, unspecified without hematuria; R40.2142 Coma scale, eyes open, spontaneous, at arrival to emergency department; R40.2252 Coma scale, best verbal response, oriented, at arrival to emergency department; R40.2362 Coma scale, best motor response, obeys commands, at arrival to emergency department; Z79.82 Long term (current) use of aspirin
CPT/HCPCS: 36415; 80053; 81001; 83690; 85025; 85610; 85730; 87086; 96374; 99285; J0692